=== PATIENT | female | born 1980 | race Caucasian/White ===

== ENCOUNTER 2024-08-13 10:58 | Emergency (ER) | payer SELFPAY ==
[2024-08-13 11:36] VITALS: BP 122/95; PULSE 90; RESP 18; TEMP 37.1; O2SAT 99
--- NOTE | 2024-08-13 12:01 | ECG_ITS ---
Test Date: 2024-08-13 12:47:29 Measurements Intervals Spencer Rate: 92 P: 62 DE: 142 QRS: 44 QRSD: 95 T: 63 QT: 351 QTc: 435 Interpretive Statements SINUS RHYTHM POSSIBLE LEFT ATRIAL ENLARGEMENT INCOMPLETE RIGHT BUNDLE BRANCH BLOCK BASELINE WANDER- I, AVL, V3 BORDERLINE ECG No previous ECG available for comparison Electronically Signed On 08-13-2024 12:50:28 CDT by Anastacio Ledbetter D.O.
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
[2024-08-13 12:46] LABS: Basophils Absolute Auto 0.1 K/mm3 (0.0-0.1); Basophils Percent Auto 1.3 % (0.2-1.2); Eosinophils Percent Auto 0.2 % (0-4.4); Hematocrit 41.8 % (37.0-47.0); Hemoglobin 13.8 g/dL (12.0-15.0); Immature Granulocyte Absolute 0.01 K/mm3 (0.00-0.031); Immature Granulocyte Percent A 0.2 % (0-0.5); Lymphocytes Absolute Auto 1.63 K/mm3 (0.9-3.2); Lymphocytes Percent Auto 35.4 % (18.3-44.2); Mean Corpuscular Hemoglobin 29.9 pg (26-34); Mean Corpuscular Volume 90.7 fl (80-100); Mean Platelet Volume 8.9 fl (7.4-10.4); Monocytes Absolute Auto 0.4 K/mm3 (0.1-0.6); Monocytes Percent Auto 7.8 % (2.6-8.5); Neutrophils Absolute Auto 2.5 K/mm3 (1.3-6.7); Neutrophils Percent Auto 55.1 % (45.5-73.1); Platelet Count Result 251 k/mm3 (150-375); Red Blood Count 4.61 M/mm3 (4.2-5.4); White Blood Count 4.6 K/mm3 (4.5-10.0)
[2024-08-13 12:55] LABS: Alanine Aminotransferase 64 U/L (6-35); Albumin Level 4.3 g/dL (3.5-5.1); Alkaline Phosphatase 101 U/L (38-126); Anion Gap 12 mmol/L (4-12); Aspartate Amino Transferase 89 U/L (14-36); Bilirubin,Total 0.1 mg/dL (0.2-1.3); Blood Urea Nitrogen 11 mg/dL (7-17); Calcium 8.4 mg/dL (8.4-10.2); Carbon Dioxide 26 mmol/L (22-30); Chloride 104 mmol/L (98-107); Estimated CRCL calculation 100 ml/min; Estimated Glomerular Filt Rate > 60; Glucose 145 mg/dL (65-110); Magnesium 1.9 mg/dL (1.6-2.3); Potassium 3.9 mmol/L (3.4-5.0); Sodium 142 mmol/L (137-145)
[2024-08-13 12:57] LABS: Acetaminophen < 10 ug/mL (10-30); Ethanol 250 mg/dL (<10); Salicylate < 1.0 mg/dL (2-20)
[2024-08-13 13:15] LABS: BEDSIDEPREGUCG Negative (Negative)
[2024-08-13 13:19] LABS: Add Urine Microscopic? NO; Appearance Urine Clear (Clear); Bilirubin Urine Negative (Negative); Blood Urine Negative (Negative); Color Urine Yellow (Yellow); Glucose Urine UA Negative (Negative); Ketones Urine Negative (Negative); Leukocyte Esterase Ur Negative LEU/UL (Negative); Nitrate Urine Negative (Negative); Protein Urine Negative (Negative); Specific Grav Ur 1.017 (1.001-1.035); Urobilinogen Urine 0.2 mg/dL (<2.0); pH Urine 6.5 (5.0-9.0)
[2024-08-13 13:21] LABS: Influenza A QL RT-PCR Negative (Negative); Influenza B QL RT-PCR Negative (Negative); RSV RNA, RT-PCR Negative (Negative); SARS-CoV-2 RNA PCR Negative (Negative)
[2024-08-13] MEDS: LACTATED RINGERS 2,000 ML 999 ML IV CONT (13:34)
[2024-08-13 13:40] LABS: Amphetamine Screen Urine Negative (Negative); Barbiturate Screen Urine Negative (Negative); Benzodiazepines Screen Urine Negative (Negative); Cannabinoid Screen Urine Positive (Negative); Cocaine Screen Urine Negative (Negative); Methadone Screen Urine Negative (Negative); Opiate Screen Urine Negative (Negative); Phencyclidine Screen Urine Negative (Negative)
[2024-08-13 13:47] LABS: Lipase 292 U/L (23-300)
[2024-08-13 13:53] LABS: Thyroid Stimulating Hormone Reflex 0.183 uIU/mL (0.465-4.68)
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
[2024-08-13 14:21] LABS: Free T4 Free Thyroxine Reflex 0.92 ng/dL (0.78-2.19)
--- NOTE | 2024-08-13 15:05 | PC.NURSE ---
Ordered pt a food tray
[2024-08-13 15:39] VITALS: BP 135/92; PULSE 104; RESP 18; O2SAT 99
[2024-08-13 16:07] LABS: Total Triiodothyronine (T3) 1.18 NG/ML (0.97-1.69)
--- OUTSIDE RECORDS SUMMARY | 2024-08-13 16:48 | XMS_ITS | Encounter Summary ---
Author Organization [facility] Address [address] [place] [address] Care Team Providers Care Animal Attendant Name Role Phone Unavailable Primary Care Provider Unavailabl e Reason for Visit * Reason Onset Date Comments Alcohol Problem 10/04/2019 Spoke germain/Tayo corcoran d patient is on list Encounter Details Date Type Department Care Team (Late st Contact Info) Description 10/04/2019 Telephone [facility] Admitting [address] [place] [address] [place] [address] [facility] [address] [place] [address] Alcohol Problem (Spoke w/Tayo and patient is on list) Social History Tobacco Use Types Packs/Day Years Used Date Smoking Tobacco: Every Day Cigarettes E-Cigarette/Mist Inh alation Device Smokeless Tobacco: Never Alcohol Use Standard Drinks/Week Comments Yes 2.5 (1 standard drin k = 0.6 oz pure alcohol) Pt states I drink a lot everyday Comments No Sex and Gender Information Value Date Recorded Sex Assigned at Not on file 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 No / Unsure 09/30/2019 10:51 PM CDT documented as of this encounter Plan of Treatment Not on file documented as of this encounter Visit Diagnoses Not on filedocumented in this encounter Additional Health Concerns Infection Onset Date Last Indicated Resolved Time R/O C. diff 07/08/2023 07/08/2023 07/08/2023 12:2 3 PM CDT C Diff 07/08/2023 07/08/2023 09/06/2023 1:16 AM CDT R/O C. diff 07/22/2024 07/22/2024 07/23/2024 7:46 AM CDT documented as of this encounter
--- OUTSIDE RECORDS SUMMARY | 2024-08-13 16:48 | XMS_ITS | Encounter Summary ---
Author Organization [facility] Address [address] [place] [address] Care Team Providers Care Equipment Operat0R Name Role Phone Elen Kong MD Primary Care Provider [phone] Encounter Details Date Type Department Care Team (Late st Contact Info) Description 07/14/2007 Orders Only [facility] Internal Medicine - [facility] [address] [address] [facility] [address] [place] [address] Delia Murphy, ANP [address] [place] [address] Social History Tobacco Use Types Packs/Day Years Used Date Smoking Tobacco: Never Assessed Comments Unknown Sex and Gender Information Value Date Recorded Sex Assigned at Not on file 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 MEDICATIONS: WELLBUTRIN XL ORAL TABLET 24 HR 150 MG, 1 po q AM x 3 days then 2 po q AM, 60 Dispensed, status: CONTINUED, 06/28/2007. [id number] RECEIVED FAXED REQUEST FROM THE PHARMACY DOCTOR`S RESPONSE: [email or web address] 07/14/07 at 02:50 pm MEDICATIONS: WELLBUTRIN XL ORAL TABLET 24 HR 150 MG, 1 po q AM x 3 days then 2 po q AM, 60 Dispensed, status: CONTINUED, 07/14/2007. FINAL ACTION: roger 07/14/07 at 02:54 pm Called pharmacy at 07/14/07 at 02:54 pm. Electronically Signed by: Daniella Robbins on Saturday, July 14, 2007 documented in this encounter Plan of Treatment Not on file documented as of this encounter Visit Diagnoses Not on filedocumented in this encounter Additional Health Concerns Infection Onset Date Last Indicated Resolved Time R/O C. diff 07/08/2023 07/08/2023 07/08/2023 12:2 3 PM CDT C Diff 07/08/2023 07/08/2023 09/06/2023 1:16 AM CDT R/O C. diff 07/22/2024 07/22/2024 07/23/2024 7:46 AM CDT documented as of this encounter Care Teams Equipment Operat0R Relationship Specialty Start Date End Date Elen Kong MD [address] [facility] [address] [place] [phone] PCP - General Internal Medicine 07/21/17 11/13/18 documented as of this encounter
--- OUTSIDE RECORDS SUMMARY | 2024-08-13 16:48 | XMS_ITS | Encounter Summary ---
Author Organization [facility] Address 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 Gender Identity Not on file Sexual Orientation Not on file documented as of this encounter Plan of Treatment Not on file documented as of this encounter Procedures Procedure Name Priority Date/Time Associated Diagnosis Comments CBC WITH DIFFERENTIAL Routine 07/29/2007 7:00 AM CDT TSH Routine 07/29/2007 7:00 AM CDT COMPREHENSIVE METABOLIC PANEL Routine 07/29/2007 7:00 AM CDT documented in this encounter Results * TSH (07/29/2007 7:00 AM CDT) TSH 0.79 mIU/L [facility] Comment: REFERENCE RANGE: > OR = 20 YEARS: 0.40-4.50 RANGES FIRST TRIMESTER 0.20-4.70 SECOND TRIMESTER 0.30-4.10 THIRD TRIMESTER 0.40-2.70 Test Performed at: [facility] [place] [address] [place] [address] SHIRA PADILLA MD Narrative [facility] - 07/29/2007 7:00 AM CDT Ordered by MELITON CAMACHO us Historical Provider CHEMISTRY ORDERABLES Final R esult [facility] [address] [place] [address] * CBC WITH DIFFERENTIAL (07/29/2007 7:00 AM CDT) WBC 7.6 3.8 - 10.8 Thousand/u L [facility] . [facility] RBC 4.44 3.80 - 5.10 Million/uL [facility] . [facility] HEMOGLOBIN 13.9 11.7 - 15.5 g/dL [facility] HEMATOCRIT 40.9 35.0 - 45.0 % [facility] . [facility] MCV 92.3 80.0 - 100.0 fL [facility] MCH 31.3 27.0 - 33.0 pg [facility] . [place] MCHC 33.9 32.0 - 36.0 g/dL [facility] . [facility] RDW 13.8 11.0 - 15.0 % [facility] . [place] PLATELETS 333 140 - 400 Thousand/u L [facility] . [facility] NEUTROPHIL ABSOLUTE 4,735 1,500 - 7,800 cells/uL [facility] . [facility] LYMPHOCYTE ABSOLUTE 2,067 850 - 3,900 cells/uL [facility] MONOCYTE ABSOLUTE 578 200 - 950 cells/uL [facility] . [place] EOSINOPHIL ABSOLUTE 160 15 - 500 cells/uL [facility] BASOPHILS ABSOLUTE 61 0 - 200 cells/uL [facility] NEUTROPHIL 62.3 % [facility] LYMPHOCYTES 27.2 % [facility] MONOCYTE 7.6 % [facility] EOSINOPHILS 2.1 % [facility] BASOPHILS 0.8 % [facility] Comment: Test Performed at: [facility] [address] [facility] [place] [address] SHIRA PADILLA MD Narrative [facility] - 07/29/2007 7:00 AM CDT Ordered by MELITON CAMACHO Historical Provider HEMATOLOGY ORDERABLES Final Result [facility] [address] [place] [address] * (ABNORMAL) COMPREHENSIVE METABOLIC PANEL (07/29/2007 7:00 AM CDT) GLUCOSE 99 65 - 99 mg/dL [facility] Comment:FASTING REFERENCE IN TERVAL BUN 5(L) 7 - 25 mg/dL [facility] CREATININE 0.74 0.50 - 1.20 mg/dL [facility] GFR >60 > OR = 60 mL/min/1.7 3m2 [facility] GFR, >60 > OR = 60 mL/min/1.7 3m2 [facility] BUN/CREAT RATIO 7 6 - 22 (calc) [facility] SODIUM 139 135 - 146 mmol/L [facility]. [facility] POTASSIUM 3.9 3.5 - 5.3 mmol/L [facility] . [facility] CHLORIDE 105 98 - 110 mmol/L [facility] . [facility] CO2 23 21 - 33 mmol/L [facility] . [facility] CALCIUM 9.2 8.6 - 10.2 mg/dL [facility]. [facility] TOTAL PROTEIN 7.4 6.2 - 8.3 g/dL [facility] ALBUMIN 4.5 3.6 - 5.1 g/dL [facility]. [facility] GLOBULIN 2.9 2.2 - 3.9 g/dL (calc) [facility]. [facility] ALBUMIN/GLOBULIN RATIO 1.6 1.0 - 2.1 (calc) [facility] BILIRUBIN TOTAL 0.5 0.2 - 1.2 mg/dL [facility] ALKALINE PHOSPHATASE 48 33 - 115 U/L [facility]. [facility] AST 12 10 - 30 U/L [facility]. [facility] ALT 6 6 - 40 U/L [facility] Comment: Test Performed at: [facility] [place] [address] [place] [address] SHIRA PADILLA MD Narrative [facility] - 07/29/2007 7:00 AM CDT Ordered by MELITON CAMACHO us Historical Provider CHEMISTRY ORDERABLES Final R esult [facility] [address] [place] [address] documented in this encounter Visit Diagnoses Not on filedocumented in this encounter Additional Health Concerns Infection Onset Date Last Indicated Resolved Time R/O C. diff 07/08/2023 07/08/2023 07/08/2023 12:2 3 PM CDT C Diff 07/08/2023 07/08/2023 09/06/2023 1:16 AM CDT R/O C. diff 07/22/2024 07/22/2024 07/23/2024 7:46 AM CDT documented as of this encounter Care Teams Tip Puncher Relationship Specialty Start Date End Date Elen Kong MD [address] [facility] [address] [place] [address] PCP - General Internal Medicine 07/21/17 11/13/18 documented as of this encounter
--- OUTSIDE RECORDS SUMMARY | 2024-08-13 16:48 | XMS_ITS | Encounter Summary ---
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 Gender Identity Not on file Sexual Orientation Not on file documented as of this encounter Progress Notes * [employer] [employer] - 09/21/2007 6:13 PM CDT TIME:09:23 am PATIENT`S HOME PHONE: PATIENT`S WORK PHONE: PATIENT`S INSURANCE: ANTHEM WHO TOOK THE CALL: Caroline Austin GENERAL INFORMATION * [employer], [employer] - 09/21/2007 6:13 PM CDT TIME:09:24 am PATIENT`S HOME PHONE: PATIENT`S WORK PHONE: PATIENT`S INSURANCE: ANTHEM WHO TOOK THE CALL: Caroline Austin GENERAL INFORMATION PCP: SECTION 1: need written rx and signed by to be faxed to [phone] wellbutrin xl oral tab 24 hr 150mg and also stratera printed and in the acute REQUESTED ACTION [email or web address] 06/28/07 at 09:35 am: MEDICATION REQUEST: Patient requests a refill. MEDICATIONS: WELLBUTRIN XL ORAL TABLET 24 HR 150 MG, 1 po q AM x 3 days then 2 po q AM, 60 Dispensed, status: CONTINUED, 06/28/2007. STRATTERA ORAL CAPSULE CONVENTIONAL 40 MG, one tablet daily for 3 days, then 2 tablets daily in AM,60 Dispensed, status: NEW PRESCRIPTION, 06/28/2007. STRATTERA ORAL CAPSULE CONVENTIONAL 40 MG, one tablet daily for 3 days, then 2 tablets daily in AM,60 Dispensed, status: CONTINUED, 06/28/2007. DOCTOR`S RESPONSE: oleg 06/28/07 at 05:32 pm done Electronically Signed by: Mary Camacho MD on Thursday, June 28, 2007 * [facility] [employer] - 09/21/2007 6:10 PM CDT TIME:11:57 am PATIENT`S HOME PHONE: PATIENT`S WORK PHONE: PATIENT`S INSURANCE: MIC WHO TOOK THE CALL: Janeth Whitney GENERAL INFORMATION WHO CALLED: [facility] SECTION 1: written REQUESTED ACTION [email or web address] 06/28/07 at 11:57 am: They need written order to discontinue her lexapro fax # [phone] FINAL ACTION: [email or web address] 06/28/07 at 05:38 pm ADDITIONAL COMMENTS: faxed Electronically Signed by: Caroline Austin on Thursday, June 28, 2007 documented in this encounter Plan of [...] documented as of this encounter Care Teams Hairspring Studder Relationship Specialty Start Date End Date Elen Kong MD [address] [facility] [address] [place] [address] PCP - General Internal Medicine 07/21/17 11/13/18 documented as of this encounter
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
--- OUTSIDE RECORDS SUMMARY | 2024-08-13 16:48 | XMS_ITS | Encounter Summary ---
Author Organization [facility] Address [address] [place] [address] Care Team Providers Care Converter Skimmer Name Role Phone Elen Kong MD Primary Care Provider [phone] Encounter Details Date Type Department Care Team (Late st Contact Info) Description 12/10/2008 Outpatient Historical [facility], [address] Mary Camacho MD [address] [place] [address] [place] [address] Urinary Tract Infection, Site not Specified Social History Tobacco Use Types Packs/Day Years Used Date Smoking Tobacco: Never Alcohol Use Standard Drinks/Week Comments Not Asked 0 (1 standard drink = 0.6 oz pur e alcohol) Comments No Sex and Gender Information Value Date Recorded Sex Assigned at Not on file Legal Sex Female 4:05 AM FARM ADVISOR Gender Identity Not on file Sexual Orientation Not on file documented as of this encounter Plan of Treatment Not on file documented as of this encounter Visit Diagnoses Diagnosis Urinary tract infection, site not specified documented in this encounter Additional Health Concerns Infection Onset Date Last Indicated Resolved Time R/O C. diff 07/08/2023 07/08/2023 07/08/2023 12:2 3 PM CDT C Diff 07/08/2023 07/08/2023 09/06/2023 1:16 AM CDT R/O C. diff 07/22/2024 07/22/2024 07/23/2024 7:46 AM CDT documented as of this encounter Care Teams Converter Skimmer Relationship Specialty Start Date End Date Elen Kong MD [address] [place] [address] [place] [id number] PCP - General Internal Medicine 07/21/17 11/13/18 documented as of this encounter
--- OUTSIDE RECORDS SUMMARY | 2024-08-13 16:48 | XMS_ITS | Encounter Summary ---
Author Organization [facility] Address [address] [place] [address] Care Team Providers Care Ssn/Ssbn Weapons Equipment Operator Name Role Phone Elen Kong MD Primary Care Provider [phone] Encounter Details Date Type Department Care Team (Late st Contact Info) Description 07/26/2007 Outpatient Historical [facility] Internal Medicine - [facility] [address] [id number] [facility] [address] [place] [address] Mary Camacho MD Social History Tobacco Use Types Packs/Day Years Used Date Smoking Tobacco: Never Assessed Comments Unknown Sex and Gender Information Value Date Recorded Sex Assigned at Not on file Legal Sex Female 4:05 AM SOLAR SALES REP Gender Identity Not on file Sexual Orientation [...] documented as of this encounter Care Teams Ssn/Ssbn Weapons Equipment Operator Relationship Specialty Start Date End Date Elen Kong MD [address] [facility] [address] [place] [address] PCP - General Internal Medicine 07/21/17 11/13/18 documented as of this encounter
--- OUTSIDE RECORDS SUMMARY | 2024-08-13 16:48 | XMS_ITS | Clinical Summary ---
Author Organization [facility] Address [address] [place] [address] Care Team Providers Care Intermodal Owner Operator Truck Driver Name Role Phone Family Care, Progressive Unavailable [phone] Miscellaneous, Not In File Unavailable Unava ilable Gurpreet Shirley MD Unavailable [phone] Gurpreet Fleming MD Primary Care Provider [phone] Allergies Active Allergy Reactions Criticality Noted Date [...] (NATHALY/BAD1/MDD/PTSD) Assessment & Plan (04/30/2024 6:56 PM HEAD OF DESIGN): Patient initially presented to the ED with [...] baseline, remains perseverative on discharge, going to [facility] as soon as possible. Discussed with patient that she will need to bring her previously, recently, filled medications from home (including doxepin, BuSpar, olanzapine, added these to her discharge instructions) with her to [facility] or have her mother pick them [...] use + has agreed to go to [facility] Alcohol withdrawal syndrome without complication 09/04/2023 [...] 01/27/2021 Assessment & Plan (04/30/2024 6:52 PM HEAD OF DESIGN): Patient states yes history of PTSD, with [...] Plan: - Librium 25 mg q24h - [facility] protocol - Ativan 2 mg for scores >8 - Ativan 4 mg for seizures - Regular diet - Folate, MV, Thiamine supplementation - Consults to auto service instructor, social work faculty member, and nutrition - PT/OT to prevent deconditioning while inpatient - Fall/Seizure/Aspiration precautions - Zofran and Reglan PRN - Follow up with Dr. Cervantes and Dr. Melissa at discharge - Appointment with Dr. Melissa for 01/20 at 10:30 am - Interested in [facility] after discharge - Also interested in discharging with Acamprosate Assessment & Plan (04/30/2024 6:51 PM HEAD OF DESIGN): Patient has a longstanding history of alcohol [...] Recommendations: - Please admit patient [facility]OLUNTARY to [facility] or [facility] under Dr. Booker under standard suicide/elopement/assault precautions (continue these in the ED). - Voluntary paperwork signed, faxed to Patient Placement, and placed in patient's physical chart. - Discussed with ED team and psychiatry corporate intern on-call, who are in agreement. - [...] Unspecified 02/10/2021,01/22/2019 Td, adsorbed 04/18/2005,09/17/1995 Tdap 08/22/2019 Surgical History Surgery Date Site/Laterality Comments OTHER SURGICAL HISTORY 1994 Orbital fracture AUGMENTATION MAMMOPLASTY breast augmentation Medical History Medical History Date Comments Hx Other Medical 2012 nasal surgery Seizures (HCC) Anxiety Depression Family History Medical History Relation Name Comments Prostate cancer Father Cancer -pros kirby; /Cancer, prostate; Bipolar disorder Sister Relation Name Status Comments Father Alive Sister Social History Tobacco Use Types Packs/Day Years Used Date Smoking Tobacco: Every Day Vaping Smokeless Tobacco: Never Tobacco Cessation:Ready to Q uit: Not Asked; Counseling Given: Not Answered Alcohol Use Standard Drinks/Week Comments No 0 (1 standard drink = 0.6 oz pur e alcohol) [facility] Utilities Answer Date Recorded In the past 12 months has e [employer], oil, or water [employer] threatened to shut off services in your [...] often do you attend chur ch or zoroastrian services? 1 to 4 times per year 04/25/2024 Do you belong to any clubs o r organizations such as latter-day groups, unions, fraternal or athletic groups, or [...] and heating? Not hard at all 04/25/2024 [facility] [facility] Occupat ional Health - Occupational Stress Questionnaire Answer Date Recorded [...] place to sleep or slept in a prison (including now)? No 12/29/2022 Housing Stability Vital Sign Answer Naren e Recorded In the last 12 months, was t here a time when you were not able to pay the mortgage or rent on time? No 04/25/2024 In the past 12 months, how m any times have you moved where you were living? 1 04/25/2024 At any time in the past 12 m [facility], were you homeless or living in a prison (including now)? No 04/25/2024 Personal Safety Answer [...] 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, DIRECTOR OF RESEARCH AND DEVELOPMENT, KRUPA) 01/27/2021 Comments No Sex and Gender Information Value Date Recorded Sex Assigned at Not on file Legal Sex Female 10:48 PM HEAD OF DESIGN Gender Identity Not on file Sexual Orientation Not on file Occupation Industry Job Start Date Job End Date Unemployed Not on file Not on file Not on file Obstetrics History Last Filed Vital Signs Vital Sign Reading Time Taken Comments Blood Pressure 109/88 04/30/2024 9:29 AM HEAD OF DESIGN Pulse 85 04/30/2024 9:29 AM HEAD OF DESIGN Temperature 36.8 C (98.2 F) 04/30/2024 9:29 AM HEAD OF DESIGN Respiratory Rate 18 04/30/2024 9:29 AM HEAD OF DESIGN Oxygen Saturation 99% 04/30/2024 9:29 AM HEAD OF DESIGN Inhaled Oxygen Concentration - - Weight 49.9 kg (110 lb) 04/24/2024 6:28 AM HEAD OF DESIGN Height 175.3 cm (5' 9 ) 04/24/2024 9:32 PM HEAD OF DESIGN Body Mass Index 16.24 04/24/2024 6:28 AM HEAD OF DESIGN Plan of Treatment Health Maintenance Due Date Last Done Comments Breast Cancer Screening-Mammogram 1980 Cervical Cancer Screening 1980 Depression Screening 1980 Varicella Vaccines (1 of 2 - 13+ 2-dose series) 1993 Hepatitis B Screening 1998 Regular Well Visit/Exam 18-64 1998 Pneumococcal vaccine <65 (1 of 2 - PCV) 1999 Covid-19 Vaccine (2 - season) 2023 09/01/2020 Influenza Vaccine (Season Ended) 2024 05/17/2023, 02/10/2021, 12/25/2019, Additional history exists DTaP/Tdap/Td Vaccine (4 - Td or Tdap) 08/21/2029 08/22/2019, 10/27/2018, 01/23/2006, Additional history exists Hepatitis C Screening Completed 04/25/2024, 023 HPV Vaccines Aged Out No longer eligi ble based on patient's age to complete this topic Procedures Procedure Name Priority Date/Time Associated Diagnosis Comments HEPATITIS C ANTIBODY Routine 04/25/2024 1:44 PM HEAD OF DESIGN from Last 3 Months or Most Recently Relevant to Health Maintenance Results * Hepatitis C antibody Blood (04/25/2024 1:44 PM HEAD OF DESIGN) Hep C Ab Nonreactive Nonreactive Comment:Antibodies to HCV no t detected. Does NOT exclude the possibility of recent exposure to HCV. Current interpretive data was last revised on 21 Blood 04/25/2024 1:44 PM HEAD OF DESIGN 04/25/2024 4:36 PM HEAD OF DESIGN us Jose Barrera MD LAB MICROBIOLOGY - GENER AL ORDERABLES Final Result [facility] Department [place] [address] from Last 3 Months or Most Recently Relevant to Health Maintenance Insurance [employer] EXCH[employer] Advance Directives For more information, please contact: [phone] * Full Code (Latest Code Status on [...] 10:16 AM 08/13/2022 7:12 PM Care Teams Intermodal Owner Operator Truck Driver Relationship Specialty Start Date End Date Gurpreet Fleming MD [address] [place] [address] PCP - General Family Medicine 09/05/23 Family Care, Progressive [address] [facility] 08/13/22 Miscellaneous, Not In File 12/29/22 Gurpreet Shirley MD Emergency Medicine 09/05/23
--- OUTSIDE RECORDS SUMMARY | 2024-08-13 16:48 | XMS_ITS | Encounter Summary ---
Author Organization [facility] Address [address] [place] [address] Care Team Providers Care Assembler Steam And Gas Turbine Name Role Phone Elen Kong MD Primary Care Provider [phone] Encounter Details Date Type Department Care Team (Late st Contact Info) Description 07/07/2007 Outpatient Historical [facility] Internal Medicine - [facility] [address] [id number] [facility] [address] [place] [address] Mary Camacho MD Social History Tobacco Use Types Packs/Day Years Used Date Smoking Tobacco: Never Assessed Comments Unknown Sex and Gender Information Value Date Recorded Sex Assigned at Not on file Legal Sex Female 4:05 AM REPEATER OPERATOR Gender Identity Not on file Sexual Orientation Not on file documented as of this encounter Last Filed Vital Signs Vital Sign Reading Time Taken Comments Blood Pressure 110/74 07/07/2007 11:00 AM CDT Pulse 86 07/07/2007 11:00 AM CDT Temperature 36.7 C (98 F) 07/07/2007 11:00 AM CDT Respiratory Rate - - Oxygen Saturation - - Inhaled Oxygen Concentration - - Weight 56.7 kg (125 lb) 07/07/2007 11:00 AM CDT Height - - Body Mass Index - - documented in this encounter Plan of Treatment [...] documented as of this encounter Care Teams Assembler Steam And Gas Turbine Relationship Specialty Start Date End Date Elen Kong MD [address] [facility] [address] [place] [address] PCP - General Internal Medicine 07/21/17 11/13/18 documented as of this encounter
--- OUTSIDE RECORDS SUMMARY | 2024-08-13 16:48 | XMS_ITS | Encounter Summary ---
Author Organization [facility] Address [address] [place] [address] Care Team Providers Care Meter Reader Inspector Name Role Phone Unavailable Primary Care Provider Unavailabl e Reason for Visit * Reason Onset Date Comments NAUSEA & LOSS OF APPETITE, E PALOMA ABUSE 10/04/2019 SPOKE WITH NICOL @ DR TALIA ESCOBAR'S OFFICE Encounter Details Date Type Department Care Team (Late st Contact Info) Description 10/04/2019 Telephone [facility] Admitting [id number] [place] [address] [place] [address] [place] [address] NAUSEA & LOSS OF APPETITE, ETOH ABUSE (SPOKE WITH NICOL @ DR CROOK'S OFFICE) Social History Tobacco Use Types Packs/Day Years [...] on file Legal Sex Female 4:05 AM ASSOCIATE STORE DIRECTOR Gender Identity Not on file Sexual Orientation [...]
--- OUTSIDE RECORDS SUMMARY | 2024-08-13 16:48 | XMS_ITS | Clinical Summary ---
Author Organization [facility] [employer] Address [address] [address] Phone Care Team Providers Care Casino Cashier Manager Name Role Phone Shannon Ortiz MD Primary Care Provider [phone] Allergies Active Allergy Reactions Criticality Noted Date Comments Amoxicillin Rash Low 10/18/2023 Levofloxacin Other 01/03/2023 Feels like law is splitting Medications folic acid (Folvite) 1 MG tablet Take by mouth in the morning. Active naltrexone ER (Vivitrol) injection Inject 4 mL (380 mg) into the shoulder, thigh, or buttocks every 28 (twenty-eight) days. 1.2 each 11 4 Active cetirizine (ZyrTEC) 10 MG tabletIndicatio ns:Sinus congestion TAKE 1 TABLET(10 MG) BY MOUTH IN THE MORNING 90 tablet 2 4 Active cyclobenzaprine (Flexeril) 10 MG tabletIndicatio ns:Muscle spasm Take 1 tablet (10 mg) by mouth if needed at bedtime for muscle spasms. 30 tablet 4 Active disulfiram (Antabuse) 250 MG tablet Take 1 tablet (250 mg) by mouth in the morning. 30 tablet 4 Active acamprosate (Campral) 333 MG EC tablet Take 2 tablets (666 mg) by mouth in the morning, at noon, and at bedtime. Do not crush, chew, or split. 180 tablet 2 4 Active nabumetone (Relafen) 500 MG tablet Take 1 tablet (500 mg) by mouth in the morning and at bedtime. 30 tablet 4 03/27/20 25 Active gabapentin (Neurontin) 100 MG capsule Take 1 capsule (100 mg) by mouth if needed in the morning, at noon, and at bedtime (neuropathic pain). 30 capsule 4 09/24/19 25 Active ofloxacin (Floxin) 0.3 % otic solution Administer 3 drops into the right ear in the morning and at bedtime. 10 mL 4 Active Hospital, Clinic, or Other Facility Administered Medication Ordered Dose Route Frequency Start Date End Date Status naltrexone ER (Vivitrol) injection 380 mgIndications:Encounter for long-term (current) use of medications 380 mg IM Every 28 days 09/19/2023 08/20/2024 Act chinedu Active Problems Problem Noted Date Diagnosed Date Encounter for hearing screening with abnormal fi ndings 03/26/2024 Right hip pain 05/22/2023 Assessment & Plan (05/22/2023 7:51 AM WIRING MECHANIC): Right Hip XR ordered Advised to take tylenol as needed for pain/inflammation. Sinus congestion 05/22/2023 Assessment & Plan (05/22/2023 7:51 AM WIRING MECHANIC): Zyrtec prescribed for sinus congesiton Ruptured ear drum, left 01/03/2023 Assessment & Plan (01/03/2023 3:53 PM CDT): Augmentin prescribed to be taken as directed. Left foot pain 01/03/2023 Assessment & Plan (01/03/2023 3:53 PM CDT): Advised to take ibuprofen/tylenol as needed for pain/inflammation. Muscle spasm of left lower extremity 01/03/2023 Assessment & Plan (01/03/2023 3:53 PM CDT): Flexeril prescribed to be used as needed. Advised it will cause drowsiness, dizziness and nausea Frequent urination 01/03/2023 Bipolar I disorder with sue (HCC ([facility]) 01/03/2023 PTSD (post-traumatic stress disorder) 01/27/2021 01/03/2023 Major depressive disorder, recurrent 11/04/2020 01/03/2023 Assessment & Plan (09/20/2023 8:45 PM CDT): Continue wellbutrin as directed. Patient is following up with Dr. Melissa next week. Assessment & Plan (05/22/2023 7:53 AM WIRING MECHANIC): Decreased Welbutrin dose from 300 to 150 ADHD (attention deficit hyperactivity disorder) 08/23/2016 01/03/2023 Alcohol abuse 06/07/2013 01/03/2023 Overview (01/03/2023): Last Assessment & Plan: Patient with many year history of alcohol abuse, frequent inpatient admissions for detox or complications of alcohol use. Per PCP avoid librium or any other meds with potential for abuse. Last drink was immediately prior to arrival in ED. - [facility] protocol - patient prefers not to address substance abuse during this admission - supplement thiamine, folate Assessment & Plan (09/20/2023 8:48 PM CDT): Madelin is following with Dr. Melissa next week on 09/19/2023. Librium prescribed to help with withdrawal and anxiety as needed at night. Continue propranolol as directed Continue doxepin as directed Continue prazosin as directed Assessment & Plan (01/03/2023 4:00 PM CDT): - Referral -states she has appointment with psychiatrist next week. Resolved Problems Problem Noted Date Diagnosed Date Resolved Date Depression 05/22/2023 09/19/2023 Encounters Date Type Department Care Team Description 08/01/2024 Telephone [facility] [address] [place] [address] Shannon Ortiz MD Hospital Follow-up 05/21/2024 Telephone [facility] [address] [place] [phone] Bernice Zhong MD from Last 3 Months Immunizations Immunization Administration Dates Next Due DTaP 01/23/2006 Influenza, Unspecified 02/10/2021,01/22/2019,04/2012 Influenza, injectable, quadr ivalent, preservative free 05/17/2023,12/25/2019,05/03/2019 Influenza, split virus, triv alent, injectable, contains preservative 02/07/2013 [place] SARS-CoV-2 Vaccination 09/01/2020 Novel [id number] 01/14/2014 PPD Test 03/26/2024 [employer] 2000 Covid-19 mRNA, LNP-S, Yogi-Sucrose Vaccine 12Yrs & Older 05/17/2023 TD (adult), 2 Lf tetanus tox oid, preservative free, adsorbed 04/18/2005,09/17/1995 Tdap 08/22/2019,10/27/2018 Family History Medical History Relation Name Comments Pancreatic cancer Father Kidney disease Sister stage III Relation Name Status Comments Father Sister Social History Tobacco Use Types Packs/Day Years Used Date Smoking Tobacco: Some Days Cigarettes Smokeless Tobacco: Never Tobacco Cessation:Ready to Q uit: Not Asked; Counseling Given: Not Answered Alcohol Use Standard Drinks/Week Comments Not Currently 0 (1 standard drink = 0.6 oz pur e alcohol) PHQ-9 Answer Date Recorded Patient Health Questionnaire-9 Score 8 03/06/2024 Comments No Sex and Gender Information Value Date Recorded Sex Assigned at Female 12/31/2022 4:20 PM EDT Legal Sex Female 4:07 PM EDT Gender Identity Female 01/17/2022 4:07 PM EDT Sexual Orientation Straight 01/17/2022 4: 07 PM EDT 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 Not on file Not on file Last Filed Vital Signs Vital Sign Reading Time Taken Comments Blood Pressure 116/68 03/06/2024 8:50 AM WIRING MECHANIC Pulse 67 03/06/2024 8:50 AM WIRING MECHANIC Temperature 36.3 C (97.3 F) 03/06/2024 8:50 AM WIRING MECHANIC Respiratory Rate 18 09/23/2018 8:50 AM CDT Oxygen Saturation 99% 03/06/2024 8:50 AM WIRING MECHANIC Inhaled Oxygen Concentration - - Weight 54.1 kg (119 lb 3.2 oz) 03/06/2024 8:50 A M WIRING MECHANIC Height 175.3 cm (5' 9 ) 03/06/2024 8:50 AM WIRING MECHANIC Body Mass Index 17.6 03/06/2024 8:50 AM WIRING MECHANIC Plan of Treatment Upcoming Encounters Date Type Department Care Team (Silva st Contact Info) Description 03/12/2025 9:30 AM WIRING MECHANIC Procedure Visit [facility] [address] [place] [address] Fide Gomez [facility]- [address] [place] [address] Health Maintenance Due Date Last Done Comments MMR Vaccines (1 of 1 - Standard series) 1981 Varicella Vaccines (1 of 2 - 13+ 2-dose series) 1993 Hepatitis B Vaccines (1 of 3 - 19+ 3-dose series) 1999 Pneumococcal Vaccine: 0-49 Years (1 of 2 - PCV) 1999 Mammogram 2020 Pap Smear 08/22/2023 COVID-19 Vaccine (3 - season) 2023 05/17/2023, 09/01/2020 Influenza Vaccine (Season Ended) 2024 05/17/2023, 02/10/2021, 12/25/2019, Additional history exists Well Adult Exam (Age 18+ Annual Physical) 03/06/2025 03/06/2024 Cervical Cancer Screening 03/06/2027 HPV/Cotest 03/06/2027 03/06/2024, 08/21/2020 DTaP/Tdap/Td Vaccines (6 - Td or Tdap) 08/21/2029 08/22/2019, 10/27/2018, 01/23/2006, Additional history exists Zoster Vaccines (1 of 2) 2030 HIV Screening Completed 07/03/2022, 12/18, 08/21/2020, Additional history exists Hepatitis B Screening Completed 07/22/2024 , 07/10/2024, 04/25/2024, Additional history exists Hepatitis C Screening Completed 07/22/2024 , 07/10/2024, 04/25/2024, Additional history exists HIB Vaccines Aged Out No longer eligi ble based on patient's age to complete this topic HPV Vaccines Aged Out No longer eligi ble based on patient's age to complete this topic Hepatitis A Vaccines Aged Out No long er eligible based on patient's age to complete this topic IPV Vaccines Aged Out No longer eligi ble based on patient's age to complete this topic Meningococcal B Vaccine Aged Out No l onger eligible based on patient's age to complete this topic Meningococcal Vaccine Aged Out No kacy jarvis eligible based on patient's age to complete this topic Rotavirus Vaccines Aged Out No longer eligible based on patient's age to complete this topic Procedures Procedure Name Priority Date/Time Associated Diagnosis Comments THINPREP TIS PAP AND HPV MRNA E6/E7 WITH REFLEX TO HPV 16,18/45 Routine 03/06/2024 2:30 PM WIRING MECHANIC Encounter for screening for human papillomavirus (HPV) HIV 1/2 ANTIGEN/ANTIBODY,FO URTH GENERATION W/RFL Routine 08/21/2020 2:08 PM CDT HEPATITIS C ANTIBODY Routine 10/27/2018 10:18 AM CDT HEPATITIS B SURFACE ANTIBODY QL Routine 10/27/2018 10:18 AM CDT from Last 3 Months or Most Recently Relevant to Health Maintenance Results * (ABNORMAL) THINPREP TIS PAP AND HPV mRNA E6/E7 WITH REFLEX TO HPV 16,18/45 (03/06/2024 2:30 PM WIRING MECHANIC) CLINICAL INFORMATION Routine exam [facility] 1 LMP 02/22/2024 [facility] 1 PREV. PAP 2020-ASCUS/HPV NEG [facility] 1 PREV. BX NO HX [facility] 1 SOURCE Cervix, Endocervix [facility] 1 Specimen adequacy: SEE NOTE [facility] 1 Comment: Satisfactory for evaluation. Endocervical/transformation zone component present. GENERAL COMMENTS Cytology Results: Epithelial Cell Abnormality(A) [facility] 1 PAP SMEAR Atypical Squamous Cells of Undetermined Significance (ASC-US)(A) [facility] 1 COMMENT SEE NOTE [facility] 1 Comment: This Pap test has been evaluated with computer assisted technology. Suggest clinical correlation and follow-up as clinically appropriate PERFORMED BY SEE NOTE [facility] 1 Comment: YQ, CT(ASCP) CT screening location: [place] [address] [place] [address] ELECTRONICALLY SIGNED BY SEE NOTE [facility] 1 Comment: Elliott Lizarraga M.D., Board Certified in Anatomic Pathology and Cytopathology. (electronic signature) (ALWAYS MESSAGE) SEE NOTE [facility] 1 Comment: EXPLANATORY NOTE: The Pap is a screening test for cervical cancer. It is not a diagnostic test and is subject to false negative and false positive results. It is most reliable when a satisfactory sample, regularly obtained, is submitted with relevant clinical findings and history, and when the Pap result is evaluated along with historic and current clinical information. HPV mRNA E6/E7 Not Detected Not Detected [facility] Comment: Methodology: Podiatric Technician-Mediated Amplification This assay detects E6/E7 viral messenger RNA (mRNA) from 14 high-risk HPV types (16,18,31,33,35,39,45,51,52,56,58,59,66,68). Cervical sources are required for HPV testing. If a vaginal source from a patient who has had a total hysterectomy with removal of cervix was submitted, please contact the testing laboratory for alternative testing options. For additional information, please refer to http://education.Quu/faq/RXI163u9 (This link if provided for information/ educational purposes only.) Swab Cervical swab / Unknown 03/06/2024 2:30 PM WIRING MECHANIC 03/07/2024 6:15 AM WIRING MECHANIC Narrative [facility] [place] - 03/16/2024 8:13 AM WIRING MECHANIC FASTING:UNKNOWN FASTING: UNKNOWN Fide Gomez [facility] CYTOLOGY ORDERABLES Final Result [facility] [place] [address] [place] [address], [facility] 1 * HIV 1/2 ANTIGEN/ANTIBODY,FOURTH GENERATION W/RFL (08/21/2020 2:08 PM CDT) HIV 1/2 AG/AB NON-REACT CHINEDU NON-REACT CHINEDU [facility] Comment:HIV-1 antigen and HI V-1/HIV-2 antibodies were not detected. There is no laboratory evidence of HIV infection. PLEASE NOTE: This information has been disclosed to you from records whose confidentiality may be protected by state law. If your state requires such protection, then the state law prohibits you from making any further disclosure of the information without the specific written consent of the person to whom it pertains, or as otherwise permitted by law. A general authorization for the release of medical or other information is NOT sufficient for this purpose. For additional information please refer to http://KeyView.Quu/faq/TAX145 (This link is being provided for informational/ educational purposes only.) The performance of this assay has not been clinically validated in patients less than 2 years old. 08/21/2020 2:08 PM CDT 08/21/2020 2:08 PM CDT Janna Stevenson [facility] LAB BLOOD ORDERABLES Fi nal Result Performing Organization Address City/[facility]/ZIP Co de Phone Number [facility] * HEPATITIS C ANTIBODY (10/27/2018 10:18 AM CDT) SIGNAL TO CUT-OFF 0.02 <1.00 [facility] Comment:HCV antibody was non -reactive. There is no laboratory evidence of HCV infection. In most cases, no further action is required. However, if recent HCV exposure is suspected, a test for HCV RNA (test code 62335) is suggested. For additional information please refer to http://KeyView.Quu/faq/YMU27e7 (This link is being provided for informational/ educational purposes only.) HEPATITIS C AB NON-REACTI VE NON-REACT CHINEDU [facility] 10/27/2018 10:1 8 AM CDT 10/27/2018 10:18 AM CDT Bryn Cervantes LAB BLOOD ORDERABLES Final Resul t [facility] * (ABNORMAL) HEPATITIS B SURFACE ANTIBODY QL (10/27/2018 10:18 AM CDT) HEPATITIS B SURF AB REACTIVE(A ) NON-REACTI VE [facility] 10/27/2018 10:1 8 AM CDT 10/27/2018 10:18 AM CDT Bryn Cervantes LAB BLOOD ORDERABLES Final Resul t [facility] from Last 3 Months or Most Recently Relevant to Health Maintenance Insurance [facility] [employer] Care Teams Casino Cashier Manager Relationship Specialty Start Date End Date Shannon Ortiz MD [address] [place] [id number] PCP - General Family Medicine 10/28/23
--- OUTSIDE RECORDS SUMMARY | 2024-08-13 16:48 | XMS_ITS | Encounter Summary ---
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 ALTERNATIVE PHONE NUMBER: [phone] WHO CALLED: CURRENT ALLERGY LIST: COLD TABLETS -OTC ROBITUSSIN PHARMACY NUMBER: [facility] [phone] call father OTHER INFORMATION: Patient is not currently . Patient is not currently nursing.pt is on BCP PROBLEMS: Madelin is being released from [facility] on Tuesday- SECTION 1: REQUESTED ACTION spirdm 06/30/07 at 12:24 pm: MEDICATION REQUEST: MEDICATIONS: STRATTERA ORAL CAPSULE CONVENTIONAL 40 MG, one tablet daily for 3 days, then 2 tablets daily in AM,60 Dispensed, status: CONTINUED, 06/28/2007. DOCTOR`S RESPONSE: oleg 06/30/07 at 01:02 pm MEDICATIONS: Call in to Pharmacy STRATTERA ORAL CAPSULE CONVENTIONAL 80 MG, 1 Every Day, 30 Dispensed, 2 Fills, status: NEW PRESCRIPTION, 06/30/2007. Please have her schedule an appt next week if possible. Also let them know script will be for one pill at dose equivalent to the previous 2 together that she has been taking FINAL ACTION: timmtt 06/30/07 at 04:18 pm Left message on patient`s recorder or with a family member 06/30/2007 at 04:18 pm. Called pharmacy at 06/30/07 at 04:18 pm. Electronically Signed by: Caroline Austin on Saturday, June 30, 2007 documented in this encounter Plan of [...] documented as of this encounter Care Teams Automated Process Operator Relationship Specialty Start Date End Date Elen Kong MD [address] [place] [address] [address] [place] [address] PCP - General Internal Medicine 07/21/17 11/13/18 documented as of this encounter
--- OUTSIDE RECORDS SUMMARY | 2024-08-13 16:48 | XMS_ITS | Encounter Summary ---
Author Organization [facility] Address [address] [place] [address] Care Team Providers Care Manufacturing Engineer Automotive Name Role Phone Elen Kong MD Primary Care Provider [phone] Encounter Details Date Type Department Care Team (Late st Contact Info) Description 03/24/2007 Outpatient Historical [facility] Internal Medicine - [facility] [id number] [place] [address] Mary Camacho MD Social History Tobacco Use Types Packs/Day Years Used Date Smoking Tobacco: Never Assessed Comments Unknown Sex and Gender Information Value Date Recorded Sex Assigned at Not on file 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
--- OUTSIDE RECORDS SUMMARY | 2024-08-13 16:48 | XMS_ITS | Encounter Summary ---
Author Organization [facility] Address 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 PHARMACY NUMBER: [phone] SECTION 1: REQUESTED ACTION juan 03/24/07 at 10:44 am: MEDICATION REQUEST: MEDICATIONS: VERAMYST NASAL SUSPENSION 27.5 MCG/SPRAY, 2 sprays each nostril once daily, 1 Dispensed, 3 Fills, status: NEW PRESCRIPTION, 03/23/2007. pt doesn't want this cost to much $60.00 Pharm asked about flonase, nasacort pt doesn't want either Pharm said what about Azmacort and pt agreed pharm is needing a order for Azmacort ? DOCTOR`S RESPONSE: oleg 03/24/07 at 11:09 am MEDICATIONS: Call in to Pharmacy VERAMYST NASAL SUSPENSION 27.5 MCG/SPRAY, 2 sprays each nostril once daily, 1 Dispensed, 3 Fills, status: DISCONTINUED, 03/24/2007. AZMACORT INHALATION AEROSOL SOLUTION 75 MCG/ACT, 4 inh bid, 1 Dispensed, 2 Fills, status: NEW PRESCRIPTION, 03/24/2007. PT PROBLEMS & ORDERS: SECTION 2: FINAL ACTION: spirdm 03/24/07 at 01:33 pm Called pharmacy at 03/24/07 at 01:33 pm. ds Electronically Signed by: Sierra Perez on Saturday, March 24, 2007 * Lilia, [facility] Conv Transcriptions - 08/31/2007 10:01 AM CDT WEIGHT: 116lbs BLOOD PRESSURE: 116/70 Left Arm Sitting TEMPERATURE: 97.7??f Oral PULSE: 64 Right Radial, Regular NURSE NAME: Ella Harvey ALLERGIES: Allergies are as listed. MEDICATIONS: Medication list current. CHIEF COMPLAINT Patient complains of earaches.ears clogged HISTORY: HISTORY OF PRESENT ILLNESS: EARACHE: The symptoms began weeks ago. The symptoms are located in both ears. Right is much worse. The patient has symptoms of ear pain, has no symptoms of fever, has no symptoms of headache, has nasal congestion, has symptoms of nausea, has symptoms of tinnitus. There is pain present that is described as achy, pressure-like. The severity is moderate, marked. The symptoms have been intermittent. There were no precipitating factors or unusual exposures. have gotten to point hard to tolerate. Hasseen ENT in past. Presently not with good insurance coverage if intervention such as tubes needed. A Few nasal steroids in past have not been effective but admits may not hav e used regularly. CURRENT MEDICATION LIST: CONTROL PILLS, CURRENT ALLERGY LIST: COLD TABLETS -OTC ROBITUSSIN ROS: GENERAL: HAS LOST WEIGHT. Pt with history of eating disorder in high school. Denies any such activities since. Feels ear pain is contributing. When pressed further admits she is under a great deal ofstress. 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 Has a job waiting for her if she passes. Pt feels parents have not been very supportive- feels they do not bvelieve that she can pass the exam- refused to pay for her to take it a third. time. Is presently living at home. financial issues with her parent. Father is 790- feels his memory is slipping a bit. When discussed with MOM as it effectsher- MOM very defensive and not supportive. He friends and main support systems are in [place] went to school. Becomes very tearful when discussing. Feels that she knows the material to take the exam.. hard time focusing and concentrating. Also done on computer screen. This has always been very difficult for her. Historically prints reading material out and reads on paper- does notabsorb as well if read off computer screen. Also has limited attention span. Unable to focus for the 4hour interval required. Was seeing a psychiatrist for depression/anxiety- found out insurance is not covering and could not return. Was on several medications- either did not tolerate or was not able to take long enough due to costs. EYES: No complaints of vision difficulties. ENT: See HISTORY OF PRESENT ILLNESS, EARACHES NOTED BILATERALLY, EXPERIENCES A FULL FEELING IN THE EARS, BILATERAL EAR PAIN NOTED, no tinnitus, no vertigo, NASAL CONGESTION PRESENT, RECURRENT SINUS CONGESTION NOTED, no epistaxis, soreness of the tongue, dysphagia, or hoarseness. CARDIAC: No chest pain, palpitations, orthopnea, dyspnea on exertion, or paroxysmal nocturnal dyspnea. RESPIRATORY: No dyspnea, cough, hemoptysis or wheezing. NEUROLOGIC: HAS RACING THOUGHTS, HAS DECREASED CONCENTRATION ABILITY, no confusion or disorientation, HAS HEADACHES, no memory loss, no complaints of tremor, no complaints of weakness. PSYCHIATRIC: HAS DEPRESSIVE SYMPTOMS, NOTES INCREASED NERVOUSNESS, NOTES INCREASED STRESS, no change in personality. SOCIAL HISTORY: TOBACCO USE: Has no significant smoking history. ALCOHOL: Drinks a minimal amount of alcohol. ILLICIT DRUG USE: Denies illicit drug use. PHYSICAL EXAMINATION: CONSTITUTIONAL: GENERAL APPEARANCE: THIN BODY HABITUS. EYES: CONJUNCTIVAE/LIDS: Conjunctivae appear normal, sclera appear normal.dark circles under eyes PUPILS: Pupils equal and reactive. EARS, NOSE, MOUTH AND THROAT: EARS: TYMPANIC MEMBRANE RETRACTION BILATERALLY, no tympanic membrane bulging in either ear, no effusion present bilaterally, no tympanic membrane inflammation in either ear. NOSE (AND SINUS): CLEAR NASAL DISCHARGE NOTED BILATERALLY, TURBINATES INFLAMED BILATERALLY, TURBINATES SWOLLEN BILATERALLY. ORAL: Normal oropharynx. NECK/THYROID: No enlargement, tenderness, or mass in the thyroid noted. RESPIRATORY: Normal respiratory effort, normal to auscultation. CARDIOVASCULAR: CARDIAC: Rhythm regular with no murmurs, gallops, rubs or abnormal heart sounds. LYMPHATICS: No lymphadenopathy in the neck. NEUROLOGIC: CRANIAL NERVES: cloth dye range operator II-XII grossly intact. PSYCHIATRIC: Appropriate judgment and insight, oriented to person, place, and time, normal attention and concentration during conversation, CRIED DURING THE EXAM, DISINTERESTED IN USUAL ACTIVITIES. ASSESSMENT/PLAN: 314.00-ADD likely effecting her ability to pass her boards w/o special accomadation 381.81-NONSUPPURATIVE OTITIS MEDIA AND EUSTACHIAN TUBE DI MEDICATIONS: NASACORT AQ NASAL AEROSOL SOLUTION 55 MCG/ACT, 2 sprays each side qd, 1 Dispensed, status: NEW PRESCRIPTION, 03/24/2007. 2 samples given 311-DEPRESSION pt denies suicidal thoughts. Encouraged her to reach out to her support systems- friends MEDICATIONS: LEXAPRO ORAL TABLET 10 MG, 1 Every Day, 30 Dispensed, status: NEW PRESCRIPTION, 03/24/2007. samplesgiven . Instructed to take 1/2 tablet for first few days. Possible SE reviewed. Pt to return in 3-4weeks 783.21-SYMPTOM, ABNORMAL LOSS OF WEIGHT suspect stress/depression related. If further weight decline next visit will require evaluation Electronically Signed by: Mary Camacho MD on Monday, March 26, 2007 documented in this encounter Plan of [...] documented as of this encounter Care Teams Pattern Generator Operator Relationship Specialty Start Date End Date Elen Kong MD [address] [place] [address] PCP - General Internal Medicine 07/21/17 11/13/18 documented as of this encounter
--- OUTSIDE RECORDS SUMMARY | 2024-08-13 16:48 | XMS_ITS | Encounter Summary ---
Author Organization [facility] Address [address] [place] [address] Care Team Providers Care Special Service Officer Name Role Phone Elen Kong MD Primary Care Provider [phone] Encounter Details Date Type Department Care Team (Late st Contact Info) Description 01/12/2007 Orders Only [facility] Internal Medicine - [facility] 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 MEDICATIONS: Patient is taking no medications at present. CHIEF COMPLAINT R ear pain. Strattera and Celexa Rx. HISTORY: HISTORY: 314.00-ADD The patient reports symptoms. had been seeing a psychiatrist for meds, but he is no longer on her insurance. Is searching for new MD. but in meantime, would like to get meds filled here. Changed to Straterra just 6 weeks ago as she wanted to be off stimulants. Also was started on Celexa for depression, which she felt some improvement. Has been out of both meds for 2 weeks. HISTORY OF PRESENT ILLNESS: EARACHE: The symptoms began approximately 2 weeks ago. The predominance of symptoms are from the right ear. The patient has no symptoms of sore throat, has no symptoms of runny nose, has no symptoms of ear drainage, has no symptoms of ear pain, has no symptoms of hearing changes. NO pain, but feelscannotget to pop. Was treated successfully with Astelin in past. CURRENT MEDICATION LIST: CURRENT ALLERGY LIST: COLD TABLETS -OTC PHYSICAL EXAMINATION: CONSTITUTIONAL: GENERAL APPEARANCE: Healthy appearing patient in no distress. EARS, NOSE, MOUTH AND THROAT: EARS: RIGHT TYMPANIC MEMBRANE RETRACTION, no effusion present in the right ear, no right tympanic membrane inflammation. NOSE (AND SINUS): No abnormality of the nose or sinuses is noted. ORAL: Normal oropharynx. RESPIRATORY: Clear to auscultation and percussion. Normal respiratory effort. CARDIOVASCULAR: CARDIAC: Regular rhythm. No murmurs, rubs, or gallops. PSYCHIATRIC: Mood and affect appropriate, normal attention and concentration, appropriate judgment and insight. ASSESSMENT/PLAN: 314.00-ADD ASSESSMENT: advised with refill meds for now, but if changes are needed, will need specialist. MEDICATIONS: STRATTERA ORAL CAPSULE CONVENTIONAL 40 MG, one tablet daily for 3 days, then 2 tablets daily in AM,60 Dispensed, status: NEW PRESCRIPTION, 01/12/2007. CELEXA ORAL TABLET 40 MG, 1 Every Day, 30 Dispensed, status: NEW PRESCRIPTION, 01/12/2007. LAB ORDERS: Order number: [id number] Test Ordered: HEPATIC FUNCTION PANEL 1293 381.81-NONSUPPURATIVE OTITIS MEDIA AND EUSTACHIAN TUBE DI MEDICATIONS: ASTELIN NASAL SOLUTION 137 MCG/SPRAY BOTTLES, 2 sprays to each nare bid, 1 Dispensed, 2 Fills, status: NEW PRESCRIPTION, 01/12/2007. RETURN VISIT : Patient instructed to return in 4 weeks.follow up of celexa and straterra Electronically Signed by: Delia Murphy RN, CS, ANP on , January 12, 2007 Electronically Signed by: Kanwal Rodrigez MD on Wednesday, January 17, 2007 documented in this encounter Plan of [...] documented as of this encounter Care Teams Special Service Officer Relationship Specialty Start Date End Date Elen Kong MD [address] [place] [address] PCP - General Internal Medicine 07/21/17 11/13/18 documented as of this encounter
--- OUTSIDE RECORDS SUMMARY | 2024-08-13 16:48 | XMS_ITS | Clinical Summary ---
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 in appearance. No abdominal lymphadenopathy is identified. No free intraperitoneal gas is identified. The urinary bladder is decompressed. The uterus is normal in appearance bilateral ovarian follicles are noted with a dominant right ovarian follicle measuring 2.6 cm. No suspicious adnexal lesions are identified. No pelvic lymphadenopathy is identified. The abdominal aorta is normal in caliber without evidence of aneurysmal dilatation. No suspicious lytic or blastic osseous lesions are identified. IMPRESSION: 1. Acute interstitial edematous pancreatitis without discrete, drainable peripancreatic fluid collection or vascular complication. DICTATION LOCATION: Location 1 - [facility] Wilfrido Sofia DO CT ORDERABLES Final Resul t * C-REACTIVE PROTEIN (07/22/2024 8:29 AM CDT) CRP <3.0 <5.0 mg/L 07/22/2024 11:36 AM CDT [facility] [employer] [facility] Blood Venipuncture / Unknown 07/22/2024 8:29 AM CDT 07/22/2024 8:32 AM CDT Gurpreet Bernabe MD CHEMISTRY ORDERABLES Final Res ult [facility]# [id number] [address] [place] [address] * TSH (07/22/2024 8:29 AM CDT) Only the most recent of2 resultswithin the time period is included. TSH 0.48 0.27 - 4.20 uIU/mL 07/22/2024 9:24 AM CDT [facility] LABORATORY [facility] Blood Venipuncture / Unknown 07/22/2024 8:29 AM CDT 07/22/2024 8:32 AM CDT Wilfrido Sofia DO CHEMISTRY ORDERABLES Final Result [facility] [employer] [facility]# [id number] [address] [place] [address] * (ABNORMAL) DRUG SCREEN, URINE (07/22/2024 8:00 AM CDT) AMPHETAMINE QUAL, URINE Negative Negative 07/22/2024 8:54 AM CDT [facility] LABORATORY SERVICES [facility] BARBITURATE QUAL, URINE Negative Negative 07/22/2024 8:54 AM CDT [facility] LABORATORY SERVICES [facility] BENZODIAZEPINE QUAL, URINE Presumptive Positive(A) Negative 07/22/2024 8:54 AM CDT [facility] LABORATORY SERVICES [facility] COCAINE QUAL URINE Negative Negative 07/22/2024 8:54 AM CDT [facility] LABORATORY SERVICES - [facility] OPIATE QUAL, URINE Negative Negative 07/22/2024 8:54 AM CDT [facility] LABORATORY SERVICES [facility] CANNABINOIDS QUAL, URINE Presumptive Positive(A) Negative 07/22/2024 8:54 AM CDT [facility] LABORATORY SERVICES - [facility] PCP QUAL, URINE Negative Negative 8:54 AM CDT [facility] LABORATORY SERVICES - [facility] OXYCODONE QUAL, URINE Negative Negative 07/22/2024 8:54 AM CDT [facility] LABORATORY SERVICES [facility] METHADONE QUAL, URINE Negative Negative 07/22/2024 8:54 AM [facility] FENTANYL QUAL, URINE Negative Negative 07/22/2024 8:54 AM [facility] CREATININE, URINE 126.0 29.0 - 226.0 mg/dL 07/22/2024 8:54 AM [facility] Comment:Reference Range vari es with fluid intake and diet. Urine URINE SPECIMEN OBTAINED BY CLEAN CATCH PROCEDURE / Unknown Collection / Unknown 07/22/2024 8:00 AM CDT 07/22/2024 8:11 AM [facility] - 07/22/2024 8:54 AM [facility] This test is a qualitative screen. The presumptive positive results should not be used for legal purposes. If confirmation of results is desired, the lab must be contacted without delay. Drug Ref. Range Screening Threshold Amphetamines Negative 500 ng/mL Barbiturates Negative 200 ng/mL Benzodiazepines Negative 100 ng/mL Cannabinoids Negative 50 ng/mL Cocaine Negative 150 ng/mL Methadone Negative 300 ng/mL Opiates Negative 300 ng/mL Oxycodone Negative 100 ng/mL Phencyclidine Negative 25 ng/mL Fentanyl Negative 5 ng/mL us Luis Alberto Chino MD URINE ORDERABLES Final Resu lt [facility]# [id number] [address] [facility] [place] [address] * (ABNORMAL) URINALYSIS WITH REFLEX MICROSCOPIC (07/22/2024 8:00 AM CDT) COLOR UA Yellow Pale to Dark Yellow 07/22/2024 8:18 AM [facility] CLARITY UA Clear Clear 07/22/2024 8:18 AM [facility] SPECIFIC GRAVITY UA 1.026 1.003 - 1.035 07/22/2024 8:18 AM [facility] PH UA 9.0(A) 5.0 - 8.0 07/22/2024 8:18 AM [facility] LEUKOCYTE ESTERASE UA Negative Negative 07/22/2024 8:18 AM CDT [employer] LABORATORY SERVICES - [facility] NITRITE UA Negative Negative 07/22/2024 8:18 AM CDT [employer] LABORATORY SERVICES - [facility] PROTEIN UA 2+(A) Negative 07/22/2024 8:18 AM CDT [employer] SERVICES - [facility] GLUCOSE UA Negative Negative 07/22/2024 8:18 AM CDT [employer] LABORATORY SERVICES - [facility] KETONES UA Negative Negative 07/22/2024 8:18 AM CDT [employer] LABORATORY SERVICES - [facility] UROBILINOGEN UA Normal <2.0 mg/dL 8:18 AM CDT [employer] LABORATORY SERVICES - [facility] BILIRUBIN UA Negative Negative 07/22/2024 8:18 AM CDT [employer] SERVICES - [facility] BLOOD UA Negative Negative 07/22/2024 8:18 AM CDT [employer] LABORATORY SERVICES - [facility] WBC UA 0-2 0 - 2 /hpf 07/22/2024 8:18 AM CDT [employer] SERVICES - [facility] RBC UA 0-2 0 - 2 /hpf 07/22/2024 8:18 AM CDT [employer] LABORATORY SERVICES - [facility] BACTERIA UA Negative Negative /hpf 07/22/2024 8:18 AM T [employer] LABORATORY [facility] - [facility] EPITHELIAL CELLS, URINE 0-5 0 - 5 /hpf 07/22/2024 8:18 AM T [employer] SERVICES - [facility] Urine URINE SPECIMEN OBTAINED BY CLEAN CATCH PROCEDURE / Unknown Collection / Unknown 07/22/2024 8:00 AM CDT 07/22/2024 8:08 AM CDT us Luis Alberto Chino MD URINE ORDERABLES Final Resu lt [facility] [employer] [facility] [id number] 1 [facility] [address] [place] [address] * HCG QUALITATIVE, URINE (07/22/2024 8:00 AM CDT) HCG QUAL URINE Negative Negative 07/22/2024 8:25 AM CDT [employer] SERVICES [facility] COLOR UA Yellow Pale to Dark Yellow 07/22/2024 8:25 AM CDT [facility] - [facility] CLARITY UA Clear Clear 07/22/2024 8:25 AM CDT [facility] Urine URINE SPECIMEN OBTAINED BY CLEAN CATCH PROCEDURE / Unknown Collection / Unknown 07/22/2024 8:00 AM CDT 07/22/2024 8:11 AM CDT Luis Alberto Chino MD URINE ORDERABLES Final Resu lt Performing Organization Address City/State/[facility] Co de Phone Number [facility]# [id number] [address] [place] [address] * INFLUENZA A/B, RSV AND COVID-19 PCR PANEL (07/22/2024 5:00 AM CDT) COVID-19 PCR NOT DETECTED Not Detected 07/23/19 5:52 AM CDT [facility] [employer] [facility] - [facility] Influenza A by PCR NOT DETECTED Not Detected 07/22/2024 5:52 AM CDT [facility] Influenza B by PCR NOT DETECTED Not Detected 07/22/2024 5:52 AM CDT [facility] [employer] [facility] RSV by PCR NOT DETECTED Not Detected 07/22/2024 5:52 AM CDT [facility] [employer] [facility] Upper Respiratory ANTERIOR NARES SWAB / Unknown Collection / Unknown 07/22/2024 5:00 AM CDT 07/22/2024 5:02 AM CDT Narrative [facility] LABORATORY [facility] - [facility] - 07/22/2024 5:52 AM CDT This test has been authorized by the FDA under an Emergency Use Authorization for use by authorized laboratories. This test has been validated in accordance with the FDA's guidance regarding Coronavirus Disease-2019 testing. Optimum specimen types and timing for peak viral levels during infection have not been determined. A negative RT-PCR result does not rule out infection with the 2019-Novel Coronavirus. Luis Alberto Chino MD MICROBIOLOGY - GENERAL ORDE RABLES Final Result [employer] [facility] CL[facility]# [id number] [address] [place] [address] * (ABNORMAL) CBC WITH DIFFERENTIAL (07/22/2024 5:00 AM CDT) WBC 9.5 4.0 - 9.8 K/uL 07/22/2024 5:18 AM CDT [employer] LABORATORY SERVICES - [facility] RBC 4.36 3.90 - 4.90 M/uL 07/22/2024 5:18 AM CDT [employer] LABORATORY SERVICES - [facility] HEMOGLOBIN 13.2 11.8 - 14.8 g/dL 07/22/2024 5:18 AM CDT [employer] LABORATORY SERVICES - . [facility] HEMATOCRIT 40.0 35.5 - 44.0 % 07/22/2024 5:18 AM CDT [employer] LABORATORY SERVICES - . [facility] MCV 91.7 82.0 - 99.0 fL 07/22/2024 5:18 AM CDT [employer] LABORATORY SERVICES - . [facility] MCH 30.3 27.2 - 32.6 pg 07/22/2024 5:18 AM CDT [employer] LABORATORY SERVICES - . [facility] MCHC 33.0 31.5 - 35.5 g/dL 07/22/2024 5:18 AM CDT [employer] LABORATORY SERVICES - . [facility] RDW 14.6(H) 11.5 - 14.5 % 07/22/2024 5:18 AM CDT [employer] LABORATORY SERVICES - . [facility] RDW-STDEV 48.7 37.1 - 48.7 fL 07/22/2024 5:18 AM CDT [employer] LABORATORY SERVICES - . [facility] PLATELETS 274 140 - 350 K/uL 07/22/2024 5:18 AM CDT [employer] LABORATORY SERVICES - . [facility] MPV 9.0(L) 9.3 - 12.4 fL 07/22/2024 5:18 AM CDT [facility] [facility]ATORY SERVICES - [facility] NEUTROPHILS 62 % 07/22/2024 5:18 AM CDT [facility] [facility]ATORY SERVICES - [facility] LYMPHOCYTES 27 % 07/22/2024 5:18 AM CDT [facility] [facility]ATORY [facility] - [facility] MONOCYTES 9 % 07/22/2024 5:18 AM CDT [employer] LABORATORY SERVICES - . [facility] EOSINOPHILS 1 % 07/22/2024 5:18 AM CDT [facility] LABORATORY SERVICES - [facility] BASOPHILS 1 % 07/22/2024 5:18 AM CDT [facility] LABORATORY SERVICES - . [facility] IMMATURE GRANULOCYTES 0 % 07/22/2024 5:18 AM CDT [facility] LABORATORY SERVICES - . [facility] NEUTROPHIL ABSOLUTE 5.90 1.90 - 7.00 K/uL 07/22/2024 5:18 AM CDT [facility] LABORATORY SERVICES - . [facility] LYMPHOCYTE ABSOLUTE 2.56 0.70 - 4.50 K/uL 07/22/2024 5:18 AM CDT [employer] LABORATORY SERVICES - . [facility] MONOCYTE ABSOLUTE 0.80 0.10 - 1.30 K/uL 07/22/2024 5:18 AM CDT [employer] LABORATORY SERVICES - . [facility] EOSINOPHIL ABSOLUTE 0.09 0.00 - 0.70 K/uL 07/22/2024 5:18 AM CDT [employer] LABORATORY SERVICES - . [facility] BASOPHILS ABSOLUTE 0.09 0.00 - 0.20 K/uL 07/22/2024 5:18 AM CDT [employer] LABORATORY SERVICES - . [facility] IMMATURE GRANULOCYTES ABSOLUTE 0.02 0.00 - 0.03 K/uL 07/22/2024 5:18 AM CDT [employer] LABORATORY SERVICES - [facility] Blood Venipuncture / Unknown 07/22/2024 5:00 AM CDT 07/22/2024 5:02 AM CDT Luis Alberto Chino MD HEMATOLOGY ORDERABLES Final Result [facility] LABORATORY SERVICES [facility]# [id number] [address] [place] [address] [place] [address] * (ABNORMAL) ETHANOL LEVEL (07/21/2024 3:58 AM CDT) ETHANOL 226.00(H) <10.10 mg/dL 07/21/2024 4:46 AM CDT [facility] LABORATORY SERVICES - [facility] ETHANOL % 0.23 %w/v 07/21/2024 4:46 AM CDT [facility] LABORATORY [facility] Blood Venipuncture / Unknown 07/21/2024 3:58 AM CDT 07/21/2024 4:00 AM CDT Baudilio Alanis DO CHEMISTRY ORDERABLES Final Result Performing Organization Address [facility] Co de Phone Number [facility] CLIA# [id number] [address] [place] [address] * (ABNORMAL) ACETAMINOPHEN LEVEL (07/21/2024 3:58 AM CDT) ACETAMINOPHEN LEVEL <5(L) 10 - 30 ug/mL 07/21/2024 4:44 AM CDT [facility] [employer] [facility] Comment: Acetaminophen Toxic Range - Post Dose 4 hr >200 ug/mL 8 hr >100 ug/mL 12 hr >50 ug/mL Pediatric toxic concentration: 2 hr post ingestion(liquid)= >225 ug/mL Blood Venipuncture / Unknown 07/21/2024 3:58 AM CDT 07/21/2024 4:00 AM CDT Baudilio Alanis DO CHEMISTRY ORDERABLES Final Result Performing Organization Address [facility] de Phone Number [facility] [employer] [facility] CLIA# [id number] [address] [place] [address] * (ABNORMAL) SALICYLATE LEVEL (07/21/2024 3:58 AM CDT) SALICYLATE LEVEL <1.0(L) 3.0 - 30.0 mg/dL 07/21/2024 4:44 AM CDT [facility] [employer] [facility] Blood Venipuncture / Unknown 07/21/2024 3:58 AM CDT 07/21/2024 4:00 AM CDT Baudilio Alanis DO CHEMISTRY ORDERABLES Final Result Performing Organization Address City/State/[facility] Co de Phone Number [facility]# [id number] [address] [place] [address] from Last 3 Months Insurance RX [employer] (INTERNAL) [facility] RX [facility] Commercial RX [facility] Commercial RX [facility] Commercial BCBS EXCHANGE BCBS EXCHANGE Advance Directives For more information, please contact: [phone] * Full Code (Latest Code Status on File) Date Activated Date Inactivated Comments 07/27/2024 9:37 PM 07/29/2024 5:14 PM * Full Code Date Activated Date Inactivated Comments 07/22/2024 9:16 AM 07/27/2024 9:30 PM * Full Code Date Activated Date Inactivated Comments 04/13/2024 8:02 PM 04/19/2024 6:25 PM * Full Code Date Activated Date Inactivated Comments 04/06/2024 11:18 PM 04/12/2024 5:07 PM * Full Code Date Activated Date Inactivated Comments 07/08/2023 2:00 AM 07/12/2023 4:35 PM
--- OUTSIDE RECORDS SUMMARY | 2024-08-13 16:48 | XMS_ITS | Encounter Summary ---
Author Organization [facility] Address [address] [place] [address] Care Team Providers Care Diamond Merchant Name Role Phone Elen Kong MD Primary Care Provider [phone] Encounter Details Date Type Department Care Team (Late st Contact Info) Description 01/12/2007 Outpatient Historical [facility] Internal Medicine - [facility] [address] [address] [facility] [address] [place] [address] Mary Camacho MD Social History Tobacco Use Types Packs/Day Years Used Date Smoking Tobacco: Never Assessed Comments Unknown Sex and Gender Information Value Date Recorded Sex Assigned at Not on file 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 Gender Identity Not on file Sexual Orientation Not on file documented as of this encounter Last Filed Vital Signs Vital Sign Reading Time Taken Comments Blood Pressure 126/62 01/12/2007 11:45 AM CDT Pulse 84 01/12/2007 11:45 AM CDT Temperature 36.9 C (98.4 F) 01/12/2007 11:45 AM CDT Respiratory Rate - - Oxygen Saturation - - Inhaled Oxygen Concentration - - Weight 56.2 kg (124 lb) 01/12/2007 11:45 AM CDT Height - - Body Mass [...] documented as of this encounter Care Teams Diamond Merchant Relationship Specialty Start Date End Date Elen Kong MD [address] [facility] [address] [place] [phone] PCP - General Internal Medicine 07/21/17 11/13/18 documented as of this encounter
--- OUTSIDE RECORDS SUMMARY | 2024-08-13 16:48 | XMS_ITS | Encounter Summary ---
Author Organization [facility] Address [address] [place] [address] Care Team Providers Care Fire Battalion Chief Name Role Phone Elen Kong MD Primary Care Provider [phone] Encounter Details Date Type Department Care Team (Late st Contact Info) Description 08/30/2006 Outpatient Historical [facility] Internal Medicine - [facility] [address] [address] [facility] [address] [place] [address] Mary Camacho MD [facility] [place] [address] Social History Tobacco Use Types Packs/Day Years Used Date Smoking Tobacco: Never Assessed Comments Unknown Sex and Gender Information Value Date Recorded Sex Assigned at Not on file 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
--- OUTSIDE RECORDS SUMMARY | 2024-08-13 16:48 | XMS_ITS | Encounter Summary ---
Author Organization [facility] Address [address] [place] [address] Care Team Providers Care Revenue Director Name Role Phone Elen Kong MD Primary Care Provider [phone] Encounter Details Date Type Department Care Team (Late st Contact Info) Description 07/21/2007 Outpatient Historical [facility] Internal Medicine - [facility] [address] [address] [facility] [address] [place] [address] Mary Camacho MD Social History Tobacco Use Types Packs/Day Years Used Date Smoking Tobacco: Never Assessed Comments Unknown Sex and Gender Information Value Date Recorded Sex Assigned at Not on file 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
--- OUTSIDE RECORDS SUMMARY | 2024-08-13 16:48 | XMS_ITS | Encounter Summary ---
Author Organization [facility] Address [address] [place] [address] Care Team Providers Care Motion Study Engineer Name Role Phone Elen Kong MD Primary Care Provider [phone] Encounter Details Date Type Department Care Team (Late st Contact Info) Description 03/24/2007 Outpatient Historical [facility] Internal Medicine - [facility] [address] [address] [facility] [address] [place] [address] Mary Camacho MD Social History Tobacco Use Types Packs/Day Years Used Date Smoking Tobacco: Never Assessed Comments Unknown Sex and Gender Information Value Date Recorded Sex Assigned at Not on file 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
--- OUTSIDE RECORDS SUMMARY | 2024-08-13 16:49 | XMS_ITS | Encounter Summary ---
Author Organization [facility] Address [address] [place] [address] Care Team Providers Care Animal Husbandry Worker Name Role Phone Elen Kong MD Primary Care Provider [phone] Encounter Details Date Type Department Care Team (Late st Contact Info) Description 07/09/1998 Outpatient Historical [facility] Internal Medicine - [facility] [address] [address] [facility] [address] [place] [address] Mary Camacho MD Social History Tobacco Use Types Packs/Day Years Used Date Smoking Tobacco: Never Assessed Comments Unknown Sex and Gender Information Value Date Recorded Sex Assigned at Not on file 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
--- OUTSIDE RECORDS SUMMARY | 2024-08-13 16:49 | XMS_ITS | Encounter Summary ---
Author Organization [facility] Address [address] [place] [address] Care Team Providers Care Refuse Driver Name Role Phone Elen Kong MD Primary Care Provider [phone] Encounter Details Date Type Department Care Team (Late st Contact Info) Description 10/11/2000 Outpatient Historical [facility] Internal Medicine - [facility] [address] [id number] [facility] [address] [place] [address] Mary Camacho MD Social History Tobacco Use Types Packs/Day Years Used Date Smoking Tobacco: Never Assessed Comments Unknown Sex and Gender Information Value Date Recorded Sex Assigned at Not on file 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
--- OUTSIDE RECORDS SUMMARY | 2024-08-13 16:49 | XMS_ITS | Encounter Summary ---
Author Organization [facility] Address [address] [place] [address] Care Team Providers Care Broommaker Name Role Phone Elen Kong MD Primary Care Provider [phone] Encounter Details Date Type Department Care Team (Late st Contact Info) Description 02/04/1998 Outpatient Historical [facility] Internal Medicine - 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
--- OUTSIDE RECORDS SUMMARY | 2024-08-13 16:49 | XMS_ITS | Encounter Summary ---
Author Organization [facility] Address [address] [place] [address] Care Team Providers Care Burglar Alarm Assembler Name Role Phone Elen Kong MD Primary Care Provider [phone] Encounter Details Date Type Department Care Team (Late st Contact Info) Description 03/05/1998 Outpatient Historical [facility] Internal [facility] - 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
--- OUTSIDE RECORDS SUMMARY | 2024-08-13 16:49 | XMS_ITS | Encounter Summary ---
Author Organization [facility] Address [address] [place] [address] Care Team Providers Care Golf Course Assistant Name Role Phone Elen Kong MD Primary Care Provider [phone] Encounter Details Date Type Department Care Team (Late st Contact Info) Description 06/18/1998 Outpatient Historical [facility] Internal Medicine - [facility] [address] [address] [facility] [address] [place] [address] Mary Camacho MD Social History Tobacco Use Types Packs/Day Years Used Date Smoking Tobacco: Never Assessed Comments Unknown Sex and Gender Information Value Date Recorded Sex Assigned at Not on file 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
--- OUTSIDE RECORDS SUMMARY | 2024-08-13 16:49 | XMS_ITS | Encounter Summary ---
Author Organization [facility] Address [address] [place] [address] Care Team Providers Care Nuclear Medicine Medical Director Name Role Phone Elen Kong MD Primary Care Provider Encounter Details Date Type Department Care Team (Late st Contact Info) Description 10/05/2001 Outpatient Historical [facility] Internal Medicine - [facility] [address] [address] [facility] [address] [place] [address] Mary Camacho MD Social History Tobacco Use Types Packs/Day Years Used Date Smoking Tobacco: Never Assessed Comments Unknown Sex and Gender Information Value Date Recorded Sex Assigned at Not on file 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
--- OUTSIDE RECORDS SUMMARY | 2024-08-13 16:49 | XMS_ITS | Encounter Summary ---
Author Organization [facility] Address [address] [place] [address] Care Team Providers Care Rocket Motor Mechanic Name Role Phone Elen Kong MD Primary Care Provider [phone] Encounter Details Date Type Department Care Team (Late st Contact Info) Description 01/21/1998 Outpatient Historical [facility] Internal Medicine - [facility] [address] [address] [facility] [address] [place] [address] Mary Camacho MD Social History Tobacco Use Types Packs/Day Years Used Date Smoking Tobacco: Never Assessed Comments Unknown Sex and Gender Information Value Date Recorded Sex Assigned at Not on file Legal Sex Female 4:05 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
--- OUTSIDE RECORDS SUMMARY | 2024-08-13 16:49 | XMS_ITS | Encounter Summary ---
Author Organization [facility] Address [address] [place] [address] Care Team Providers Care I&C Technician Name Role Phone Elen Kong MD Primary Care Provider [phone] Encounter Details Date Type Department Care Team (Late st Contact Info) Description 06/11/1998 Outpatient Historical [facility] Internal Medicine - [facility] [address] [address] [facility] [address] [place] [address] Mary Camacho MD Social History Tobacco Use Types Packs/Day Years Used Date Smoking Tobacco: Never Assessed Comments Unknown Sex and Gender Information Value Date Recorded Sex Assigned at Not on file 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
--- OUTSIDE RECORDS SUMMARY | 2024-08-13 16:49 | XMS_ITS | Encounter Summary ---
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
--- OUTSIDE RECORDS SUMMARY | 2024-08-13 16:49 | XMS_ITS | Encounter Summary ---
Author Organization [facility] Address [address] [place] [address] Care Team Providers Care Timers Inspector Name Role Phone Elen Kong MD Primary Care Provider [phone] Encounter Details Date Type Department Care Team (Latest Contact Info) Description 03/05/2002 Outpatient Historical [facility] PAT[facility] IN A BED Lev Hook MD [address] [id number] COMPLIC CERTIFIED NURSE MIDWIFE ORTHO DEVICE ([facility] (Primary Dx) Social History Tobacco Use Types Packs/Day Years Used Date Smoking Tobacco: Never Assessed Comments Unknown Sex and Gender Information Value Date Recorded Sex Assigned at Not on file 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 diff 07/08/2023 07/08/2023 07/08/2023 12:2 3 PM CDT C Diff 07/08/2023 07/08/2023 09/06/2023 1:16 AM CDT R/O C. diff 07/22/2024 07/22/2024 07/23/2024 7:46 AM CDT documented as of this encounter Care Teams Timers Inspector Relationship Specialty Start Date End Date Elen Kong MD [address] [place] [address] [address] [place] [address] PCP - General Internal Medicine 07/21/17 11/13/18 documented as of this encounter
--- OUTSIDE RECORDS SUMMARY | 2024-08-13 16:49 | XMS_ITS | Encounter Summary ---
Author Organization [facility] Address [address] [place] [address] Care Team Providers Care Certified Legal Investigator Name Role Phone Elen Kong MD Primary Care Provider [phone] Encounter Details Date Type Department Care Team (Late st Contact Info) Description 11/18/2004 Outpatient Historical [facility] Internal Medicine - 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 Gender Identity Not on file Sexual Orientation Not on file documented as of this encounter Last Filed Vital Signs Vital Sign Reading Time Taken Comments Blood Pressure 124/76 11/18/2004 2:45 PM CDT Pulse 80 11/18/2004 2:45 PM CDT Temperature 37.1 C (98.7 F) 11/18/2004 2:45 PM CDT Respiratory Rate - - Oxygen Saturation - - Inhaled Oxygen Concentration - - Weight 55.3 kg (122 lb) 11/18/2004 2:45 PM CDT Height - - Body Mass Index [...] documented as of this encounter Care Teams Certified Legal Investigator Relationship Specialty Start Date End Date Elen Kong MD [address] [facility] [address] [place] [address] PCP - General Internal Medicine 07/21/17 11/13/18 documented as of this encounter
--- OUTSIDE RECORDS SUMMARY | 2024-08-13 16:49 | XMS_ITS | Encounter Summary ---
Author Organization [facility] Address [address] [place] [address] Care Team Providers Care Verification Lead Name Role Phone Elen Kong MD Primary Care Provider [phone] Encounter Details Date Type Department Care Team (Late st Contact Info) Description 09/06/2001 Outpatient Historical [facility] Internal Medicine - [facility] [address] [address] [facility] [address] [place] [address] Mary Camacho MD Social History Tobacco Use Types Packs/Day Years Used Date Smoking Tobacco: Never Assessed Comments Unknown Sex and Gender Information Value Date Recorded Sex Assigned at Not on file 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
--- OUTSIDE RECORDS SUMMARY | 2024-08-13 16:49 | XMS_ITS | Encounter Summary ---
Author Organization [facility] Address [address] [place] [address] Care Team Providers Care Gastroenterology Professor Name Role Phone Elen Kong MD Primary Care Provider [phone] Encounter Details Date Type Department Care Team (Late st Contact Info) Description 01/14/1998 Outpatient Historical [facility] Internal Medicine - [facility] [address] [address] [facility] [address] [place] [address] Mary Camacho MD Social History Tobacco Use Types Packs/Day Years Used Date Smoking Tobacco: Never Assessed Comments Unknown Sex and Gender Information Value Date Recorded Sex Assigned at Not on file 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
--- OUTSIDE RECORDS SUMMARY | 2024-08-13 16:49 | XMS_ITS | Encounter Summary ---
Author Organization [facility] Address [address] [place] [address] Care Team Providers Care Paperback Machine Operator Name Role Phone Elen Kong MD Primary Care Provider [phone] Encounter Details Date Type Department Care Team (Late st Contact Info) Description 04/08/1998 Outpatient Historical [facility] Internal Medicine - [facility] [address] [address] [facility] [address] [place] [address] Mary Camacho MD Social History Tobacco Use Types Packs/Day Years Used Date Smoking Tobacco: Never Assessed Comments Unknown Sex and Gender Information Value Date Recorded Sex Assigned at Not on file 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
--- OUTSIDE RECORDS SUMMARY | 2024-08-13 16:49 | XMS_ITS | Encounter Summary ---
Author Organization [facility] Address [address] [place] [address] Care Team Providers Care Vp Cardiovascular Service Line Name Role Phone Elen Kong MD Primary Care Provider [phone] Encounter Details Date Type Department Care Team (Late st Contact Info) Description 11/22/1997 Outpatient Historical [facility] Internal Medicine - [facility] [address] [address] [facility] [address] [place] [address] Mary Camacho MD Social History Tobacco Use Types Packs/Day Years Used Date Smoking Tobacco: Never Assessed Comments Unknown Sex and Gender Information Value Date Recorded Sex Assigned at Not on file 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
--- OUTSIDE RECORDS SUMMARY | 2024-08-13 16:49 | XMS_ITS | Encounter Summary ---
Author Organization [facility] Address [address] [place] [address] Care Team Providers Care Purchasing Internship Name Role Phone Elen Kong MD Primary Care Provider [phone] Encounter Details Date Type Department Care Team (Late st Contact Info) Description 04/14/2001 Outpatient Historical [facility] Internal Medicine - [facility] [address] [address] [facility] [address] [place] [address] Mary Camacho MD Social History Tobacco Use Types Packs/Day Years Used Date Smoking Tobacco: Never Assessed Comments Unknown Sex and Gender Information Value Date Recorded Sex Assigned at Not on file 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
--- OUTSIDE RECORDS SUMMARY | 2024-08-13 16:49 | XMS_ITS | Encounter Summary ---
Author Organization [facility] Address [address] [place] [address] Care Team Providers Care Disaster Recovery Manager Name Role Phone Elen Kong MD Primary Care Provider [phone] Encounter Details Date Type Department Care Team (Late st Contact Info) Description 11/29/1997 Outpatient Historical [facility] Internal Medicine - [facility] [address] [address] [facility] [address] [place] [address] Mary Camacho MD Social History Tobacco Use Types Packs/Day Years Used Date Smoking Tobacco: Never Assessed Comments Unknown Sex and Gender Information Value Date Recorded Sex Assigned at Not on file 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 [address] [place] [address] PCP - General Internal Medicine 07/21/17 11/13/18 documented as of this encounter
--- OUTSIDE RECORDS SUMMARY | 2024-08-13 16:49 | XMS_ITS | Encounter Summary ---
Author Organization [facility] Address [address] [place] [address] Care Team Providers Care Screw Machine Adjuster Automatic Name Role Phone Elen Kong MD Primary Care Provider [phone] Encounter Details Date Type Department Care Team (Late st Contact Info) Description 07/01/1998 Outpatient Historical [facility] Internal Medicine - [facility] [address] [address] [facility] [address] [place] [address] Mary Camacho MD Social History Tobacco Use Types Packs/Day Years Used Date Smoking Tobacco: Never Assessed Comments Unknown Sex and Gender Information Value Date Recorded Sex Assigned at Not on file 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
--- OUTSIDE RECORDS SUMMARY | 2024-08-13 16:49 | XMS_ITS | Encounter Summary ---
Author Organization [facility] Address [address] [place] [address] Care Team Providers Care Sammying Machine Operator Name Role Phone Elen Kong MD Primary Care Provider [phone] Encounter Details Date Type Department Care Team (Late st Contact Info) Description 11/08/2000 Outpatient Historical [facility] Internal Medicine - [facility] [address] [address] [facility] [address] [place] [address] Mary Camacho MD Social History Tobacco Use Types Packs/Day Years Used Date Smoking Tobacco: Never Assessed Comments Unknown Sex and Gender Information Value Date Recorded Sex Assigned at Not on file 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
--- OUTSIDE RECORDS SUMMARY | 2024-08-13 16:49 | XMS_ITS | Clinical Summary ---
Author Organization [facility] Address [address] [place] [address] Care Team Providers Care Rn Or Lpn Name Role Phone Unknown, Provider Unavailable Unavailable Bryn Cervantes MD Primary Care Provider [phone] Source Comments [facility],non-owned Affiliates and Associated Physician Practices is amultiple site organization consisting of ambulatory clinics and hospital sitesin [place], [place], [place] and [place]. This disclosure is being madepursuant to the Care Everywhere program and may not contain all information available regarding this patient. Last updated 18.[facility] Allergies Active Allergy Reactions Criticality Noted Date Comments Amoxicillin Itching 02/21/2023 Amphetamine-Dextroamphetam ine 03/26/2015 Prescription drug abuse, medical non-compliance Bupropion Seizures High 10/12/20132010, 2014 Tolerating SR 150 mg dose per psych 2016. Dextromethorphan Hbr Other 09/30/2006 Escitalopram Itching 07/09/2020 Note: Itching Gabapentin Swelling Medium 06/30/2022 Levofloxacin Angioedema High 08/23/2016 Levofloxacin 08/28/2013 [place] Nausea and/or Vomiting Low 04/17/2014 Codeine 03/26/2015 Prescription drug abuse, medical non-compliance Phenylephrine Unknown 09/30/2006 Modafinil 03/26/2015 Drug abuse, has been known to abuse this med Fluoxetine Itching 07/10/2024 Medications * This document contains information received from the source organization and may not represent a complete record from that organization. * Be aware that medications may not be up to date on this document. Alwaysverify current medications with the patient. Multiple Vitamin (Multi-Vitamin) TABSIndications :Nutritional Support Take 1 (one) tablet by mouth once daily 12/29/2022 Active naltrexone (Vivitrol) injectionIndica tions:Alcohol Use Disorder Inject 380 (three hundred eighty) mg into muscle every 28 days Next dose due on 08/08/2024 Reasons: Abuse or Misuse of Alcohol 1 Each 1 08/08/2024 Active risperiDONE (RisperDAL) 3 MG tabletIndicatio ns:Manic Phase of Bipolar Mood Disorder Take 1 (one) tablet by mouth at bedtime Reasons: Manic Phase of Manic-Depres julián 30 tablet 1 07/12/2024 Active Active Problems Problem Noted Date Diagnosed Date Bipolar I disorder, most rec ent episode manic, severe with psychotic features 07/07/2024 Abscess of left thigh 01/17/2021 Depressive disorder 01/14/2021 Severe recurrent major depre ssion without psychotic features 12/20/2020 Major depressive disorder, recurrent 11/04/2020 Alcohol-induced acute pancreatitis 08/13/2020 Assessment & Plan (08/15/2020 6:33 AM CDT): Patient presented with history of binge drinking [...] zofran PRN - Tylenol/Naproxyn with Morphine breakthrough Assessment & Plan (08/14/2020 10:17 AM CDT): Lipase severely elevated to 896, patient endorses abdominal pain. N/V and abdominal pain likely combined effect of ketoacidosis and pancreatitis. - IVF - PRN morphine, will transition to PO medication Hypokalemia 04/14/2020 Alcohol-induced acute pancreatitis 04/14/2020 Acute alcoholic intoxication with complication 1 06/15/2019 Depression with anxiety 10/10/2019 Assessment & Plan (01/17/2020 6:36 AM CDT): Patient with several diagnoses on problem list including depression, anxiety, and bipolar I disorder. As her psychiatric history is not clear she was not being managed on medications at the time of admission. - Discontinue Lexapro - Discontinue Mirtazapine - Discontinue gabapentin - Follow up as outpatient Assessment & Plan (01/16/2020 5:30 PM CDT): Patient with several diagnoses on problem list including depression, anxiety, and bipolar I disorder. As her psychiatric history is not clear she was not being managed on medications at the time of admission. - Discontinue Lexapro - Discontinue Mirtazapine - Discontinue gabapentin - Follow up as outpatient Assessment & Plan (01/15/2020 6:09 AM CDT): Patient with several diagnoses on problem list including depression, anxiety, and bipolar I disorder. As her psychiatric history is not clear she was not being managed on medications at the time of admission. - Lexapro 5 mg daily - Mirtazapine 30 mg qHS, increased from 15 mg qHS yesterday - Continue gabapentin 600 mg TID - Follow up as outpatient Assessment & Plan (01/14/2020 12:58 PM CDT): Patient with several diagnoses on problem list including depression, anxiety, and bipolar I disorder. As her psychiatric history is not clear she was not being managed on medications at the time of admission. - Lexapro 5 mg daily - Mirtazapine 30 mg qHS, increased from 15 mg qHS yesterday - Continue gabapentin 600 mg TID - Follow up as outpatient Assessment & Plan (01/13/2020 3:39 PM CDT): Patient with several diagnoses on problem list including depression, anxiety, and bipolar I disorder. As her psychiatric history is not clear she was not being managed on medications at the time of admission. - Lexapro re-started as patient states it was beneficial for her in the past - Increase gabapentin to 600 mg TID - Follow up as outpatient Assessment & Plan (01/12/2020 4:45 PM CDT): Patient with several diagnoses on problem list including depression, anxiety, and bipolar I disorder. As her psychiatric history is not clear she was not being managed on medications at the time of admission. - Lexapro re-started as patient states it was beneficial for her in the past. - Follow up as outpatient Assessment & Plan (01/11/2020 5:09 PM CDT): Patient with several diagnoses on problem list including depression, anxiety, and bipolar I disorder. She states that she is not taking any medication but this has not been confirmed with [facility] records - No outpatient psych meds per [facility] chart and providers - Follow up as outpatient Assessment & Plan (01/10/2020 1:32 PM CDT): Patient with several diagnoses on problem list including depression, anxiety, and bipolar I disorder. She states that she is not taking any medication but this has not been confirmed with [facility] records - Check [facility] med list - Talk with Dr. Lombardi about BH eval at discharge - Discuss office follow up with Dr. Cervantes for after discharge and initiation of Vivitrol Acute stress reaction 04/22/2019 Substance induced mood disorder 04/22/2019 Laceration of left hand without foreign body Tinnitus of both ears 12/14/2018 Alcohol-induced mood disorder 09/02/2018 Alcohol use disorder, severe, dependence 019 Assessment & Plan (01/17/2020 6:36 AM CDT): - Librium 25 mg q24h - CIWA protocol - Ativan 2 mg for scores >8 - Ativan 4 mg for seizures - Regular diet - Folate, MV, Thiamine supplementation - Consults to business law professor, social human services assistants, and nutrition - PT/OT to prevent deconditioning while inpatient - Fall/Seizure/Aspiration precautions - Zofran and Reglan PRN - Follow up with Dr. Cervantes and Dr. Melissa at discharge - Appointment with Dr. Melissa for 10/5 at 10:30 am - Interested in [facility] after discharge - Also interested in discharging with [facility] Assessment & Plan (01/16/2020 5:29 PM CDT): - Librium 25 mg q24h - CIGA protocol - Ativan 2 mg for scores >8 - Ativan 4 mg for seizures - Regular diet - Folate, MV, Thiamine supplementation - Consults to business law professor, social human services assistants, and nutrition - PT/OT to prevent deconditioning while inpatient - Fall/Seizure/Aspiration precautions - Zofran and Reglan PRN - Follow up with Dr. Cervantes and Dr. Melissa at discharge - Appointment with Dr. Melissa for 01/20 at 10:30 am - Interested in [facility] after discharge - Also interested in discharging with [facility] Assessment & Plan (01/15/2020 11:30 AM CDT): - Librium 25 mg q12h - CIGA protocol - Ativan 2 mg for scores >8 - Ativan 4 mg for seizures - Regular diet - Folate, MV, Thiamine supplementation - Consults to business law professor, social human services assistants, and nutrition - PT/OT to prevent deconditioning while inpatient - Fall/Seizure/Aspiration precautions - Zofran and Reglan PRN - Follow up with Dr. Cervantes and Dr. Melissa at discharge - Interested in [facility] after discharge - Also interested in discharging with [facility] Assessment & Plan (01/14/2020 12:56 PM CDT): - Librium 25 mg q8h -- no changes today - CIGA protocol - Ativan 2 mg for scores >8 - Ativan 4 mg for seizures - Discontinue telemetry - Regular diet - Folate, MV, Thiamine supplementation - Consults to business law professor, social human services assistants, and nutrition - PT/OT to prevent deconditioning while inpatient - Fall/Seizure/Aspiration precautions - Zofran and Reglan PRN - Follow up with Dr. Cervantes and Dr. Melissa at discharge - Interested in [facility] after discharge - Also interested in discharging with [facility] Assessment & Plan (01/13/2020 3:38 PM CDT): - Librium 25 mg q8h - CIWA protocol - Ativan 2 mg for scores >8 - Ativan 4 mg for seizures - Telemetry - Regular diet - Folate, MV, Thiamine supplementation - Consults to business law professor, social human services assistants, and nutrition - PT/OT to prevent deconditioning while inpatient - Fall/Seizure/Aspiration precautions - Zofran and Reglan PRN - Follow up with Dr. Cervantes and Dr. Melissa at discharge - Interested in [facility] after discharge - Also interested in discharging with [facility] Assessment & Plan (01/12/2020 4:42 PM CDT): - Librium 25 mg q6h -- no changes today - CIWA protocol - Ativan 2 mg for scores >8 - Ativan 4 mg for seizures - Telemetry - Regular diet - Folate, MV, Thiamine supplementation - Consults to business law professor, social human services assistants, and nutrition - PT/OT to prevent deconditioning while inpatient - Fall/Seizure/Aspiration precautions - Zofran and Reglan PRN - Follow up with Dr. Cervantes and Dr. Melissa at discharge Assessment & Plan (01/11/2020 5:08 PM CDT): - Librium 25 mg q6h -- no changes today - CIWA protocol - Ativan 2 mg for scores >8 - Ativan 4 mg for seizures - Telemetry - Regular diet - Folate, MV, Thiamine supplementation - Consults to business law professor, social human services assistants, and nutrition - PT/OT to prevent deconditioning while inpatient - Fall/Seizure/Aspiration precautions - Zofran and Reglan PRN - Follow up with Dr. Cervantes and Dr. Melissa at discharge Assessment & Plan (01/10/2020 1:23 PM CDT): - Librium 25 mg q6h - CIWA protocol - Ativan 2 mg for scores >8 - Ativan 4 mg for seizures - Telemetry - Regular diet - Folate, MV, Thiamine supplementation - Consults to business law professor, social human services assistants, and nutrition - PT/OT to prevent deconditioning while inpatient - Fall/Seizure/Aspiration precautions - Zofran and Reglan PRN Sensation of fullness in both ears 08/03/2017 Dysfunction of both eustachian tubes 08/03/2017 Bipolar disorder with current episode depressed 08/23/2016 History of drug overdose 12/01/2015 Overview (08/03/2017): Overview: Last event 06/2015 Prior events as well. ETOH abuse 03/26/2015 Assessment & Plan (08/15/2020 6:34 AM CDT): Patient with many year history of alcohol abuse, frequent inpatient admissions for detox or complications of alcohol use. Per PCP avoid librium or any other meds with potential for abuse. Last drink was immediately prior to arrival in ED. - CIWA protocol - patient prefers not to address substance abuse during this admission - supplement thiamine, folate Assessment & Plan (08/14/2020 6:16 AM CDT): Patient with many year history of alcohol abuse, frequent inpatient admissions for detox or complications of alcohol use. Per PCP avoid librium or any other meds with potential for abuse. Last drink was immediately prior to arrival in ED. - CIWA protocol - patient prefers not to address substance abuse during this admission - supplement thiamine, folate Stimulant abuse 03/26/2015 Medical non-compliance 03/26/2015 Allergic rhinitis 06/03/2014 Conductive hearing loss, bilateral 04/17/2014 Bipolar disorder 12/17/2013 Assessment & Plan (08/15/2020 6:33 AM CDT): Per PCP and outpatient psychiatrist patient not to be started on new psych meds while inpatient. History of misuse of prescribed psych meds. Regimen per psych includes doxepin, mirtazapine, wellbutrin, and prazosin. - continue home doxepin and mirtazapine if patient can tolerate oral meds - hold wellbutrin and prazosin as not taking outpatient Assessment & Plan (08/13/2020 2:21 AM CDT): Per PCP and outpatient psychiatrist patient not to be started on new psych meds while inpatient. History of misuse of prescribed psych meds. Regimen per psych includes doxepin, mirtazapine, wellbutrin, and prazosin. - continue home doxepin and mirtazapine if patient can tolerate oral meds - hold wellbutrin and prazosin as not taking outpatient Substance abuse 06/22/2013 Mixed bipolar I disorder 06/07/2013 Tobacco abuse 06/07/2013 Seizure grand mal 01/24/2011 Overview (08/03/2017): Overview: Occurred when on zinc cold med, herbal diet pills, and wellbutrin. Recurrence 09/2013, on wellbutrin and under stress 09/2015: tolerating Wellbutrin 150 mg SR dose daily Drug abuse in remission 01/09/2009 Overview (08/03/2017): Overview: Benzodiazepine. Now under daily surveillance with random urine sampling. Resolved Problems Problem Noted Date Diagnosed Date Resolved Date Alcoholic ketoacidosis 08/13/202008/15 Assessment & Plan (08/15/2020 6:31 AM CDT): Patient presents with history of binge drinking interrupted by onset of severe and intractable vomiting. Initial labs in the ED confirmed acidosis, with HCO3 critically low at 8, glucose elevated to 288, betahydroxybuterate >6, and pH 7.23. Patient underwent fluid resuscitation in ED and started on bicarb drip. Great improvement in acidosis and electrolytes after 24 hours of resuscitation. - wean IVF today - Full liquid diet, may advance as tolerated - electrolyte replacement as necessary - zofran PRN Assessment & Plan (08/14/2020 10:16 AM CDT): Patient presents with history of binge drinking interrupted by onset of severe and intractable vomiting. Initial labs in the ED confirmed acidosis, with HCO3 critically low at 8, glucose elevated to 288, betahydroxybuterate >6, and pH 7.23. Patient underwent fluid resuscitation in ED and started on bicarb drip. Great improvement in acidosis and electrolytes after 24 hours of resuscitation. - wean IVF today - Full liquid diet, may advance as tolerated - electrolyte replacement as necessary - zofran PRN Alcoholic ketoacidosis 01/09/202001/11 Assessment & Plan (01/13/2020 6:49 AM CDT): - s/p LR bolus in the ED - d/c fluids - Electrolytes stable -- replete as needed - Daily RFP and Mag Assessment & Plan (01/11/2020 5:08 PM CDT): - s/p LR bolus in the ED - d/c fluids - Electrolytes stable -- replete as needed - Daily RFP and Mag Assessment & Plan (01/10/2020 1:23 PM CDT): - s/p LR bolus in the ED - D5 NS @ 100 mL/hr - CMP/Mag/Phos pending -- will access acid/base status when labs are drawn - Daily RFP and Mag - Electrolyte repletion as needed Lactic acid acidosis 01/09/2020 020 Assessment & Plan (01/13/2020 6:49 AM CDT): Patient was a markedly elevated lactate in the ED of >6, more than would be expected by just alcohol intake. WBC was also elevated. Blood cultures were drawn and Zosyn was started. However, lactate decreased quickly and she has been hemodynamically stable. She does not appear septic that this time - a/p Zosyn - Follow up blood cultures -- NGTD Assessment & Plan (01/11/2020 5:09 PM CDT): Patient was a markedly elevated lactate in the ED of >6, more than would be expected by just alcohol intake. WBC was also elevated. Blood cultures were drawn and Zosyn was started. However, lactate decreased quickly and she has been hemodynamically stable. She does not appear septic that this time - a/p Zosyn - Follow up blood cultures -- NGTD Assessment & Plan (01/10/2020 1:30 PM CDT): Patient was a markedly elevated lactate in the ED of >6, more than would be expected by just alcohol intake. WBC was also elevated. Blood cultures were drawn and Zosyn was started. However, lactate decreased quickly and she has been hemodynamically stable. She does not appear septic that this time - D/c Zosyn - Follow up blood cultures - Follow up labs to make sure there are no signs of metabolic acidosis Facial pain 05/25/2019 01/09/2020 ADHD (attention deficit hype ractivity disorder) 08/23/2016 07/09/2024 Depression 03/26/2015 01/09/2020 Ear fullness 04/17/2014 01/09/2020 Anorexia 09/16/2004 01/17/2020 Encounters * This document contains information received from the source organization and may not represent a complete record from that organization. Date Type Department Care Team Description 07/07/2024 Travel from Last 3 Months Immunizations Immunization Administration Dates Next Due INFLUENZA VACCINE, TRIV. (AF LURIA, FLUZONE TRIVALENT; 6MO+) (IIV3) 02/16/2013 DTaP VACCINE IM (6wk-6yrs) 01/23/2006 INFLUENZA A [id number] VACCINE 01/14/2014 INFLUENZA [id number], HISTORIC VACCINE 01/14/2014 INFLUENZA VACCINE 02/10/2021,01/22/2019,02/17/20 13 INFLUENZA VACCINE, QUADR. (F LUZONE; FLULAVAL; FLUARIX; AFLURIA QUADRIVALENT; 6MO+), 0.5 ML (IIV4) 05/17/2023 TD (AGE 7-ADULT) 09/17/1995 TDAP (7yrs+) 08/22/2019 Td (Adult), 2 Lf Tetanus Tox oid, Adsorbed, Pf 04/18/2005 Family History Medical History Relation Name Comments Cancer Father Relation Name Status Comments Father Social History Tobacco Use Types Packs/Day Years Used Date Smoking Tobacco: Former Cigarettes 1 11.2 1 - 04/18/2023 Smokeless Tobacco: Never Tobacco Cessation:Counseling Given: Yes Alcohol Use Standard Drinks/Week Comments Not Currently 15 (1 standard drink = 0.6 oz pure alcohol) Pt reports about 1 liter of ETOH every 2 days AUDIT-C Answer Date Recorded Q1: How often do you have a drink containing alcohol? Never 07/08/2024 Q2: How many drinks containi ng alcohol do you have on a typical day when you are drinking? Patient does not drink Q3: How often do you have si x or more drinks on one occasion? Never 07/08/2024 Overall Financial Resource Strain (CARDIA) Answe r Date Recorded How hard is it for you to pa y for the very basics like food, housing, medical care, and heating? Very hard 07/08/2024 [facility] [place] [facility] - Occupational Stress Questionnaire Answer Date Recorded Do you feel stress - tense, restless, nervous, or anxious, or unable to sleep at night because your mind is troubled all the time - these days? Very much 07/08/2024 Hunger Vital Sign Answer Date Recorded Within the past 12 months, y ou worried that your food would run out before you got the money to buy more. Often true 07/09/19 25 Within the past 12 months, t he food you bought just didn't last and you didn't have money to get more. Often true 07/08/2024 PRAPARE - Transportation Answer Date Re corded In the past 12 months, has l ack of transportation kept you from medical appointments or from getting medications? Yes 06/17 In the past 12 months, has l ack of transportation kept you from meetings, work, or from getting things needed for daily living? Yes 07/08/2024 Housing Stability Vital Sign Answer Naren e Recorded In the last 12 months, was t here a time when you were not able to pay the mortgage or rent on time? Yes 07/08/2024 In the past 12 months, how m any times have you moved where you were living? 12 07/08/2024 At any time in the past 12 m [facility], were you homeless or living in a nursing home (including now)? 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 on file Not on file Not o n file Last Filed Vital Signs Vital Sign Reading Time Taken Comments Blood Pressure 145/92 07/12/2024 8:22 AM CDT Pulse 108 07/12/2024 8:22 AM CDT Temperature 37 C (98.6 F) 07/12/2024 8:22 AM CDT Respiratory Rate 17 07/12/2024 8:22 AM CDT Oxygen Saturation 99% 07/12/2024 8:22 AM CDT Inhaled Oxygen Concentration - - Weight 53.3 kg (117 lb 6.4 oz) 07/07/2024 9:01 P M CDT Height 170.2 cm (5' 7 ) 07/07/2024 9:01 PM CDT Body Mass Index 18.39 07/07/2024 9:01 PM CDT Plan of Treatment Health Maintenance Due Date Last Done Comments MAMMOGRAM 1980 HEPATITIS B VACCINE (1 of 3 - 19+ 3-dose series) 1999 COVID-19 VACCINE ( season) 2023 05/17/2023, 09/01/2020 INFLUENZA VACCINE (Season Ended) 2024 05/17/2023, 02/10/2021, 12/25/2019, Additional history exists PAP SMEAR 03/06/2027 03/06/2024 LIPID TESTING 07/10/2029 07/10/2024, 03/19, 07/26/2021, Additional history exists DTAP/TDAP/TD VACCINES (5 - Td or Tdap) 08/21/2029 08/22/2019, 01/23/2006, 04/18/2005, Additional history exists ZOSTER VACCINE (1 of 2) 2030 HIV SCREENING Completed 04/30/2023, 12/18, 10/12/2019 HEPATITIS C SCREENING Completed 04/25/2024, 024 HIB VACCINE Aged Out No longer eligi ble based on patient's age to complete this topic HPV VACCINE Aged Out No longer eligi ble based on patient's age to complete this topic MENINGOCOCCAL (Group B) VACCINE SHARED DECISION-MAKING Aged Out No longer eligible based on patient's age to complete this topic MENINGOCOCCAL GROUPS A/C/Y/W VACCINE Aged Out No longer eligible based on patient's age to complete this topic PNEUMOCOCCAL VACCINE Aged Out No long er eligible based on patient's age to complete this topic Procedures Procedure Name Priority Date/Time Associated Diagnosis Comments T4 FREE DIRECT REFLEXED Routine 07/10/2024 8:34 AM CDT SYPHILIS ANTIBODY CASCADING REFLEX AM Draw 07/10/2024 8:34 AM CDT TSH REFLEX FREE T4 AM Draw 07/10/2024 8: 34 AM CDT LIPID PROFILE AM Draw 07/10/2024 8:34 AM CDT HEMOGLOBIN A1C AM Draw 07/10/2024 8:34 AM CDT COMPREHENSIVE METABOLIC PANEL AM Draw 07/10/2024 8:34 AM CDT CBC W AUTO DIFFERENTIAL AM Draw 07/10/2024 8:34 AM CDT HCG URINE QUALITATIVE Routine 07/09/2024 6:43 PM CDT URINALYSIS REFLEX TO MICROSCOPIC NO CULTURE Routine 07/09/2024 6:43 PM CDT URINE DRUG SCREEN IMMUNOASSAY Routine 07/09/2024 6:43 PM CDT HIV-1 HIV-2 ANTIBODY + HIV P24 AG PANEL STAT 01/13/2021 11:16 PM CDT from Last 3 Months or Most Recently Relevant to Health Maintenance Results * SYPHILIS ANTIBODY CASCADING REFLEX (07/10/2024 8:34 AM CDT) Treponema pallidum Antibody Non Reactive Non Reactive 07/10/2024 9:28 AM CDT [facility] Comment: No Laboratory evidence of syphilis infection. Note: Circulating antibodies may be low or undetectable in early infection. If recent exposure is suspected, re-draw sample in 2-4 weeks and repeat testing. Blood BLOOD SPECIMEN / Unknown Venipuncture / Unknown 07/10/2024 8:34 AM CDT 07/10/2024 8:38 AM CDT [facility] - SEROLOGY ORDERABLES Final Result [facility] [address] [place] [address] * T4 FREE DIRECT REFLEXED (07/10/2024 8:34 AM CDT) T4 Free 1.01 0.70 - 1.50 ng/dL 07/10/2024 9:57 AM CDT [facility] Blood BLOOD SPECIMEN / Unknown Venipuncture / Unknown 07/10/2024 8:34 AM CDT 07/10/2024 8:38 AM CDT [facility] - CHEMISTRY ORDERABLE S Final Result Performing Organization Address [facility]/ZIP Co de Phone Number [facility] [id number] [place] [id number] * (ABNORMAL) TSH REFLEX FREE T4 (07/10/2024 8:34 AM CDT) TSH 0.227(L) 0.350 - 4.940 uIU/mL 07/10/2024 9:27 AM CDT [facility] Blood BLOOD SPECIMEN / Unknown Venipuncture / Unknown 07/10/2024 8:34 AM CDT 07/10/2024 8:38 AM CDT [facility] Final Result Performing Organization Address [facility] Co de Phone Number [facility] [address] [place] [id number] * HEMOGLOBIN A1C (07/10/2024 8:34 AM CDT) Hemoglobin A1c 5.1 <5.7 % 07/10/2024 9:00 AM CDT [facility] Estimated Average Glucose 100 mg/dL 07/10/2024 9:00 AM CDT [facility] Blood BLOOD SPECIMEN / Unknown Venipuncture / Unknown 07/10/2024 8:34 AM CDT 07/10/2024 8:38 AM CDT Narrative [facility] - 07/10/2024 9:00 AM CDT HbA1c Interpretation: Normal: < 5.7% Pre-diabetes: 5.7-6.4% Diabetes: Equal to or greater than 6.5% Test results diagnostic of diabetes should be repeated for confirmation. Treatment target values recommended by ADA and other clinical organizations should be used to evaluate metabolic control in patients. This test should not replace glucose testing for patients with Type 1 diabetes, pediatric patients, or women. Falsely low HbA1c results may be observed in patients with clinical conditions that shorten erythrocyte life span or decrease mean erythrocyte age such as the presence of unstable hemoglobin variants, elevated hemoglobin F level or other causes of hemolytic anemia. HbA1c may not accurately reflect glycemic control when clinical conditions that affect erythrocyte survival are present. Severe Iron deficiency anemia may yield falsely high results. Hemoglobin A1c assay should not be used to diagnose or monitor diabetes in patients with malignancy, recent blood transfusion, chronic kidney or liver disease. This method may yield falsely low results when hemoglobin (HbF) exceeds 5% in the specimen. The Seguricelnity assay for the measurement of HbA1c is a National Glycohemoglobin Standardization Program (NGSP) certified method. Uzair Soliz APRN-OBSTETRIC ASSISTANT LAB - CHEMISTRY ORDERABLE S Final Result [facility] [address] [place] [address] * CBC W AUTO DIFFERENTIAL (07/10/2024 8:34 AM CDT) WBC 5.0 4.0 - 10.7 x10E9/L 07/10/2024 8:42 AM CDT [facility] RBC Count 4.51 3.90 - 5.20 x10E12/L 07/10/2024 8:42 AM CDT [facility] Hemoglobin 13.5 11.9 - 15.8 g/dL 07/10/2024 8:42 AM CDT [facility] Hematocrit 40.3 34.8 - 46.1 % 07/10/2024 8:42 AM CDT [facility] MCV 89.4 80.0 - 98.0 fL 07/10/2024 8:42 AM CDT [facility] MCH 29.9 26.7 - 33.6 pg 07/10/2024 8:42 AM CDT [facility] MCHC 33.5 31.7 - 36.3 g/dL 07/10/2024 8:42 AM CDT [facility] RDW-CV 13.3 11.3 - 14.8 % 07/10/2024 8:42 AM CDT [facility] Platelet Count 262 150 - 420 x10E9/L 07/10/2024 8:42 AM CDT [facility] MPV 9.4 7.8 - 11.4 fL 07/10/2024 8:42 AM CDT [facility] Neutrophil % 47.2 41.0 - 74.0 % 07/10/2024 8:42 AM CDT [facility] Lymphocyte % 38.6 17.0 - 47.0 % 07/10/2024 8:42 AM CDT [facility] Monocyte % 9.8 3.0 - 11.0 % 07/10/2024 8:42 AM CDT [facility] Eosinophil % 3.4 0.0 - 7.0 % 07/10/2024 8:42 AM CDT [facility] Basophil % 1.0 0.0 - 1.6 % 07/10/2024 8:42 AM CDT [facility] Immature Granulocytes % 0.0 0.0 - 1.0 % 07/10/2024 8:42 AM CDT [facility] Neutrophil Absolute 2.35 1.60 - 7.50 x10E9/L 07/10/2024 8:42 AM CDT [facility] Lymphocyte Absolute 1.92 1.00 - 4.40 x10E9/L 07/10/2024 8:42 AM CDT [facility] Monocyte Absolute 0.49 0.15 - 1.00 x10E9/L 07/10/2024 8:42 AM CDT [facility] Eosinophil Absolute 0.17 0.00 - 0.60 x10E9/L 07/10/2024 8:42 AM CDT [facility] Basophil Absolute 0.05 0.00 - 0.13 x10E9/L 07/10/2024 8:42 AM CDT [facility] Blood BLOOD SPECIMEN / Unknown Venipuncture / Unknown 07/10/2024 8:34 AM CDT 07/10/2024 8:38 AM CDT us Uzair Soliz SENIOR PROGRAMMER-OBSTETRIC ASSISTANT LAB - HEMATOLOGY ORDERABL ES Final Result [facility] [address] [place] [address] * (ABNORMAL) COMPREHENSIVE METABOLIC PANEL (07/10/2024 8:34 AM CDT) Glucose 124(H) 70 - 99 mg/dL 07/10/2024 9:11 AM CDT [facility] Sodium 139 136 - 145 mmol/L 07/10/2024 9:11 AM CDT [facility] Potassium 3.6 3.5 - 5.1 mmol/L 07/10/2024 9:11 AM CDT [facility] Chloride 106 98 - 107 mmol/L 07/10/2024 9:11 AM CDT [facility] CO2 30(H) 22 - 29 mmol/L 07/10/2024 9:11 AM CDT [facility] Calcium 8.8 8.4 - 10.4 mg/dL 07/10/2024 9:11 AM CDT [facility] Anion Gap 3(L) 6 - 16 mmol/L 07/10/2024 9:11 AM CDT [facility] BUN 8 5.3 - 18.7 mg/dL 07/10/2024 9:11 AM CDT [facility] Creatinine 0.70 0.57 - 1.11 mg/dL 07/10/2024 9:11 AM CDT [facility] Alkaline Phosphatase 105 40 - 150 U/L 07/10/2024 9:11 AM CDT [facility] ALT 19 6 - 57 U/L 07/10/2024 9:11 AM CDT [facility] AST 35 10 - 48 U/L 07/10/2024 9:11 AM T [facility] Protein Total 6.9 6.4 - 8.3 gm/dL 07/10/2024 9:11 AM CDT [facility] Albumin 3.7 3.4 - 5.0 gm/dL 07/10/2024 9:11 AM CDT [facility] Bilirubin Total 0.5 0.2 - 1.2 mg/dL 07/10/2024 9:11 AM CDT [facility] eGFR by CKD-EPI >90 >=90 mL/min/1.7 3 m2 07/10/2024 9:11 AM CDT [facility] Blood BLOOD SPECIMEN / Unknown Venipuncture / Unknown 07/10/2024 8:34 AM CDT 07/10/2024 8:38 AM CDT Uzair Soliz [facility] - CHEMISTRY ORDERABLE S Final Result Performing Organization Address [facility] Co de Phone Number [facility] [address] [place], [place] [id number] * LIPID PROFILE (07/10/2024 8:34 AM CDT) Cholesterol 170 <200 mg/dL 07/10/2024 9:11 AM CDT [facility] Triglycerides 88 <150 mg/dL 07/10/2024 9:11 AM CDT [facility] HDL Cholesterol 57 >40 mg/dL 9:11 AM CDT [facility] LDL Calculated 95 <130 mg/dL 07/10/2024 9:11 AM CDT [facility] VLDL Calculated 18 <=30 mg/dL 9:11 AM CDT [facility] Chol HDL Ratio 3.0 <4.5 07/10/2024 9:11 AM CDT [facility] LDL/HDL Ratio 1.7 <5.0 07/10/2024 9:11 AM CDT [facility] Blood BLOOD SPECIMEN / Unknown Venipuncture / Unknown 07/10/2024 8:34 AM CDT 07/10/2024 8:38 AM CDT us Uzair Soliz [facility] - CHEMISTRY ORDERABLE S Final Result Performing Organization Address [facility] de Phone Number [facility] [address] [place] [address] * (ABNORMAL) URINALYSIS REFLEX TO MICROSCOPIC NO CULTURE (07/09/2024 6:43 PM CDT) Color UA Colorless(A ) Yellow, Straw 07/09/2024 7:05 PM CDT [facility] Clarity UA Clear Clear 07/09/2024 7:05 PM CDT [facility] Glucose UA Normal Normal 07/09/2024 7:05 PM CDT [facility] Bilirubin UA Negative Negative 07/09/2024 7:05 PM CDT [facility] Ketone UA Negative Negative 07/09/2024 7:05 PM CDT [facility] Specific [place] UA <1.005(L) 1.005 - 1.030 07/09/2024 7:05 PM CDT [facility] Blood UA Negative Negative 07/09/2024 7:05 PM CDT [facility] pH UA 7.0 5.0 - 9.0 pH 07/09/2024 7:05 PM CDT [facility] Protein UA Negative Negative 07/09/2024 7:05 PM CDT [facility] Urobilinogen UA Normal Normal mg/dL 07/09/2024 7:05 PM CDT [facility] Nitrite UA Negative Negative 07/09/2024 7:05 PM CDT [facility] Leukocyte UA Negative Negative 07/09/2024 7:05 PM CDT [facility] Urine URINE SPECIMEN OBTAINED BY CLEAN CATCH PROCEDURE / Unknown Collection / Unknown 07/09/2024 6:43 PM CDT 07/09/2024 6:53 PM CDT Narrative [facility] - 07/09/2024 7:05 PM CDT us Uzair Soliz SENIOR PROGRAMMER-OBSTETRIC ASSISTANT LAB - URINALYSIS ORDERABL ES Final Result Performing Organization Address [facility] Co de Phone Number [facility] [address] [place] [address] * HCG URINE QUALITATIVE (07/09/2024 6:43 PM CDT) Pathologist [facility] hCG Qualitative Urine Negative Negative 07/09/2024 7:06 PM CDT [facility] Urine URINE / Unknown Collection / Unknown 07/09/2024 6:43 PM CDT 07/09/2024 6:53 PM CDT Narrative [facility] - 07/09/2024 7:06 PM CDT Specimens containing human anti-mouse antibodies may exhibit false positive or false negative results. If qualitative interpretation is inconsistent with clinical evaluation, consider confirmation by an alternative hCG method. us Janna Mccain SENIOR PROGRAMMER-OBSTETRIC ASSISTANT LAB - URINALYSIS ORDERAB LES Final Result Performing Organization Address City/[facility]/ZIP Co de Phone Number [facility] [address] [place] [address] * (ABNORMAL) URINE DRUG SCREEN IMMUNOASSAY (07/09/2024 6:43 PM CDT) Pathologist [facility] Amphetamines Screen Urine Not detected Not detected 07/09/2024 7:49 PM CDT [facility] Barbiturates Screen Urine Not detected Not detected 07/09/2024 7:49 PM CDT [facility] Benzodiazepines Screen Urine Not detected Not detected 07/09/2024 7:49 PM CDT [facility] Cannabinoids Screen Urine Detected(A) Not detected 07/09/2024 7:49 PM CDT [facility] Cocaine Screen Urine Not detected Not detected 07/09/2024 7:49 PM CDT [facility] Fentanyl Urine Not detected Not detected 07/09/2024 7:49 PM CDT [facility] Methadone Screen Urine Not detected Not detected 07/09/2024 7:49 PM CDT [facility] Opiate Screen Urine Not detected Not detected 07/09/2024 7:49 PM CDT [facility] Phencyclidine Screen Urine Not detected Not detected 07/09/2024 7:49 PM CDT [facility] Urine URINE / Unknown Collection / Unknown 07/09/2024 6:43 PM CDT 07/09/2024 6:53 PM CDT Narrative [facility] - 07/09/2024 7:49 PM CDT This drug screen is designed for MEDICAL purposes only. It is not to be used for legal purposes, including but not limited to worker's comp, police investigations, occupational issues, child custody, etc. Any positive result is only presumptive and must be confirmed with a separate confirmatory test ordered by the physician. Drug Screening Test Cutoff Values: AMPHETAMINES 1000 ng/mL BARBITURATES 200 ng/mL BENZODIAZEPINES 200 ng/mL CANNABINOIDS(THC) 50 ng/mL COCAINE 300 ng/mL FENTANYL 1.5 ng/mL METHADONE 300 ng/mL OPIATES 300 ng/mL PHENCYCLIDINE(PCP) 25 ng/mL Uzair Soliz SENIOR PROGRAMMER-OBSTETRIC ASSISTANT LAB - URINE CHEMISTRY ORD ERABLES Final Result [facility] [address] [place] [address] * HIV-1 HIV-2 ANTIBODY + HIV P24 AG PANEL (01/13/2021 11:16 PM CDT) HIV1/2 Ab + P24 Ag Non Reactive Non Reactive 01/14/2021 12:08 AM CDT [facility] Blood BLOOD SPECIMEN / Unknown Venipuncture / Unknown 01/13/2021 11:16 PM CDT 01/13/2021 11:26 PM CDT Narrative [facility] - 01/14/2021 12:08 AM CDT No Laboratory evidence of HIV infection. Gary Olguin MD LAB - CHEMISTRY ORDERA BLES Final Result Performing Organization Address City/State/[facility] Co de Phone Number [facility] [address] [place], [place] [id number] from Last 3 Months or Most Recently Relevant to Health Maintenance Insurance ANTHEM ANTHEM Advance Directives * Full Code (Latest Code Status on File) Date Activated Date Inactivated Comments 07/07/2024 9:32 PM 07/12/2024 4:18 PM * Full Code Date Activated Date Inactivated Comments 01/20/2021 3:56 PM 01/22/2021 4:17 PM * Full Code Date Activated Date Inactivated Comments 01/17/2021 9:22 PM 01/20/2021 2:14 PM * Full Code Date Activated Date Inactivated Comments 01/14/2021 8:15 AM 01/17/2021 8:28 PM * Full Code Date Activated Date Inactivated Comments 12/20/2020 11:34 PM 12/25/2020 1:10 PM Care Teams Rn Or Lpn Relationship Specialty Start Date End Date Bryn Cervantes MD PCP - General 09/28/21 Unknown, Provider 08/23/16
--- OUTSIDE RECORDS SUMMARY | 2024-08-13 16:49 | XMS_ITS | Encounter Summary ---
Author Organization [facility] Address [address] [place] [address] Care Team Providers Care Drill Instructor Name Role Phone Elen Kong MD Primary Care Provider [phone] Encounter Details Date Type Department Care Team (Late st Contact Info) Description 12/08/2008 Outpatient Historical [facility] Er, Authorized P NO ADDRESS ON FILE Kervin Rico MD [facility] [place] [address] Other and Unspecified Ovarian Cyst Social History Tobacco Use Types Packs/Day Years Used Date Smoking Tobacco: Never Alcohol Use Standard Drinks/Week Comments Not Asked 0 (1 standard drink = 0.6 oz pur e alcohol) Comments No Sex and Gender Information Value Date Recorded Sex Assigned at Not on file 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 Gender Identity Not on file Sexual Orientation Not on file documented as of this encounter Plan of Treatment Not on file documented as of this encounter Procedures Procedure Name Priority Date/Time Associated Diagnosis Comments CT ABDOMEN PELVIS WO CONTRAST Routine 12/08/2008 6:36 PM CDT POC URINALYSIS DIPSTICK AUTOMATED Routine 12/08/2008 6:13 PM CDT POC , URINE Routine 12/08/2008 6:13 PM CDT CBC WITH DIFFERENTIAL Stat 12/08/2008 6:10 PM CDT C-REACTIVE PROTEIN Stat 12/08/2008 6: 10 PM CDT COMPREHENSIVE METABOLIC PANEL Stat 12/08/2008 6:10 PM CDT URINALYSIS WITH MICROSCOPIC Stat 12/08/2008 6:07 PM CDT documented in this encounter Results * CT ABDOMEN PELVIS WO CONTRAST (12/08/2008 6:36 PM CDT) Anatomical Region Laterality Modality Abdomen Other 12/08/2008 6:36 PM CDT Narrative 12/08/2008 7:05 PM CDT [facility] [address], [place] [address] Admit Date: 12/08/2008 PRATIK MICHAELA E Sex: F Admit Prov: ER, AUTHORIZED P Date: 1980 Primary Care Prov: MELITON VERA CMRN: [id number] Room: ERA SSN: [id number] IMAGING SERVICES Ordering Prov: N/A Accession Number: [id number] Interpretation EXAM: CT ABDOMEN AND PELVIS, STONE PROTOCOL 12/08/2008 INDICATION: Abdominal pain and gross hematuria. TECHNIQUE: 5 mm axial images of the abdomen and pelvis without contrast. FINDINGS: There is no evidence of stone in either renal collecting system or either ureter. There is no evidence of hydronephrosis or perinephric edema. Within the limits of a noncontrast study and lack of much intraabdominal fat, solid organs appear normal and there is no focal inflammatory process. There is no evidence of free fluid or free air. In the pelvis, there is a low density focus in the right posterior pelvis which may represent a cystic lesion of the right adnexa. Evaluation is limited without IV contrast. The uterus otherwise is normal for a noncontrast exam. IMPRESSION: Exam is limited by lack of contrast and due to the fact that there is virtually no intra-abdominal and pelvic fat to separate the soft tissue structures. In the right posterior pelvis there is a 4.4 cm low density focus which could be a cystic lesion of the right adnexa versus focal collection of fluid in the pelvis. The urinary bladder is not well evaluated, as it is mostly collapsed. No evidence of stone in either kidney. If clinically indicated, further evaluation could be obtained with IV and oral contrast exam. . Dictated by: ELISOE DURÁN 12/08/2008 18:57 Electronically signed by: ELISEO DURÁN 12/08/2008 19:04 Transcribed: 12/08/2008 19:04 SJ Procedure Note Eliseo Durán - 12/08/2008 [facility] [address] [facility] [place], [place] [address] Admit Date: 12/08/2008 MICHAELA ROLDAN Sex: F Admit Prov: ER, AUTHORIZED P Date: 1980 Primary Care Prov: MELITON VERA CMRN: [id number] [facility] SS[facility]: [id number] IMAGING SERVICES Ordering Prov: N/A Interpretation EXAM: CT ABDOMEN AND PELVIS, STONE PROTOCOL 12/08/2008 INDICATION: Abdominal pain and gross hematuria. TECHNIQUE: 5 mm axial images of the abdomen and pelvis withoutcontrast. FINDINGS: There is no evidence of stone in either renal collecting system oreither ureter. There is no evidence of hydronephrosis or perinephric edema.Within the limits of a noncontrast study and lack of much intraabdominalfat, solid organs appear normal and there is no focal inflammatoryprocess. There is no evidence of free fluid or free air. In the pelvis, there is a low density focus in the right posteriorpelvis which may represent a cystic lesion of the right adnexa. Evaluationis limited without IV contrast. The uterus otherwise is normal for a noncontrast exam. IMPRESSION: Exam is limited by lack of contrast and due to the fact that thereis virtually no intra-abdominal and pelvic fat to separate the softtissue structures. In the right posterior pelvis there is a 4.4 cm lowdensity focus which could be a cystic lesion of the right adnexa versusfocal collection of fluid in the pelvis. The urinary bladder is not well evaluated, as it is mostly collapsed. No evidence of stone in either kidney. If clinically indicated, further evaluation could be obtained with IVand oral contrast exam. . Dictated by: ELISEO DURÁN 12/08/2008 18:57 Electronically signed by: ELISEO DURÁN 12/08/2008 19:04 Transcribed: 12/08/2008 19:04 SJ us Kervin Rico MD CT ORDERABLES Final Result * POC , URINE (12/08/2008 6:13 PM CDT) [facility] , URINE POC Negative Negative [facility] CLIA LICENSE [id number] [facility] SPECIFIC GRAVITY UA 1.015 1.001 - 1.035 [facility] Urine specimen (specimen) 12/08/2008 6:13 PM CDT 12/08/2008 6:13 PM CDT us Authorized P Er POINT OF CARE TESTING Final Resu lt [facility] CLIA# [id number] [address] [place] [address] * (ABNORMAL) POC URINALYSIS DIPSTICK AUTOMATED (12/08/2008 6:13 PM CDT) [facility] LEUKOCYTE ESTERASE UA Negative Negative [facility] UROBILINOGEN UA Normal <=1 mg/dL [facility] SPECIFIC GRAVITY UA 1.015 1.001 - 1.030 [facility] GLUCOSE UA Negative Negative [facility] COLOR UA Yellow [facility] BILIRUBIN UA Negative Negative [facility] NITRITE UA Negative Negative [facility] PH UA 9.0(H) 5.0 - 8.0 [facility] KETONES UA Negative Negative [facility] CLIA LICENSE [id number] [facility] CLARITY UA Cloudy [facility] PROTEIN UA Negative Negative [facility] BLOOD UA Negative Negative [facility] COMMENT, URINE Test not chrgd/to repeat [facility] 12/08/2008 6:13 PM CDT 12/08/2008 6:13 PM CDT us Authorized P Er POINT OF CARE TESTING Edited [facility] CLIA# [id number] [address] [place] [address] * CBC WITH DIFFERENTIAL (12/08/2008 6:10 PM CDT) HEMOGLOBIN 13.3 11.8 - 14.8 g/dL [facility] RDW 12.9 11.5 - 14.5 % [facility] WBC 7.6 4.0 - 9.8 K/uL [facility] MCH 31.7 27.2 - 32.[address] [facility] MPV 9.4 9.3 - 12.[address] [facility] HEMATOCRIT 40.2 35.5 - 44.0 % [facility] RDW-STDEV 44.5 37.1 - 48.[address] [facility] RBC 4.19 3.90 - 4.90 M/uL [facility] MCHC 33.1 31.5 - 35.5 % [facility] MCV 95.9 82.0 - 99.[address] [facility] PLATELETS 262 140 - 350 K/uL [facility] EOSINOPHILS 2 0 - 7 % [facility] EOSINOPHIL ABSOLUTE 0.13 0.00 - 0.70 K/uL [facility] LYMPHOCYTES 42 16 - 45 % [facility] LYMPHOCYTE ABSOLUTE 3.19 0.70 - 4.50 K/uL [facility] BASOPHILS 0 0 - 2 % [facility] BASOPHILS ABSOLUTE 0.02 0.00 - 0.20 K/uL [facility] MONOCYTES 8 3 - 13 % [facility] MONOCYTE ABSOLUTE 0.59 0.10 - 1.30 K/uL [facility] NEUTROPHILS 48 45 - 70 % [facility] NEUTROPHIL ABSOLUTE 3.65 1.90 - 7.00 K/uL [facility] Blood specimen (specimen) 12/08/2008 6:10 PM CDT 12/08/2008 6:16 PM CDT Kervin Rico MD HEMATOLOGY ORDERABLES Edited Performing Organization Address [facility] Co de Phone Number [facility] CLIA# [id number] [address] [place] [address] * C-REACTIVE PROTEIN (12/08/2008 6:10 PM CDT) [facility] CRP <0.2 0.0 - 0.8 mg/dL [facility] Blood specimen (specimen) 12/08/2008 6:10 PM CDT 12/08/2008 6:16 PM CDT us Kervin Rico MD CHEMISTRY ORDERABLES Final Resu lt Performing Organization Address [facility] Co de Phone Number [facility] CLIA# [id number] [address] [place] [address] * (ABNORMAL) COMPREHENSIVE METABOLIC PANEL (12/08/2008 6:10 PM CDT) Pathologist [facility] CALCIUM 8.5(L) 8.6 - 10.2 mg/dL [facility] CHLORIDE 100 96 - 108 mmol/L [facility] ALBUMIN 4.1 3.4 - 4.8 g/dL [facility] CREATININE 0.66 0.51 - 0.95 mg/dL [facility] SODIUM 137 135 - 145 mmol/L [facility] ALT 18 0 - 31 U/L [facility] ALKALINE PHOSPHATASE 57 35 - 104 U/L [facility] BILIRUBIN TOTAL 0.2 0.2 - 1.0 mg/dL [facility] CO2 27 22 - 30 mmol/L [facility] TOTAL PROTEIN 6.7 6.3 - 8.6 g/dL [facility] POTASSIUM 3.3(L) 3.5 - 4.9 mmol/L [facility] GLUCOSE 82 65 - 99 mg/dL [facility] AST 19 12 - 32 U/L [facility] BUN 9 6 - 20 mg/dL [facility] GFR, >60 >=60 mL/min/1. [address] [facility] GFR >60 >=60 mL/min/1. [address] [facility] Comment: Modification of Diet in Renal Disease (MDRD) study formula. Estimated GFR rate interpretative information for both Americans and non- Americans is available on the [facility] Intranet at: [email or web address] Select: Lab Policies and Procedures Select: Reference Ranges - GFR Blood specimen (specimen) 12/08/2008 6:10 PM CDT 12/08/2008 6:16 PM CDT us Kervin Rico MD CHEMISTRY ORDERABLES Edited [facility] CLIA# [id number] [address] [place] [address] * (ABNORMAL) URINALYSIS WITH MICROSCOPIC (12/08/2008 6:07 PM CDT) BILIRUBIN UA Negative Negative [facility] PROTEIN UA Trace(A) Negative [facility] AMORPHOUS CRYSTAL Moderate /HPF [facility] LEUKOCYTE ESTERASE UA Negative Negative [facility] RBC UA <1 0 - 4 /HPF [facility] SPECIFIC GRAVITY UA 1.015 1.001 - 1.035 [facility] GLUCOSE UA Negative Negative [facility] BLOOD UA Negative Negative [facility] COLOR UA Yellow [facility] NITRITE UA Negative Negative [facility] EPITHELIAL CELLS, URINE 0-2 /HPF [facility] UROBILINOGEN UA <1 <=1 mg/dL [facility] PH UA 8.5(H) 5.0 - 8.0 [facility] WBC UA <1 0 - 5 /HPF [facility] KETONES UA Negative Negative [facility] CLARITY UA Cloudy(A) Clear [facility] 12/08/2008 6:07 PM CDT 12/08/2008 6:19 PM CDT us Kervin Rico MD URINE ORDERABLES Final Result [facility] CLIA# [id number] [address] [facility] [address] documented in this encounter Visit Diagnoses Diagnosis Other and unspecified ovarian cyst documented in this encounter Additional Health Concerns Infection Onset Date Last Indicated Resolved Time R/O C. diff 07/08/2023 07/08/2023 07/08/2023 12:2 3 PM CDT C Diff 07/08/2023 07/08/2023 09/06/2023 1:16 AM CDT R/O C. diff 07/22/2024 07/22/2024 07/23/2024 7:46 AM CDT documented as of this encounter Care Teams Drill Instructor Relationship Specialty Start Date End Date Elen Kong MD [address] [facility] [address] [place] [address] PCP - General Internal Medicine 07/21/17 11/13/18 documented as of this encounter
--- OUTSIDE RECORDS SUMMARY | 2024-08-13 16:49 | XMS_ITS | Encounter Summary ---
Author Organization [facility] Address [address] [place] [address] Care Team Providers Care At Risk Paraprofessional Name Role Phone Elen Kong MD Primary Care Provider [phone] Encounter Details Date Type Department Care Team (Late st Contact Info) Description 11/08/1997 Outpatient Historical [facility] Internal Medicine - [facility] [address] [address] [facility] [address] [place] [address] Mary Camacho MD Social History Tobacco Use Types Packs/Day Years Used Date Smoking Tobacco: Never Assessed Comments Unknown Sex and Gender Information Value Date Recorded Sex Assigned at Not on file 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
--- OUTSIDE RECORDS SUMMARY | 2024-08-13 16:49 | XMS_ITS | Encounter Summary ---
Author Organization [facility] Address [address] [place] [address] Care Team Providers Care Documentation Specialist Name Role Phone Elen Kong MD Primary Care Provider [phone] Encounter Details Date Type Department Care Team (Late st Contact Info) Description 09/26/2000 Outpatient Historical [facility] Internal Medicine - 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
--- OUTSIDE RECORDS SUMMARY | 2024-08-13 16:49 | XMS_ITS | Encounter Summary ---
Author Organization [facility] Address [address] [place] [address] Care Team Providers Care Community Relations Advisor Name Role Phone Elen Kong MD Primary Care Provider [phone] Encounter Details Date Type Department Care Team (Late st Contact Info) Description 08/08/1998 Outpatient Historical [facility] Internal Medicine - [facility] [address] [address] [facility] [address] [place] [address] Mary Camacho MD Social History Tobacco Use Types Packs/Day Years Used Date Smoking Tobacco: Never Assessed Comments Unknown Sex and Gender Information Value Date Recorded Sex Assigned at Not on file 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
--- OUTSIDE RECORDS SUMMARY | 2024-08-13 16:49 | XMS_ITS | Encounter Summary ---
Author Organization [facility] Address [address] [place] [address] Care Team Providers Care Pullman Clerk Name Role Phone Elen Kong MD Primary Care Provider [phone] Encounter Details Date Type Department Care Team (Late st Contact Info) Description 02/19/1998 Outpatient Historical [facility] Internal Medicine - [facility] [address] [address] [facility] [address] [place] [address] Mary Camacho MD Social History Tobacco Use Types Packs/Day Years Used Date Smoking Tobacco: Never Assessed Comments Unknown Sex and Gender Information Value Date Recorded Sex Assigned at Not on file 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
--- OUTSIDE RECORDS SUMMARY | 2024-08-13 16:49 | XMS_ITS | Encounter Summary ---
Author Organization [facility] Address [address] [place] [address] Care Team Providers Care Stockkeeper Name Role Phone Elen Kong MD Primary Care Provider [phone] Encounter Details Date Type Department Care Team (Late st Contact Info) Description 05/16/1998 Outpatient Historical [facility] Internal Medicine - [facility] [address] [address] [facility] [address] [place] [address] Mary Camacho MD Social History Tobacco Use Types Packs/Day Years Used Date Smoking Tobacco: Never Assessed Comments Unknown Sex and Gender Information Value Date Recorded Sex Assigned at Not on file 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 [address] [place] [address] PCP - General Internal Medicine 07/21/17 11/13/18 documented as of this encounter
--- OUTSIDE RECORDS SUMMARY | 2024-08-13 16:49 | XMS_ITS | Encounter Summary ---
Author Organization [facility] Address [address] [place] [address] Care Team Providers Care 1St Grade Teacher Name Role Phone Elen Kong MD Primary Care Provider [phone] Encounter Details Date Type Department Care Team (Late st Contact Info) Description 07/23/2004 Outpatient Historical [facility] Internal Medicine - [facility] [address] [address] [facility] [address] [place] [address] Mary Camacho MD Social History Tobacco Use Types Packs/Day Years Used Date Smoking Tobacco: Never Assessed Comments Unknown Sex and Gender Information Value Date Recorded Sex Assigned at Not on file 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
--- NOTE | 2024-08-13 16:57 | PC.NURSE ---
Pt moved to room 15. Pt continues to ask what we are waiting on. This RN and MD have explained to patient that we are waiting for her MINI to come down so she can speak with crisis. We also told her that if she has a ride she is able to leave. she states no one wants to talk to me they want me to sober up here
[2024-08-13 18:25] LABS: Ethanol 83 mg/dL (<10)
[2024-08-13] MEDS: ONDANSETRON INJ 4 MG/2 ML VIAL IV PUSH (21:29)
--- NOTE | 2024-08-13 21:43 | PC.NURSE ---
Per [employer] workers, so far all facilties are stating they are full and to call back in the morning besides [facility] and [facility]. [facility] has faxed over everything to those two facilties. Still waiting to hear back on if pt is accepted from either.
[2024-08-13 23:42] VITALS: BP 121/88; PULSE 84; RESP 18; O2SAT 97
[2024-08-14] MEDS: ONDANSETRON INJ 4 MG/2 ML VIAL IV PUSH ×2 (01:13→07:01)
== END 2024-08-14 07:05 ==
PROVIDERS: Emergency Provider Emergency Medicine
DX: F30.9 Manic episode, unspecified (principal); F10.929 Alcohol use, unspecified with intoxication, unspecified; Y90.8 Blood alcohol level of 240 mg/100 ml or more; Z11.52 Encounter for screening for COVID-19; I45.10 Unspecified right bundle-branch block
CPT/HCPCS: 36415; 80053; 80143; 80179; 80307; 81003; 81025; 82077; 83690; 83735; 84439; 84443; 84480; 85025; 87637; 93005; 96361; 96374; 96376; 99284; J2405; J7120

== ENCOUNTER 2024-08-22 19:47 | Emergency (ER) | payer BC, SELFPAY ==
--- NOTE | ~2024-08-22 | XR_ITS ---
CHEST RADIOGRAPH CLINICAL HISTORY: AMS . COMPARISON: None available TECHNIQUE: Single portable view of the chest. FINDINGS The cardiomediastinal silhouette is unremarkable. The lungs are clear. IMPRESSION: No focal infiltrate or effusion. Reviewed, dictated and finalized at location A.
[2024-08-22 19:48] VITALS: BP 114/80; PULSE 93; RESP 10; TEMP 36.8; O2SAT 97
--- NOTE | 2024-08-22 19:59 | ECG_ITS ---
Test Date: 2024-08-22 20:14:19 Measurements Intervals [place] Rate: 83 P: 52 [place]: 155 QRS: 48 QRSD: 84 T: 69 QT: 373 QTc: 440 Interpretive Statements SINUS RHYTHM POSSIBLE LEFT ATRIAL ENLARGEMENT [-0.1mV P-WAVE IN V1/V2] POSSIBLE RIGHT VENTRICULAR CONDUCTION DELAY [RSR (QR) IN V1/V2] SEPTAL MYOCARDIAL INFARCTION , OF INDETERMINATE AGE [40+ ms Q WAVE IN V1/V2] Compared to ECG 08/13/2024 12:47:29 NO SIGNIFICANT CHANGES Electronically Signed On 08-23-2024 10:05:55 CDT by Jacky Kingston M.D.
[2024-08-22 20:06] VITALS: O2SAT 97
[2024-08-22 20:12] LABS: Basophils Absolute Auto 0.1 K/mm3 (0.0-0.1); Basophils Percent Auto 1.3 % (0.2-1.2); Hematocrit 37.8 % (37.0-47.0); Hemoglobin 11.9 g/dL (12.0-15.0); Immature Granulocyte Absolute 0.01 K/mm3 (0.00-0.031); Immature Granulocyte Percent A 0.3 % (0-0.5); Lymphocytes Absolute Auto 2.05 K/mm3 (0.9-3.2); Lymphocytes Percent Auto 52.4 % (18.3-44.2); Mean Corpuscular HGB Conc 31.5 g/dl (32-36); Mean Corpuscular Volume 95.2 fl (80-100); Mean Platelet Volume 8.9 fl (7.4-10.4); Monocytes Absolute Auto 0.5 K/mm3 (0.1-0.6); Monocytes Percent Auto 11.8 % (2.6-8.5); Neutrophils Absolute Auto 1.3 K/mm3 (1.3-6.7); Neutrophils Percent Auto 33.2 % (45.5-73.1); Platelet Count Result 219 k/mm3 (150-375); Red Blood Count 3.97 M/mm3 (4.2-5.4); Red Cell Distribution Width 14.5 % (11.5-14.5); White Blood Count 3.9 K/mm3 (4.5-10.0)
[2024-08-22] MEDS: SODIUM CHLORIDE 0.9% IV 2,000 ML 999 ML IV CONT (20:12)
[2024-08-22 20:21] LABS: Acetaminophen < 10 ug/mL (10-30); Alanine Aminotransferase 19 U/L (6-35); Albumin Level 3.8 g/dL (3.5-5.1); Alkaline Phosphatase 67 U/L (38-126); Anion Gap 8 mmol/L (4-12); Aspartate Amino Transferase 30 U/L (14-36); Bilirubin,Total 0.3 mg/dL (0.2-1.3); Blood Urea Nitrogen 10 mg/dL (7-17); Calcium 7.7 mg/dL (8.4-10.2); Carbon Dioxide 28 mmol/L (22-30); Chloride 110 mmol/L (98-107); Creatine Kinase 34 U/L (30-135); Estimated Glomerular Filt Rate > 60; Ethanol 184 mg/dL (<10); Glucose 127 mg/dL (65-110); Salicylate < 1.0 mg/dL (2-20); Sodium 146 mmol/L (137-145)
--- OUTSIDE RECORDS SUMMARY | 2024-08-22 20:26 | XMS_ITS | Encounter Summary ---
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 PHARMACY NUMBER: [phone] SECTION 1: REQUESTED ACTION juan 03/24/07 at [...] on Saturday, March 24, 2007 * Lilia, [facility] Conv Transcriptions - 08/31/2007 10:01 AM [...] friends and main support systems are in [place]where she went to school. Becomes very tearful [...] lymphadenopathy in the neck. 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 PSYCHIATRIC: Appropriate judgment and [...] documented as of this encounter Care Teams Diploma Dental Assistant Relationship Specialty Start Date End Date Elen Kong MD [address] [facility] [address] [place] [address] PCP - General Internal Medicine 07/21/17 11/13/18 documented as of this encounter
--- OUTSIDE RECORDS SUMMARY | 2024-08-22 20:26 | XMS_ITS | Encounter Summary ---
Author Organization [facility] Address [address] [place] [address] Care Team Providers Care Digital Media Representative Name Role Phone Elen Kong MD Primary Care Provider [phone] Encounter Details Date Type Department Care Team (Late st Contact Info) Description 07/21/2007 Outpatient Historical [facility] Internal Medicine - [facility] [address] [address] [facility] [address] [place] [address] Mary Camacho MD Social History Tobacco Use Types Packs/Day Years Used Date Smoking Tobacco: Never Assessed Comments Unknown Sex and Gender Information Value Date Recorded Sex Assigned at Not on file 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
--- OUTSIDE RECORDS SUMMARY | 2024-08-22 20:26 | XMS_ITS | Encounter Summary ---
Author Organization [facility] Address [address] [place] [address] Care Team Providers Care Project Management Analyst Name Role Phone Elen Kong MD Primary Care Provider [phone] Encounter Details Date Type Department Care Team (Late st Contact Info) Description 05/16/1998 Outpatient Historical [facility] Internal Medicine - [facility] [address] [address] [facility] [address] [place] [address] Mary Camacho MD Social History Tobacco Use Types Packs/Day Years Used Date Smoking Tobacco: Never Assessed Comments Unknown Sex and Gender Information Value Date Recorded Sex Assigned at Not on file 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
--- OUTSIDE RECORDS SUMMARY | 2024-08-22 20:26 | XMS_ITS | Encounter Summary ---
Author Organization [facility] Address [address] [place] [address] Care Team Providers Care Senior Reservations Agent Name Role Phone Elen Kong MD Primary Care Provider [phone] Encounter Details Date Type Department Care Team (Late st Contact Info) Description 01/21/1998 Outpatient Historical [facility] Internal Medicine - [facility] [address] [address] [facility] [address] [place] [address] Mary Camacho MD Social History Tobacco Use Types Packs/Day Years Used Date Smoking Tobacco: Never Assessed Comments Unknown Sex and Gender Information Value Date Recorded Sex Assigned at Not on file Legal Sex Female 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
--- OUTSIDE RECORDS SUMMARY | 2024-08-22 20:26 | XMS_ITS | Encounter Summary ---
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
--- OUTSIDE RECORDS SUMMARY | 2024-08-22 20:26 | XMS_ITS | Encounter Summary ---
Author Organization [facility] Address 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
--- OUTSIDE RECORDS SUMMARY | 2024-08-22 20:26 | XMS_ITS | Encounter Summary ---
Author Organization [facility] Address [address] [place] [address] Care Team Providers Care Transplant Immunologist Name Role Phone Elen Kong MD Primary Care Provider [phone] Encounter Details Date Type Department Care Team (Late st Contact Info) Description 04/08/1998 Outpatient Historical [facility] Internal Medicine - 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
--- OUTSIDE RECORDS SUMMARY | 2024-08-22 20:26 | XMS_ITS | Encounter Summary ---
Author Organization [facility] Address [address] [place] [address] Care Team Providers Care Laboratory Analyst Name Role Phone Elen Kong MD Primary Care Provider [phone] Encounter Details Date Type Department Care Team (Late st Contact Info) Description 07/01/1998 Outpatient Historical [facility] Internal Medicine - 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
--- OUTSIDE RECORDS SUMMARY | 2024-08-22 20:26 | XMS_ITS | Encounter Summary ---
Author Organization [facility] Address [address] [place] [address] Care Team Providers Care Circular Gang Saw Operator Name Role Phone Elen Kong MD Primary Care Provider [phone] Encounter Details Date Type Department Care Team (Late st Contact Info) Description 10/11/2000 Outpatient Historical [facility] Internal Medicine - [facility] [address] [address] [facility] [address] [place] [address] Mary Camacho MD Social History Tobacco Use Types Packs/Day Years Used Date Smoking Tobacco: Never Assessed Comments Unknown Sex and Gender Information Value Date Recorded Sex Assigned at Not on file 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
--- OUTSIDE RECORDS SUMMARY | 2024-08-22 20:26 | XMS_ITS | Encounter Summary ---
Author Organization [facility] Address [address] [place] [address] Care Team Providers Care Shoe Stamper Name Role Phone Unavailable Primary Care Provider Unavailabl e Reason for Visit * Reason Onset Date Comments NAUSEA & LOSS OF APPETITE, E PALOMA ABUSE 10/04/2019 SPOKE WITH NICOL @ DR TALIA ESCOBAR'S OFFICE Encounter Details Date Type Department Care Team (Late st Contact Info) Description 10/04/2019 Telephone [facility] Admitting [address] [place] [address] [place] [address] [place] [address] NAUSEA & LOSS OF APPETITE, [...] on file Legal Sex Female 4:05 AM DIRECTOR OF LABORATORY OPERATIONS Gender Identity Not on file Sexual Orientation [...]
--- OUTSIDE RECORDS SUMMARY | 2024-08-22 20:26 | XMS_ITS | Encounter Summary ---
Author Organization [facility] Address [address] [place] [address] Care Team Providers Care Time Clock Mechanic Name Role Phone Elen Kong MD Primary Care Provider [phone] Encounter Details Date Type Department Care Team (Late st Contact Info) Description 07/26/2007 Outpatient Historical [facility] Internal Medicine - [facility] [address] [address] [facility] [address] [place] [address] Meliton Camacho MD Social History Tobacco Use Types Packs/Day Years Used Date Smoking Tobacco: Never Assessed Comments Unknown Sex and Gender Information Value Date Recorded Sex Assigned at Not on file 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 Sex Female 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 Gender Identity Not on file Sexual [...] (07/29/2007 7:00 AM CDT) TSH 0.79 mIU/L [facility] Comment: REFERENCE RANGE: > OR = 20 YEARS: 0.40-4.50 RANGES FIRST TRIMESTER 0.20-4.70 SECOND TRIMESTER 0.30-4.10 THIRD TRIMESTER 0.40-2.70 Test Performed at: [facility] [address] [address] [place] [address] SHIRA PADILLA MD Narrative [facility] - 07/29/2007 7:00 AM CDT Ordered by MELITON CAMACHO us Historical Provider CHEMISTRY ORDERABLES Final R esult [facility] [address] [place] [address] * CBC WITH DIFFERENTIAL (07/29/2007 7:00 AM CDT) WBC 7.6 3.8 - 10.8 Thousand/u L [facility] . [facility] RBC 4.44 3.80 - 5.10 Million/uL [facility] . [facility] HEMOGLOBIN 13.9 11.7 - 15.5 g/dL [facility] HEMATOCRIT 40.9 35.0 - 45.0 % [facility] . [facility] MCV 92.3 80.0 - 100.0 fL [facility] MCH 31.3 27.0 - 33.0 pg [facility] . [facility] MCHC 33.9 32.0 - 36.0 g/dL [facility] . [facility] RDW 13.8 11.0 - 15.0 % [facility] . [facility] PLATELETS 333 140 - 400 Thousand/u L [facility] . [facility] NEUTROPHIL ABSOLUTE 4,735 1,500 - 7,800 cells/uL [facility] . [facility] LYMPHOCYTE ABSOLUTE 2,067 850 - 3,900 cells/uL [facility] MONOCYTE ABSOLUTE 578 200 - 950 cells/uL [facility] . [facility] EOSINOPHIL ABSOLUTE 160 15 - 500 cells/uL [facility] BASOPHILS ABSOLUTE 61 0 - 200 cells/uL [facility] NEUTROPHIL 62.3 % [facility] LYMPHOCYTES 27.2 % [facility] . [facility] MONOCYTE 7.6 % [facility] EOSINOPHILS 2.1 % [facility] BASOPHILS 0.8 % [facility] Comment: Test Performed at: [facility] [place] [address] [facility] [place] [address] SHIRA PADILLA MD Narrative [facility] - 07/29/2007 7:00 AM CDT Ordered by MELITON CAMACHO Historical Provider HEMATOLOGY ORDERABLES Final Result [facility] [address] [place] [address] * (ABNORMAL) COMPREHENSIVE METABOLIC PANEL (07/29/2007 7:00 AM CDT) GLUCOSE 99 65 - 99 mg/dL [facility] Comment:FASTING REFERENCE IN TERVAL BUN 5(L) 7 - 25 mg/dL [facility] CREATININE 0.74 0.50 - 1.20 mg/dL [facility] GFR >60 > OR = 60 mL/min/1.7 3m2 [facility] GFR, >60 > OR = 60 mL/min/1.7 3m2 [facility] BUN/CREAT RATIO 7 6 - 22 (calc) [facility] SODIUM 139 135 - 146 mmol/L [facility]. [facility] POTASSIUM 3.9 3.5 - 5.3 mmol/L [facility] . [facility] CHLORIDE 105 98 - 110 mmol/L [facility] . [facility] CO2 23 21 - 33 mmol/L [facility] . [facility] CALCIUM 9.2 8.6 - 10.2 mg/dL [facility]. [facility] TOTAL PROTEIN 7.4 6.2 - 8.3 g/dL [facility] ALBUMIN 4.5 3.6 - 5.1 g/dL [facility]. [facility] GLOBULIN 2.9 2.2 - 3.9 g/dL (calc) [facility] ALBUMIN/GLOBULIN RATIO 1.6 1.0 - 2.1 (calc) [facility] BILIRUBIN TOTAL 0.5 0.2 - 1.2 mg/dL [facility] ALKALINE PHOSPHATASE 48 33 - 115 U/L [facility]. [facility] AST 12 10 - 30 U/L [facility]. [facility] ALT 6 6 - 40 U/L [facility] Comment: Test Performed at: [facility] [place] [address] [address] SHIRA PADILLA MD Narrative [facility] - 07/29/2007 7:00 AM CDT Ordered by MELITON CAMACHO us Historical Provider CHEMISTRY ORDERABLES Final R esult [facility] [address] [place] [address] documented in this encounter Visit Diagnoses Not on filedocumented in this encounter Additional Health Concerns Infection Onset Date Last Indicated Resolved Time R/O C. diff 07/08/2023 07/08/2023 07/08/2023 12:2 3 PM CDT C Diff 07/08/2023 07/08/2023 09/06/2023 1:16 AM CDT R/O C. diff 07/22/2024 07/22/2024 07/23/2024 7:46 AM CDT documented as of this encounter Care Teams Time Clock Mechanic Relationship Specialty Start Date End Date Elen Kong MD [address] [facility] [address] [place] [address] PCP - General Internal Medicine 07/21/17 11/13/18 documented as of this encounter
--- OUTSIDE RECORDS SUMMARY | 2024-08-22 20:26 | XMS_ITS | Encounter Summary ---
Author Organization [facility] Address [address] [place] [address] Care Team Providers Care Receiving Operator Name Role Phone Elen Kong MD Primary Care Provider Encounter Details Date Type Department Care Team (Late st Contact Info) Description 12/08/2008 Outpatient Historical [facility] Er, Authorized P NO ADDRESS ON FILE Kervin Rico MD [facility] [place] [address] Other and Unspecified Ovarian Cyst Social History Tobacco Use Types Packs/Day Years Used Date Smoking Tobacco: Never Alcohol Use Standard Drinks/Week Comments Not Asked 0 (1 standard drink = 0.6 oz pur e alcohol) Comments No Sex and Gender Information Value Date Recorded Sex Assigned at Not on file 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, [place] [address] Admit Date: 12/08/2008 PRATIK MICHAELA E Sex: F Admit Prov: ER, AUTHORIZED P Date: 1980 Primary Care Prov: MELITON VERA CMRN: [id number] Room: ERA SSN: [id number] IMAGING SERVICES Ordering Prov: N/A Accession Number: [id number] Interpretation EXAM: CT ABDOMEN AND PELVIS, STONE [...] and oral contrast exam. . Dictated by: ELSIEO DURÁN 12/08/2008 18:57 Electronically signed by: ELISEO DURÁN 12/08/2008 19:04 Transcribed: 12/08/2008 19:04 SJ Procedure Note Eliseo Durán - 12/08/2008 [facility] [address] [facility] [place], [place] [address] Admit Date: 12/08/2008 MICHAELA ROLDAN Sex: F Admit Prov: ER, AUTHORIZED P Date: 1980 Primary Care Prov: MELITON VERA CMRN: [id number] [facility]: [id number] IMAGING SERVICES Ordering Prov: N/A Interpretation EXAM: [...] POC , URINE (12/08/2008 6:13 PM CDT) [facility] , URINE POC Negative Negative [facility] CLIA LICENSE [id number] [facility] SPECIFIC GRAVITY UA 1.015 1.001 - 1.035 [facility] Urine specimen (specimen) 12/08/2008 6:13 PM CDT 12/08/2008 6:13 PM CDT us Authorized P Er POINT OF CARE TESTING Final Resu lt [facility] CLIA# [id number] [address] [place] [address] * (ABNORMAL) POC URINALYSIS DIPSTICK AUTOMATED (12/08/2008 6:13 PM CDT) [facility] LEUKOCYTE ESTERASE UA Negative Negative [facility] UROBILINOGEN UA Normal <=1 mg/dL [facility] SPECIFIC GRAVITY UA 1.015 1.001 - 1.030 [facility] GLUCOSE UA Negative Negative [facility] COLOR UA Yellow [facility] BILIRUBIN UA Negative Negative [facility] NITRITE UA Negative Negative [facility] PH UA 9.0(H) 5.0 - 8.0 [facility] KETONES UA Negative Negative [facility] CLIA LICENSE [id number] [facility] CLARITY UA Cloudy [facility] PROTEIN UA Negative Negative [facility] BLOOD UA Negative Negative [facility] COMMENT, URINE Test not chrgd/to repeat [facility] 12/08/2008 6:13 PM CDT 12/08/2008 6:13 PM CDT us Authorized P Er POINT OF CARE TESTING Edited [facility] CLIA# [id number] [address] [place] [address] * CBC WITH DIFFERENTIAL (12/08/2008 6:10 PM CDT) HEMOGLOBIN 13.3 11.8 - 14.8 g/dL [facility] RDW 12.9 11.5 - 14.5 % [facility] WBC 7.6 4.0 - 9.8 K/uL [facility] MCH 31.7 27.2 - 32.6 pg [facility] MPV 9.4 9.3 - 12.4 fL [facility] HEMATOCRIT 40.2 35.5 - 44.0 % [facility] RDW-STDEV 44.5 37.1 - 48.7 fL [facility] RBC 4.19 3.90 - 4.90 M/uL [facility] MCHC 33.1 31.5 - 35.5 % [facility] MCV 95.9 82.0 - 99.0 fL [facility] PLATELETS 262 140 - 350 K/uL [facility] EOSINOPHILS 2 0 - 7 % [facility] EOSINOPHIL ABSOLUTE 0.13 0.00 - 0.70 K/uL [facility] LYMPHOCYTES 42 16 - 45 % [facility] LYMPHOCYTE ABSOLUTE 3.19 0.70 - 4.50 K/uL [facility] BASOPHILS 0 0 - 2 % [facility] BASOPHILS ABSOLUTE 0.02 0.00 - 0.20 K/uL [facility] MONOCYTES 8 3 - 13 % [facility] MONOCYTE ABSOLUTE 0.59 0.10 - 1.30 K/uL [facility] NEUTROPHILS 48 45 - 70 % [facility] NEUTROPHIL ABSOLUTE 3.65 1.90 - 7.00 K/uL [facility] Blood specimen (specimen) 12/08/2008 6:10 PM CDT 12/08/2008 6:16 PM CDT Kervin Rico MD HEMATOLOGY ORDERABLES Edited Performing Organization Address [facility] Co de Phone Number [facility] CLIA# [id number] [address] [place] [address] * C-REACTIVE PROTEIN (12/08/2008 6:10 PM CDT) [facility] CRP <0.2 0.0 - 0.8 mg/dL [facility] Blood specimen (specimen) 12/08/2008 6:10 PM CDT 12/08/2008 6:16 PM CDT us Kervin Rico MD CHEMISTRY ORDERABLES Final Resu lt Performing Organization Address [facility] Co de Phone Number [facility] CLIA# [id number] [address] [place] [address] * (ABNORMAL) COMPREHENSIVE METABOLIC PANEL (12/08/2008 6:10 PM CDT) Pathologist [facility] CALCIUM 8.5(L) 8.6 - 10.2 mg/dL [facility] CHLORIDE 100 96 - 108 mmol/L [facility] ALBUMIN 4.1 3.4 - 4.8 g/dL [facility] CREATININE 0.66 0.51 - 0.95 mg/dL [facility] SODIUM 137 135 - 145 mmol/L [facility] ALT 18 0 - 31 U/L [facility] ALKALINE PHOSPHATASE 57 35 - 104 U/L [facility] BILIRUBIN TOTAL 0.2 0.2 - 1.0 mg/dL [facility] CO2 27 22 - 30 mmol/L [facility] TOTAL PROTEIN 6.7 6.3 - 8.6 g/dL [facility] POTASSIUM 3.3(L) 3.5 - 4.9 mmol/L [facility] GLUCOSE 82 65 - 99 mg/dL [facility] AST 19 12 - 32 U/L [facility] BUN 9 6 - 20 mg/dL [facility] GFR, >60 >=60 mL/min/1. 7 sq meter [facility] GFR >60 >=60 mL/min/1. 7 sq meter [facility] Comment: Modification of Diet in Renal Disease (MDRD) study formula. Estimated GFR rate interpretative information for both Americans and non- Americans is available on the [facility] Intranet at: [email or web address] Select: Lab Policies and Procedures Select: Reference Ranges - GFR Blood specimen (specimen) 12/08/2008 6:10 PM CDT 12/08/2008 6:16 PM CDT us Kervin Rico MD CHEMISTRY ORDERABLES Edited [facility] CLIA# [id number] [address] [place] [address] * (ABNORMAL) URINALYSIS WITH MICROSCOPIC (12/08/2008 6:07 PM CDT) BILIRUBIN UA Negative Negative [facility] PROTEIN UA Trace(A) Negative [facility] AMORPHOUS CRYSTAL Moderate /HPF [facility] LEUKOCYTE ESTERASE UA Negative Negative [facility] RBC UA <1 0 - 4 /HPF [facility] SPECIFIC GRAVITY UA 1.015 1.001 - 1.035 [facility] GLUCOSE UA Negative Negative [facility] BLOOD UA Negative Negative [facility] COLOR UA Yellow [facility] NITRITE UA Negative Negative [facility] EPITHELIAL CELLS, URINE 0-2 /HPF [facility] UROBILINOGEN UA <1 <=1 mg/dL [facility] PH UA 8.5(H) 5.0 - 8.0 [facility] WBC UA <1 0 - 5 /HPF [facility] KETONES UA Negative Negative [facility] CLARITY UA Cloudy(A) Clear [facility] 12/08/2008 6:07 PM CDT 12/08/2008 6:19 PM CDT us Kervin Rico MD URINE ORDERABLES Final Result [facility] CLIA# [id number] [address] [facility] [address] documented in this encounter Visit Diagnoses Diagnosis Other and unspecified ovarian cyst documented in this encounter Additional Health Concerns Infection Onset Date Last Indicated Resolved Time R/O C. diff 07/08/2023 07/08/2023 07/08/2023 12:2 3 PM CDT C Diff 07/08/2023 07/08/2023 09/06/2023 1:16 AM CDT R/O C. diff 07/22/2024 07/22/2024 07/23/2024 7:46 AM CDT documented as of this encounter Care Teams Receiving Operator Relationship Specialty Start Date End Date Elen Kong MD [address] [facility] [address] [place] [address] PCP - General Internal Medicine 07/21/17 11/13/18 documented as of this encounter
--- OUTSIDE RECORDS SUMMARY | 2024-08-22 20:26 | XMS_ITS | Encounter Summary ---
Author Organization [facility] Address [address] [place] [address] Care Team Providers Care Director Of Home Care Hospice Name Role Phone Elen Kong MD Primary Care Provider Encounter Details Date Type Department Care Team (Late st Contact Info) Description 02/04/1998 Outpatient Historical 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
--- OUTSIDE RECORDS SUMMARY | 2024-08-22 20:26 | XMS_ITS | Encounter Summary ---
Author Organization [facility] Address [address] [place] [address] Care Team Providers Care Fiberglass Pipe Covering Supervisor Name Role Phone Elen Kong MD Primary Care Provider [phone] Encounter Details Date Type Department Care Team (Late st Contact Info) Description 06/11/1998 Outpatient Historical [facility] Internal Medicine - 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
--- OUTSIDE RECORDS SUMMARY | 2024-08-22 20:26 | XMS_ITS | Clinical Summary ---
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 Cervantes and Dr. Melissa at discharge - Appointment with Dr. Melissa for 01/20 at 10:30 am - Interested in [facility] after discharge - Also interested in discharging with Acamprosate Last Assessment & Plan: - Librium 25 mg q24h - [facility] protocol - Ativan 2 mg for scores >8 - Ativan 4 mg for seizures - Regular diet - Folate, MV, Thiamine supplementation - Consults to check out clerk, social sciences professor, and nutrition - PT/OT to prevent deconditioning while inpatient - Fall/Seizure/Aspiration precautions - Zofran and Reglan PRN - Follow up with Dr. Cervantes and Dr. Melissa at discharge - Appointment with Dr. Melissa for 01/20 at 10:30 am - Interested in [facility] after discharge - Also interested in discharging with Acamprosate ADHD (attention deficit hyperactivity disorder) 08/23/2016 Routine general medical examination at [facility] 04/22/2015 Bipolar disorder, current episode mixed, moderat e 12/17/2013 Overview (07/28/2024 2:52 PM CDT): >>OVERVIEW FOR BIPOLAR DISORDER WITH DEPRESSION ([facility]) WRITTEN ON 04/27/2023 4:03 PM BY ANGELA [...] Encounters Date Type Department Care Team Description 08/21/2024 External Device Data [facility] Provider, Abstract 07/27/2024 9:30 PM CDT - 07/29/2024 2:50 PM CDT Hospital Encounter [address] [address] Lisa Manuel MD Shemwell, Kathryn, MD Bipolar disorder, current episode mixed, moderate (CMS/HCC) Discharge Disposition: Rehab Facility IP 07/24/2024 External Device Data [facility] Provider, Abstract 07/24/2024 External Device Data [facility] Provider, Abstract 07/24/2024 External Device Data [facility] Provider, Abstract 07/22/2024 Travel 07/21/2024 11:30 AM CDT - 07/27/2024 8:17 PM CDT Hospital Encounter [facility] Medicine [address] [place] [address] Gurpreet Bernabe MD Demeo, Jimmy, DO Feldmeier, Michael, MD Gravely, Wilfrido Huang, DO Menendez, Daniel Alfred, Skyla Avendano DO Page, Parrish Junior MD Alcohol-induced acute pancreatitis without infection or necrosis [facility]charge Disposition[facility] 07/21/2024 3:02 AM CDT - 07/21/2024 8:46 AM CDT Emergency [facility] Emergency Department [address] [place] [address] Baudilio Alanis DO Flach, Ryan C, MD [...] on file 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 CHOLESTEROL 189 <200 mg/dL 07/28/2024 6:00 AM CDT [facility] TRIGLYCERIDE 101 <150 mg/dL 07/28/2024 6:00 AM T [facility] HDL 54 40 - 59 mg/dL 07/28/2024 6:00 AM T [facility] LDL CALCULATED 115(H) <100 mg/dL 07/28/2024 6:00 AM T [facility] NON-HDL CHOLESTEROL 135(H) <130 mg/dL 07/28/2024 6:00 AM T [facility] Blood Venipuncture / Unknown 07/28/2024 5:13 AM CDT 07/28/2024 5:46 AM CDT [facility] - 07/28/2024 6:00 AM CDT TOTAL CHOLESTEROL [...] Manuel MD CHEMISTRY ORDERABLES Final Res ult [facility] CLIA # [id number] [address] [place] [address] * (ABNORMAL) BASIC METABOLIC PANEL (07/26/2024 3:04 AM CDT) SODIUM 138 136 - 145 mmol/L 07/26/2024 5:14 AM T [facility] POTASSIUM 4.1 3.5 - 5.0 mmol/L 07/26/2024 5:14 AM T [facility] - . [facility] CHLORIDE 102 98 - 107 mmol/L 07/26/2024 5:14 AM T [facility] - [facility] CO2 25 22 - 29 mmol/L 07/26/2024 5:14 AM T [facility] - [facility] CALCIUM 8.9 8.6 - 10.2 mg/dL 07/26/2024 5:14 AM T [facility] BUN 5(L) 6 - 20 mg/dL 07/26/2024 5:14 AM T [facility] - . [facility] CREATININE 0.48(L) 0.51 - 0.95 mg/dL 07/26/2024 5:14 AM T [facility] GLUCOSE 113(H) 74 - 99 mg/dL 07/26/2024 5:14 AM T [facility] GFR >60 >=60 mL/min/1.7 3 sq meter 07/26/2024 5:14 AM [facility] Comment:eGFR calculated with 2020 CKD-EPI equation. Vegetarian diet, extremely high or low muscle mass, and may affect results. Cystatin C with Glomerular Filtration Rate is a suitable alternative for these patients. ANION GAP 11 8 - 16 mmol/L 07/26/2024 5:14 AM [facility] Blood Venipuncture / Unknown 07/26/2024 3:04 AM CDT 07/26/2024 4:31 AM CDT Parrish Mcgee MD CHEMISTRY ORDERABLES Final Res ult [facility]# [id number] [address] [place], [place] [id number] * (ABNORMAL) CBC WITHOUT DIFFERENTIAL (07/24/2024 3:30 AM CDT) Only the most recent of2 resultswithin the time period is included. WBC 6.1 4.0 - 9.8 K/uL 07/24/2024 4:02 AM [facility] RBC 4.15 3.90 - 4.90 M/uL 07/24/2024 4:02 AM T [facility] HEMOGLOBIN 12.4 11.8 - 14.8 g/dL 07/24/2024 4:02 AM T [facility] HEMATOCRIT 39.2 35.5 - 44.0 % 07/24/2024 4:02 AM [facility] MCV 94.5 82.0 - 99.0 fL 07/24/2024 4:02 AM T [facility] MCH 29.9 27.2 - 32.6 pg 07/24/2024 4:02 AM CDT [facility] MCHC 31.6 31.5 - 35.5 g/dL 07/24/2024 4:02 AM T [facility] PLATELETS 230 140 - 350 K/uL 07/24/2024 4:02 AM T [facility] MPV 9.7 9.3 - 12.4 fL 07/24/2024 4:02 AM T [facility] RDW 14.4 11.5 - 14.5 % 07/24/2024 4:02 AM T [facility] RDW-STDEV 49.9(H) 37.1 - 48.7 fL 07/24/2024 4:02 AM T [facility] - . [facility] Blood Venipuncture / Unknown 07/24/2024 3:30 AM CDT 07/24/2024 3:51 AM CDT us Skyla Fu DO HEMATOLOGY ORDERABLES Final Resu lt [facility]# [id number] [address] [facility] [place] [address] * (ABNORMAL) COMPREHENSIVE METABOLIC PANEL (07/24/2024 3:30 AM CDT) Only the most recent of4 resultswithin the time period is included. SODIUM 138 136 - 145 mmol/L 07/24/2024 4:21 AM CDT [facility] - [facility] POTASSIUM 3.6 3.5 - 5.0 mmol/L 07/24/2024 4:21 AM T [facility] CHLORIDE 106 98 - 107 mmol/L 07/24/2024 4:21 AM CDT [facility] CO2 23 22 - 29 mmol/L 07/24/2024 4:21 AM T [facility] CALCIUM 8.4(L) 8.6 - 10.2 mg/dL 07/24/2024 4:21 AM [facility] BUN 4(L) 6 - 20 mg/dL 07/24/2024 4:21 AM [facility] CREATININE 0.52 0.51 - 0.95 mg/dL 07/24/2024 4:21 AM [facility] GLUCOSE 164(H) 74 - 99 mg/dL 07/24/2024 4:21 AM [facility] TOTAL PROTEIN 5.7(L) 6.7 - 8.6 g/dL 07/24/2024 4:21 AM [facility] ALBUMIN 3.3(L) 3.5 - 5.2 g/dL 07/24/2024 4:21 AM [facility] BILIRUBIN TOTAL 0.3 0.3 - 1.2 mg/dL 07/24/2024 4:21 AM [facility] ALKALINE PHOSPHATASE 101 35 - 104 U/L 07/24/2024 4:21 AM [facility] AST 22 <33 U/L 07/24/2024 4:21 AM [facility] ALT 8 <34 U/L 07/24/2024 4:21 AM [facility] GFR >60 >=60 mL/min/1.7 3 sq meter 07/24/2024 4:21 AM [facility] Comment:eGFR calculated with 2020 CKD-EPI equation. Vegetarian diet, extremely high or low muscle mass, and may affect results. Cystatin C with Glomerular Filtration Rate is a suitable alternative for these patients. ANION GAP 9 8 - 16 mmol/L 07/24/2024 4:21 AM [facility] Blood Venipuncture / Unknown 07/24/2024 3:30 AM CDT 07/24/2024 3:51 AM [facility]ORATORY SERVICES [facility] - 07/24/2024 4:21 AM T Samples containing indocyanine green cause interferences on Total and/or Direct Bilirubin and must not be measured. Skyla Fu DO CHEMISTRY ORDERABLES Final Resul t [facility]# [id number] [address] [place] [address] * (ABNORMAL) MAGNESIUM LEVEL (07/23/2024 1:03 AM CDT) MAGNESIUM 1.5(L) 1.6 - 2.6 mg/dL 07/23/2024 1:59 PM CDT [facility] Blood Venipuncture / Unknown 07/23/2024 1:03 AM CDT 07/23/2024 1:19 AM CDT Subha Ford DO CHEMISTRY ORDERABLES Final Result Performing Organization Address [facility] Co de Phone Number [facility]# [id number] [address] [place] [address] * (ABNORMAL) LIPASE (07/23/2024 1:03 AM CDT) Only the most recent of3 resultswithin the time period is included. LIPASE 170(H) 13 - 60 U/L 07/23/2024 1:52 AM CDT [facility] Blood Venipuncture / Unknown 07/23/2024 1:03 AM CDT 07/23/2024 1:19 AM CDT Wilfrido Sofia DO CHEMISTRY ORDERABLES Final Result [facility]# [id number] [address] [place] [address] * CT ABDOMEN PELVIS W CONTRAST (07/22/2024 10:26 AM CDT) Anatomical Region Laterality Modality Abdomen Computed Tomogra phy 07/22/2024 10:0 8 AM CDT Impressions 07/22/2024 10:39 AM CDT IMPRESSION: 1. Acute interstitial edematous pancreatitis without discrete, drainable peripancreatic fluid collection or vascular complication. DICTATION LOCATION: Location 1 - [facility] 07/22/2024 10:39 AM CDT EXAMINATION: CT [...] vascular complication. DICTATION LOCATION: Location 1 - [facility] Wilfrido Sofia DO CT ORDERABLES Final Resul t * C-REACTIVE PROTEIN (07/22/2024 8:29 AM CDT) CRP <3.0 <5.0 mg/L 07/22/2024 11:36 AM CDT [facility] Blood Venipuncture / Unknown 07/22/2024 8:29 AM CDT 07/22/2024 8:32 AM CDT Gurpreet Bernabe MD CHEMISTRY ORDERABLES Final Res ult [facility]# [id number] [address] [place] [address] * TSH (07/22/2024 8:29 AM CDT) Only the most recent of2 resultswithin the time period is included. TSH 0.48 0.27 - 4.20 uIU/mL 07/22/2024 9:24 AM CDT [facility] Blood Venipuncture / Unknown 07/22/2024 8:29 AM CDT 07/22/2024 8:32 AM CDT Wilfrido Sofia DO CHEMISTRY ORDERABLES Final Result [facility] [employer] [facility]# [id number] [address] [place] [address] * (ABNORMAL) DRUG SCREEN, URINE (07/22/2024 8:00 AM CDT) AMPHETAMINE QUAL, URINE Negative Negative 07/22/2024 8:54 AM CDT [facility] SERVICES [facility] BARBITURATE QUAL, URINE Negative Negative 07/22/2024 8:54 AM CDT [facility] SERVICES [facility] BENZODIAZEPINE QUAL, URINE Presumptive Positive(A) Negative 07/22/2024 8:54 AM CDT [facility] SERVICES [facility] COCAINE QUAL URINE Negative Negative 07/22/2024 8:54 AM CDT [facility] - [facility] OPIATE QUAL, URINE Negative Negative 07/22/2024 8:54 AM CDT [facility] CANNABINOIDS QUAL, URINE Presumptive Positive(A) Negative 07/22/2024 8:54 AM CDT [facility] - [facility] PCP QUAL, URINE Negative Negative 8:54 AM CDT [facility] - [facility] OXYCODONE QUAL, URINE Negative Negative 07/22/2024 8:54 AM CDT [facility] SERVICES [facility] METHADONE QUAL, URINE Negative Negative 07/22/2024 8:54 AM [facility] FENTANYL QUAL, URINE Negative Negative 07/22/2024 8:54 AM [facility] CREATININE, URINE 126.0 29.0 - 226.0 mg/dL 07/22/2024 8:54 AM [facility] Comment:Reference Range vari es with fluid intake and diet. Urine URINE SPECIMEN OBTAINED BY CLEAN CATCH PROCEDURE / Unknown Collection / Unknown 07/22/2024 8:00 AM CDT 07/22/2024 8:11 AM [facility] - 07/22/2024 8:54 AM [facility] This test is a qualitative screen. The [...] Chino MD URINE ORDERABLES Final Resu lt [facility]# [id number] [address] [facility] [place] [address] * (ABNORMAL) URINALYSIS WITH REFLEX MICROSCOPIC (07/22/2024 8:00 AM CDT) COLOR UA Yellow Pale to Dark Yellow 07/22/2024 8:18 AM [facility] CLARITY UA Clear Clear 07/22/2024 8:18 AM [facility] SPECIFIC GRAVITY UA 1.026 1.003 - 1.035 07/22/2024 8:18 AM [facility] PH UA 9.0(A) 5.0 - 8.0 07/22/2024 8:18 AM [facility] LEUKOCYTE ESTERASE UA Negative Negative 07/22/2024 8:18 AM CDT [facility] - [facility] NITRITE UA Negative Negative 07/22/2024 8:18 AM CDT [facility] PROTEIN UA 2+(A) Negative 07/22/2024 8:18 AM CDT [facility] - [facility] GLUCOSE UA Negative Negative 07/22/2024 8:18 AM CDT [facility]ORY SERVICES - [facility] KETONES UA Negative Negative 07/22/2024 8:18 AM CDT [facility] - [facility] UROBILINOGEN UA Normal <2.0 mg/dL 8:18 AM CDT [facility] - [facility] BILIRUBIN UA Negative Negative 07/22/2024 8:18 AM CDT [facility] BLOOD UA Negative Negative 07/22/2024 8:18 AM CDT [facility] - [facility] WBC UA 0-2 0 - 2 /hpf 07/22/2024 8:18 AM CDT [facility] [employer] [facility] - [facility] RBC UA 0-2 0 - 2 /hpf 07/22/2024 8:18 AM CDT [facility] - [facility] BACTERIA UA Negative Negative /hpf 07/22/2024 8:18 AM T [facility] EPITHELIAL CELLS, URINE 0-5 0 - 5 /hpf 07/22/2024 8:18 AM T [facility] Urine URINE SPECIMEN OBTAINED BY CLEAN CATCH PROCEDURE / Unknown Collection / Unknown 07/22/2024 8:00 AM CDT 07/22/2024 8:08 AM CDT us Luis Alberto Chino MD URINE ORDERABLES Final Resu lt [facility] [id number] 7 [facility] [place] [place] [address] * HCG QUALITATIVE, URINE (07/22/2024 8:00 AM CDT) HCG QUAL URINE Negative Negative 07/22/2024 8:25 AM CDT [facility] SERVICES [facility] COLOR UA Yellow Pale to Dark Yellow 07/22/2024 8:25 AM CDT [facility] CLARITY UA Clear Clear 07/22/2024 8:25 AM CDT [facility] Urine URINE SPECIMEN OBTAINED BY CLEAN CATCH PROCEDURE / Unknown Collection / Unknown 07/22/2024 8:00 AM CDT 07/22/2024 8:11 AM CDT Luis Alberto Chino MD URINE ORDERABLES Final Resu lt Performing Organization Address City/State/[facility] Co de Phone Number [facility]# [id number] [address] [place] [address] * INFLUENZA A/B, RSV AND COVID-19 PCR PANEL (07/22/2024 5:00 AM CDT) COVID-19 PCR NOT DETECTED Not Detected 07/23/19 5:52 AM CDT [facility] Influenza A by PCR NOT DETECTED Not Detected 07/22/2024 5:52 AM CDT [facility] Influenza B by PCR NOT DETECTED Not Detected 07/22/2024 5:52 AM CDT [facility] RSV by PCR NOT DETECTED Not Detected 07/22/2024 5:52 AM CDT [facility] Upper Respiratory ANTERIOR NARES SWAB / Unknown Collection / Unknown 07/22/2024 5:00 AM CDT 07/22/2024 5:02 AM CDT Narrative [facility] - 07/22/2024 5:52 AM CDT This test [...] MICROBIOLOGY - GENERAL ORDE RABLES Final Result [facility] [id number] [address] [place] [address] * (ABNORMAL) CBC WITH DIFFERENTIAL (07/22/2024 5:00 AM CDT) WBC 9.5 4.0 - 9.8 K/uL 07/22/2024 5:18 AM CDT [facility] RBC 4.36 3.90 - 4.90 M/uL 07/22/2024 5:18 AM CDT [facility]ATORY SERVICES - [facility] HEMOGLOBIN 13.2 11.8 - 14.8 g/dL 07/22/2024 5:18 AM CDT [facility] - [facility] HEMATOCRIT 40.0 35.5 - 44.0 % 07/22/2024 5:18 AM CDT [facility] - [facility] MCV 91.7 82.0 - 99.0 fL 07/22/2024 5:18 AM CDT [facility]ATORY SERVICES - . [facility] MCH 30.3 27.2 - 32.6 pg 07/22/2024 5:18 AM CDT [facility] SERVICES - . [facility] MCHC 33.0 31.5 - 35.5 g/dL 07/22/2024 5:18 AM CDT [facility] SERVICES - . [facility] RDW 14.6(H) 11.5 - 14.5 % 07/22/2024 5:18 AM CDT [facility] SERVICES - . [facility] RDW-STDEV 48.7 37.1 - 48.7 fL 07/22/2024 5:18 AM CDT [facility] - [facility] PLATELETS 274 140 - 350 K/uL 07/22/2024 5:18 AM CDT [facility] - [facility] MPV 9.0(L) 9.3 - 12.4 fL 07/22/2024 5:18 AM CDT [facility] NEUTROPHILS 62 % 07/22/2024 5:18 AM CDT [facility] LYMPHOCYTES 27 % 07/22/2024 5:18 AM CDT [facility] MONOCYTES 9 % 07/22/2024 5:18 AM CDT [facility] - [facility] EOSINOPHILS 1 % 07/22/2024 5:18 AM CDT [facility] BASOPHILS 1 % 07/22/2024 5:18 AM CDT [facility] - . [facility] IMMATURE GRANULOCYTES 0 % 07/22/2024 5:18 AM CDT [facility] - . [facility] NEUTROPHIL ABSOLUTE 5.90 1.90 - 7.00 K/uL 07/22/2024 5:18 AM CDT [facility] - [facility] LYMPHOCYTE ABSOLUTE 2.56 0.70 - 4.50 K/uL 07/22/2024 5:18 AM CDT [facility] - [facility] MONOCYTE ABSOLUTE 0.80 0.10 - 1.30 K/uL 07/22/2024 5:18 AM CDT [facility] - [facility] EOSINOPHIL ABSOLUTE 0.09 0.00 - 0.70 K/uL 07/22/2024 5:18 AM CDT [facility] - [facility] BASOPHILS ABSOLUTE 0.09 0.00 - 0.20 K/uL 07/22/2024 5:18 AM CDT [facility] - . [facility] IMMATURE GRANULOCYTES ABSOLUTE 0.02 0.00 - 0.03 K/uL 07/22/2024 5:18 AM CDT [facility] Blood Venipuncture / Unknown 07/22/2024 5:00 AM CDT 07/22/2024 5:02 AM CDT Luis Alberto Chino MD HEMATOLOGY ORDERABLES Final Result [facility]ATORY SERVICES [facility]# [id number] [address] [place] [address] [place] [address] * (ABNORMAL) ETHANOL LEVEL (07/21/2024 3:58 AM CDT) ETHANOL 226.00(H) <10.10 mg/dL 07/21/2024 4:46 AM CDT [facility] - [facility] ETHANOL % 0.23 %w/v 07/21/2024 4:46 AM CDT [facility] Blood Venipuncture / Unknown 07/21/2024 3:58 AM CDT 07/21/2024 4:00 AM CDT Baudilio Alanis DO CHEMISTRY ORDERABLES Final Result Performing Organization Address [facility] Co de Phone Number [facility] CLIA# [id number] [address] [place] [address] * (ABNORMAL) ACETAMINOPHEN LEVEL (07/21/2024 3:58 AM CDT) ACETAMINOPHEN LEVEL <5(L) 10 - 30 ug/mL 07/21/2024 4:44 AM CDT [facility] Comment: Acetaminophen Toxic Range - Post Dose 4 hr >200 ug/mL 8 hr >100 ug/mL 12 hr >50 ug/mL Pediatric toxic concentration: 2 hr post ingestion(liquid)= >225 ug/mL Blood Venipuncture / Unknown 07/21/2024 3:58 AM CDT 07/21/2024 4:00 AM CDT Baudilio Alanis DO CHEMISTRY ORDERABLES Final Result Performing Organization Address [facility] de Phone Number [facility] CLIA# [id number] [address] [place] [address] * (ABNORMAL) SALICYLATE LEVEL (07/21/2024 3:58 AM CDT) SALICYLATE LEVEL <1.0(L) 3.0 - 30.0 mg/dL 07/21/2024 4:44 AM CDT [facility] Blood Venipuncture / Unknown 07/21/2024 3:58 AM CDT 07/21/2024 4:00 AM CDT Baudilio Alanis DO CHEMISTRY ORDERABLES Final Result Performing Organization Address City/State/[facility] Co de Phone Number [facility]# [id number] [address] [place] [address] from Last 3 Months Insurance RX [employer] (INTERNAL) [facility] RX [facility] Commercial RX [facility] Commercial RX [facility] Commercial BCBS EXCHANGE BCBS EXCHANGE Advance Directives For more information, please contact: [phone] * Full Code (Latest Code Status on [...]
--- OUTSIDE RECORDS SUMMARY | 2024-08-22 20:26 | XMS_ITS | Encounter Summary ---
Author Organization [facility] Address 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
--- OUTSIDE RECORDS SUMMARY | 2024-08-22 20:26 | XMS_ITS | Encounter Summary ---
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 Transcriptions - 09/21/2007 6:13 PM CDT TIME:09:23 am PATIENT`S HOME PHONE: PATIENT`S WORK PHONE: PATIENT`S INSURANCE: ANTHEM WHO TOOK THE CALL: Caroline Austin GENERAL INFORMATION * [employer] Transcriptions - 09/21/2007 6:13 PM CDT TIME:09:24 am PATIENT`S HOME PHONE: PATIENT`S WORK PHONE: PATIENT`S INSURANCE: ANTHEM WHO TOOK THE CALL: Caroline Austin GENERAL INFORMATION PCP: SECTION 1: need written rx and signed by to be faxed to [id number] wellbutrin xl oral tab 24 hr [...] on Thursday, June 28, 2007 * [employer] Transcriptions - 09/21/2007 6:10 PM CDT TIME:11:57 am PATIENT`S HOME PHONE: PATIENT`S WORK PHONE: PATIENT`S INSURANCE: MIC WHO TOOK THE CALL: Janeth Whitney GENERAL INFORMATION WHO CALLED: [facility] SECTION 1: written REQUESTED ACTION tasiss 06/28/07 at 11:57 am: They need written order to discontinue her lexapro fax # [phone] FINAL ACTION: timmtt 06/28/07 at 05:38 pm [...] documented as of this encounter Care Teams Cleaning Team Member Relationship Specialty Start Date End Date Elen Kong MD [address] [place] [address] PCP - General Internal Medicine 07/21/17 11/13/18 documented as of this encounter
--- OUTSIDE RECORDS SUMMARY | 2024-08-22 20:26 | XMS_ITS | Clinical Summary ---
Author Organization [facility] Address [address] [place] [address] Care Team Providers Care Sales Operations Associate Name Role Phone Family Care, Progressive Unavailable [phone] Miscellaneous, Not In File Unavailable Unava ilable Gurpreet Shirley MD Unavailable [phone] Gurpreet Fleming MD Primary Care Provider [phone] Allergies Active Allergy Reactions Criticality Noted Date Comments Amoxicillin Itching,Rash Medium 02/21/2023 Diphenhydramine Unknown 03/30/2018 Fluoxetine Itching Low 07/10/2024 Gabapentin Swelling Medium 06/30/2022 Levofloxacin Muscle pain,Other (S ee comments) Medium 01/03/2023 Feels like law is splitting [employer] Citrate Nausea & Vomiting Low 08/14/2024 Medications doxepin (SINEquan) 75 mg capsuleIndication s:Insomnia [...] (NATHALY/BAD1/MDD/PTSD) Assessment & Plan (04/30/2024 6:56 PM INSIDE SALES LEAD): Patient initially presented to the ED with [...] baseline, remains perseverative on discharge, going to [facility] as soon as possible. Discussed with patient that she will need to bring her previously, recently, filled medications from home (including doxepin, BuSpar, olanzapine, added these to her discharge instructions) with her to [facility] or have her mother pick them up [...] use + has agreed to go to [facility] Alcohol withdrawal syndrome without complication 09/04/2023 [...] 01/27/2021 Assessment & Plan (04/30/2024 6:52 PM INSIDE SALES LEAD): Patient states yes history of PTSD, with [...] - Librium 25 mg q24h - [facility] protocol - Ativan 2 mg for scores >8 - Ativan 4 mg for seizures - Regular diet - Folate, MV, Thiamine supplementation - Consults to senior vice president & general counsel, director of social media marketing, and nutrition - PT/OT to prevent deconditioning while inpatient - Fall/Seizure/Aspiration precautions - Zofran and Reglan PRN - Follow up with Dr. Cervantes and Dr. Melissa at discharge - Appointment with Dr. Melissa for 01/20 at 10:30 am - Interested in [facility] after discharge - Also interested in discharging with Acamprosate Assessment & Plan (04/30/2024 6:51 PM INSIDE SALES LEAD): Patient has a longstanding history of alcohol [...] Recommendations: - Please admit patient [facility] to [facility] or [facility] under Dr. Booker under standard suicide/elopement/assault precautions (continue these in the ED). - Voluntary paperwork signed, faxed to [facility], and placed in patient's physical chart. - Discussed with ED team and psychiatry internal affairs investigator on-call, who are in agreement. - While [...] any questions or to request re- evaluation. Encounters Date Type Department Care Team Description 08/14/2024 5:21 PM CDT - 08/14/2024 10:26 PM CDT Emergency [facility] Emergency Department [address] [place] [address] Alcohol-induced acute pancreatitis without infection or necrosis (Primary Dx) Discharge Disposition: Discharge to psych hospital or psych unit from Last 3 Months Immunizations Immunization Administration Dates Next Due DTaP 01/23/2006 H1N1 Inj 01/14/2014 Influenza, Trivalent, IM (MDV) 02/07/2013 Influenza, Unspecified 02/10/2021,01/22/2019 Td, adsorbed 04/18/2005,09/17/1995 Tdap 08/22/2019 Surgical History Surgery Date Site/Laterality Comments OTHER SURGICAL HISTORY 1994 Orbital fracture AUGMENTATION MAMMOPLASTY breast augmentation Medical History Medical History Date Comments Hx Other Medical 2011 nasal surgery Seizures (HCC) Anxiety Depression ETOH abuse Pancreatitis Family History Medical History Relation Name Comments Prostate cancer Father Cancer -pros kirby; /Cancer, prostate; Bipolar disorder Sister Relation Name Status Comments Father Alive Sister Social History Tobacco Use Types Packs/Day Years Used Date Smoking Tobacco: Every Day Vaping Smokeless Tobacco: Never Tobacco Cessation:Ready to Q uit: Not Asked; Counseling Given: Not Answered Alcohol Use Standard Drinks/Week Comments Yes 0 (1 standard drink = 0.6 oz pur e alcohol) [facility] [employer] Answer Date Recorded In the past 12 months has [employer], gas, oil, or water [employer] threatened to shut off services in your [...] often do you attend chur ch or baptist services? 1 to 4 times per year 04/25/2024 Do you belong to any clubs o r organizations such as spiritism groups, unions, fraternal or athletic groups, or [...] and heating? Not hard at all 04/25/2024 [facility] [place] of Occupat ional Health - Occupational Stress [...] place to sleep or slept in a correction (including now)? No 12/29/2022 Housing Stability Vital Sign Answer Naren e Recorded In the last 12 months, was t here a time when you were not able to pay the mortgage or rent on time? No 04/25/2024 In the past 12 months, how m any times have you moved where you were living? 1 04/25/2024 At any time in the past 12 m [facility], were you homeless or living in a correction (including now)? No 04/25/2024 Personal Safety Answer Date Recorded Have you ever been in or are you currently in a harmful physical or emotional relationship or is someone making you feel afraid or unsafe? Denies 08/14/2024 Education Answer Date Recorded What is the highest level of school you have completed or the highest degree you have received? 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, [employer]) 01/27/2021 Comments No Sex and Gender Information Value Date Recorded Sex Assigned at Not on file Legal Sex Female 10:48 PM INSIDE SALES LEAD Gender Identity Not on file Sexual Orientation Not on file Occupation Industry Job Start Date Job End Date Unemployed Not on file Not on file Not on file Obstetrics History Last Filed Vital Signs Vital Sign Reading Time Taken Comments Blood Pressure 118/83 08/14/2024 6:00 PM CDT Pulse 70 08/14/2024 6:00 PM CDT Temperature 36.6 C (97.9 F) 08/14/2024 5:25 PM CDT Respiratory Rate 13 08/14/2024 6:00 PM CDT Oxygen Saturation 99% 08/14/2024 6:00 PM CDT Inhaled Oxygen Concentration - - Weight 56.7 kg (125 lb) 08/14/2024 5:25 PM CDT Height 175.3 cm (5' 9 ) 08/14/2024 5:25 PM CDT Body Mass Index 18.46 08/14/2024 5:25 PM CDT Plan of Treatment Health Maintenance [...] Date/Time Associated Diagnosis Comments CT ABDOMEN PELVIS W CONTRAST ED 08/14/2024 7:49 PM CDT POCT HCG, URINE Routine 08/14/2024 6:01 PM CDT EGFR STAT 08/14/2024 5:55 PM CDT DIFFERENTIAL AUTO STAT 08/14/2024 5:5 5 PM CDT LIPASE STAT 08/14/2024 5:55 PM CDT COMPREHENSIVE METABOLIC PANEL STAT 08/14/2024 5:55 PM CDT CBC WITH AUTO DIFFERENTIAL STAT 08/14/2024 5:55 PM CDT URINALYSIS AND REFLEX TO MICROSCOPIC AND CULTURE STAT 08/14/2024 5:55 PM CDT HEPATITIS C ANTIBODY Routine 04/25/2024 1:44 PM INSIDE SALES LEAD from Last 3 Months or Most Recently Relevant to Health Maintenance Results * CT Abdomen Pelvis W Contrast (08/14/2024 7:49 PM CDT) Anatomical Region Laterality Modality Body N/A Computed Tomogra phy 08/15/2024 9:17 AM CDT Addenda Addendum by Whit Fishman MD on 08/22/2024 1:48 PM CDT Unable to reach patient. Will mail a certified letter. Whit NIX RN. Edited by: Whit Romo Electronically signed by: Whit Fishman M.D. Impressions 08/15/2024 9:17 AM CDT IMPRESSION: 1. Acute pancreatitis. 2. Mild thickening of the gallbladder wall without adjacent inflammatory changes is likely reactive. 3. 4.5 cm septated left adnexal cystic lesion, follow-up ultrasound in 4-6 weeks. 4. Preliminary report by teleradiology. ADDENDUM - This addendum is being placed on the report for a non-time dependent finding on a patient who was discharged from the emergency room (1C). Left adnexal cystic lesion. Mild thickening of the gallbladder wall. Attempts will be made to contact the patient or his/her primary doctor during regular business hours Tuesday-Tuesday. An addendum will be issued to confirm contact has been made to communicate this finding. Electronically signed by: Whit Fishman M.D. Narrative 08/15/2024 9:17 AM CDT EXAMINATION:CT abdomen and pelvis with contrast DATE: 08/14/2024 7:20 PM HISTORY: Pancreatitis, acute, severe TECHNIQUE: Standard CT abdomen and pelvis protocol and 100 mL Optiray 350 intravenous contrast. COMPARISON: CT 12/27/2022 FINDINGS: Breast implants are partly seen. The heart is normal in size. Aorta is normal in caliber and opacification. Lung bases are free of opacities. There is diffuse hepato-steatosis. There is minimal gallbladder wall thickening without stranding, likely reactive, correlate clinically for acute cholecystitis. The pancreatic stranding consistent with acute pancreatitis. Small amount of free fluid is seen in the abdomen. No fluid collection to indicate pseudocyst. There is no bowel obstruction or free air. Appendix is note clearly visualized but there are no signs of acute appendicitis. Bladder is unremarkable. Uterus is within normal limits. Septated 4.5 cm left adnexal cystic lesion. Trace free fluid in the pelvis. Bony structures are within normal limits. Procedure Note Whit Fishman MD - 08/15/2024 EXAMINATION:CT abdomen and pelvis with contrast DATE: 08/14/2024 7:20 PM HISTORY: Pancreatitis, acute, severe TECHNIQUE: Standard CT abdomen and pelvis protocol and 100 mL Optiray 350 intravenous contrast. COMPARISON: CT 12/27/2022 FINDINGS: Breast implants are partly seen. The heart is normal in size. Aorta is normal in caliber and opacification. Lung bases are free of opacities. There is diffuse hepato-steatosis. There is minimal gallbladder wall thickening without stranding, likely reactive, correlate clinically for acute cholecystitis. The pancreatic stranding consistent with acute pancreatitis. Small amount of free fluid is seen in the abdomen. No fluid collection to indicate pseudocyst. There is no bowel obstruction or free air. Appendix is note clearly visualized but there are no signs of acute appendicitis. Bladder is unremarkable. Uterus is within normal limits. Septated 4.5 cm left adnexal cystic lesion. Trace free fluid in the pelvis. Bony structures are within normal limits. IMPRESSION: IMPRESSION: 1. Acute pancreatitis. 2. Mild thickening of the gallbladder wall without adjacent inflammatory changes is likely reactive. 3. 4.5 cm septated left adnexal cystic lesion, follow-up ultrasound in 4-6 weeks. 4. Preliminary report by teleradiology. ADDENDUM - This addendum is being placed on the report for a non-time dependent finding on a patient who was discharged from the emergency room (1C). Left adnexal cystic lesion. Mild thickening of the gallbladder wall. Attempts will be made to contact the patient or his/her primary doctor during regular business hours Tuesday-Tuesday. An addendum will be issued to confirm contact has been made to communicate this finding. Electronically signed by: Whit Fishman M.D. Michele MTZ IMG CT PROCEDURES Edited Result - Final * POCT hCG, urine (08/14/2024 6:01 PM CDT) HCG, ur, POC Negative Negative Lot Number [id number] QC Backgroud Clear Acceptable QC Control Line Acceptable Urine 08/14/2024 6:01 PM CDT Levi Dasilva DO POINT OF CARE TEST ORDERAB LES Final Result * eGFR (08/14/2024 5:55 PM CDT) Pathologist [facility] eGFR >90 >=60 mL/min/1. 73 m2 Comment: Interpretive Data Reference Interval Normal >/= 90 mL/min/1.73m2 Mildly decreased* 60 - 89 mL/min/1.73m2 Mildly to moderately decreased 45 - 59 mL/min/1.73m2 Moderately to severely decreased 30 - 44 mL/min/1.73m2 Severely decreased 15 - 29 mL/min/1.73m2 Kidney Failure < 15 mL/min/1.73m2 *Relative to young adult level Estimated glomerular filtration rate is determined by the 2020 CKD-EPI equation recommended by the National Kidney Foundation (A Unifying Approach to GFR Estimation: Recommendations of the NKF-ASK Task Force on Reassessing the Inclusion of Race in Diagnosing Kidney Disease, JASN 2020). The CKD-EPI equation should not be used for patients with unstable renal function and has not been validated in children and those over 70. Current interpretive data was last reviewed 2021. Blood 08/14/2024 5:55 PM CDT 08/14/2024 6:01 PM CDT Levi Dasilva DO LAB BLOOD ORDERABLES Final Result [facility] [address] [facility] [place] [address] * Differential, auto (08/14/2024 5:55 PM CDT) Neutrophil abs 4.99 1.50 - 6.50 K/cumm Imm gran abs 0.01 0.00 - 0.10 K/cumm [facility] Lymphocyte abs 1.86 0.80 - 3.30 K/cumm [facility] Monocyte abs 0.69 0.20 - 0.80 K/cumm [facility] Eosinophil abs 0.04 0.00 - 0.50 K/cumm [facility] Basophil abs 0.03 0.00 - 0.10 K/cumm [facility] Neutrophil pct 65.5 % [facility] Comment: Interpretive Data Percent cell count reference ranges are not reported, since discordance with absolute values may lead to misinterpretation of CBC data. Current Interpretive Data was last revised on 2017. Imm gran pct 0.1 % [facility] Comment: Interpretive Data Percent cell count reference ranges are not reported, since discordance with absolute values may lead to misinterpretation of CBC data. Current Interpretive Data was last revised on 2017. Lymphocyte pct 24.4 % [facility] Comment: Interpretive Data Percent cell count reference ranges are not reported, since discordance with absolute values may lead to misinterpretation of CBC data. Current Interpretive Data was last revised on 2017. Monocyte pct 9.1 % [facility] Comment: Interpretive Data Percent cell count reference ranges are not reported, since discordance with absolute values may lead to misinterpretation of CBC data. Current Interpretive Data was last revised on 2017. Eosinophil pct 0.5 % [facility] Comment: Interpretive Data Percent cell count reference ranges are not reported, since discordance with absolute values may lead to misinterpretation of CBC data. Current Interpretive Data was last revised on 2017. Basophil pct 0.4 % [facility] Comment: Interpretive Data Percent cell count reference ranges are not reported, since discordance with absolute values may lead to misinterpretation of CBC data. Current Interpretive Data was last revised on 2017. Blood 08/14/2024 5:55 PM CDT 08/14/2024 6:01 PM CDT Levi Dasilva DO LAB BLOOD ORDERABLES Final Result Performing Organization Address City/[facility]/ZIP Co de Phone Number [facility] [address] [facility] Department [place] [address] * (ABNORMAL) Urinalysis reflex to microscopic and culture Urine (08/14/2024 5:55 PM CDT) Color, ur Alma Yellow Clarity, ur Turbid(A) Clear [facility] Specific gravity, ur 1.022 1.003 - 1.030 [facility] pH, urine 6.0 [facility] Comment: Interpretive Data U rine pH is affected by diet, medications, systemic acid-base disturbances, and renal tubular function. pH may affect urinary stone formation. For example, urine pH below 6.0 may help reduce the tendency for calcium phosphate stones and pH greater than 6.0 may reduce the tendency for uric acid stone formation. Source: [facility] Current Interpretive Data was last revised on 2017 Protein, ur ql Negative Negative [facility] Glucose, ur ql Negative Negative [facility] Ketones, ur Negative Negative [facility] Bilirubin, ur Negative Negative [facility] Blood, ur Negative Negative [facility] Urobilinogen, ur <2.0 <2.0 mg/dL [facility] Nitrite, ur Negative Negative [facility] Leukocyte esterase, ur Negative Negative [facility] UA reflex comment Reflex conditions for microscopic UA and culture not met. [facility] Urine 08/14/2024 5:55 PM CDT 08/14/2024 6:01 PM CDT Levi Dasilva DO LAB MICROBIOLOGY - GENERAL ORDERABLES Final Result Performing Organization Address City/[facility]/ZIP Co de Phone Number [facility] [address] [facility] Department [place] [address] * (ABNORMAL) CBC with auto differential (08/14/2024 5:55 PM CDT) WBC 7.62 3.80 - 9.90 K/cumm Hgb 11.6(L) 11.9 - 15.5 g/dL [facility] Hct 34.1(L) 35.6 - 45.5 % [facility] Plt 183 150 - 400 K/cumm [facility] MPV 9.5 9.1 - 12.3 fL [facility] RBC 3.82(L) 3.90 - 5.20 M/cumm [facility] MCV 89.3 81.3 - 96.4 fL [facility] MCH 30.4 27.1 - 33.3 pg [facility] MCHC 34.0 32.3 - 35.7 g/dL [facility] RDW CV 13.3 11.1 - 14.9 % [facility] RDW SD 43.3 35.7 - 48.1 fL [facility] Blood Venous blood specimen / Unknown 08/14/2024 5:55 PM CDT 08/14/2024 6:01 PM CDT us Levi Dasilva DO LAB BLOOD ORDERABLES Final Result Performing Organization Address City/[facility]/ZIP Co de Phone Number [facility] [address] [facility] Department [place] [address] * (ABNORMAL) Lipase (08/14/2024 5:55 PM CDT) Pathologist [facility] Lipase 302(H) 10 - 99 Units/L Blood Venous blood specimen / Unknown 08/14/2024 5:55 PM CDT 08/14/2024 6:01 PM CDT us Levi Dasilva DO LAB BLOOD ORDERABLES Final Result Performing Organization Address City/[facility]/ZIP Co de Phone Number [facility] [address] [facility] Department [place] [address] * (ABNORMAL) Comprehensive metabolic panel (08/14/2024 5:55 PM CDT) Pathologist [facility] Sodium 134(L) 135 - 145 mmol/L Potassium, pl 3.3 3.3 - 4.9 mmol/L [facility] Chloride 100 97 - 110 mmol/L [facility] CO2 26 22 - 32 mmol/L [facility] Anion gap 8 2 - 15 mmol/L [facility] BUN 5(L) 6 - 25 mg/dL [facility] Creatinine 0.50(L) 0.60 - 1.10 mg/dL [facility] Glucose 145 70 - 199 mg/dL [facility] Comment: Interpretive Data Fasting glucose >/= 126 mg/dl is diagnostic for diabetes. Fasting is defined as no caloric intake for at least 8 hours. Fasting glucose between 100 mg/dl to 125 mg/dl is diagnostic of prediabetes. In a patient with classic symptoms of hyperglycemia or hyperglycemic crisis, a random glucose >/= 200 mg/dl is diagnostic for diabetes. In the absence of unequivocal hyperglycemia, results should be confirmed by repeat testing. The classification and Diagnosis of Diabetes Diabetes Care 202; 46: S19-S40. Current interpretive data was last revised 2022. Calcium 8.3(L) 8.5 - 10.3 mg/dL [facility] Bilirubin, total 0.4 0.1 - 1.2 mg/dL [facility] Protein, pl 5.9(L) 6.5 - 8.5 g/dL [facility] Albumin 3.6 3.5 - 5.0 g/dL [facility] Alk phos 106 40 - 130 Units/L [facility] ALT 29 7 - 45 Units/L [facility] AST 34 10 - 45 Units/L [facility] Blood 08/14/2024 5:55 PM CDT 08/14/2024 6:01 PM CDT Levi Dasilva DO LAB BLOOD ORDERABLES Final Result [facility] [address] Department of Laboratories [place], [place] [id number] * Hepatitis C antibody Blood (04/25/2024 1:44 PM INSIDE SALES LEAD) Hep C Ab Nonreactive Nonreactive Comment:Antibodies to HCV no t detected. Does NOT exclude the possibility of recent exposure to HCV. Current interpretive data was last revised on 21 Blood 04/25/2024 1:44 PM INSIDE SALES LEAD 04/25/2024 4:36 PM INSIDE SALES LEAD us Jose Barrera MD LAB MICROBIOLOGY - GENER AL ORDERABLES Final Result [facility] Department [place] [address] from Last 3 Months or Most Recently Relevant to Health Maintenance Insurance [employer] EXCHANGE [employer]ANGE [employer]ANGE Advance Directives For more information, please contact: [phone] * Full Code (Latest Code Status on [...] 10:16 AM 08/13/2022 7:12 PM Care Teams Sales Operations Associate Relationship Specialty Start Date End Date Gurpreet Fleming MD [address] [place] [id number] PCP - General Family Medicine 09/05/23 Family Care, Progressive [address] [facility] 08/13/22 Miscellaneous, Not In File 12/29/22 Gurpreet Shirley MD Emergency Medicine 09/05/23
--- OUTSIDE RECORDS SUMMARY | 2024-08-22 20:26 | XMS_ITS | Encounter Summary ---
Author Organization [facility] Address [address] [place] [address] Care Team Providers Care Mortgage Loan Coordinator Name Role Phone Elen Kong MD Primary Care Provider [phone] Encounter Details Date Type Department Care Team (Late st Contact Info) Description 08/30/2006 Outpatient Historical [facility] Internal Medicine - [facility] [address] [address] 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
--- OUTSIDE RECORDS SUMMARY | 2024-08-22 20:26 | XMS_ITS | Encounter Summary ---
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 ALTERNATIVE PHONE NUMBER: [phone] WHO CALLED: CURRENT ALLERGY LIST: COLD TABLETS -OTC [facility] NUMBER: [facility] [phone] call father OTHER INFORMATION: Patient is not currently . Patient is not currently nursing.pt is on BCP PROBLEMS: Madelin is being released from [facility] on Tuesday- SECTION 1: REQUESTED ACTION [...] documented as of this encounter Care Teams Clinical Therapist Relationship Specialty Start Date End Date Elen Kong MD [address] [place] [address] [address] [place] [address] PCP - General Internal Medicine 07/21/17 11/13/18 documented as of this encounter
--- OUTSIDE RECORDS SUMMARY | 2024-08-22 20:26 | XMS_ITS | Encounter Summary ---
Author Organization [facility] Address [address] [place] [address] Care Team Providers Care Supercharge Repair Supervisor Name Role Phone Elen Kong MD Primary Care Provider [phone] Encounter Details Date Type Department Care Team (Late st Contact Info) Description 12/10/2008 Outpatient Historical [facility], [address] Mary Camacho MD [address] [place] [address] [email or web address] [address] Urinary Tract Infection, Site not Specified Social History Tobacco Use Types Packs/Day Years Used Date Smoking Tobacco: Never Alcohol Use Standard Drinks/Week Comments Not Asked 0 (1 standard drink = 0.6 oz pur e alcohol) Comments No Sex and Gender Information Value Date Recorded Sex Assigned at Not on file Legal Sex Female 4:05 AM 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
--- OUTSIDE RECORDS SUMMARY | 2024-08-22 20:26 | XMS_ITS | Encounter Summary ---
Author Organization [facility] Address [address] [place] [address] Care Team Providers Care Blood Tester Fowl Name Role Phone Elen Kong MD Primary Care Provider [phone] Encounter Details Date Type Department Care Team (Late st Contact Info) Description 11/08/1997 Outpatient Historical [facility] Internal Medicine - [facility] [address] [address] [facility] [address] [place] [address] Mary Camacho MD Social History Tobacco Use Types Packs/Day Years Used Date Smoking Tobacco: Never Assessed Comments Unknown Sex and Gender Information Value Date Recorded Sex Assigned at Not on file Legal Sex Female 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
--- OUTSIDE RECORDS SUMMARY | 2024-08-22 20:26 | XMS_ITS | Encounter Summary ---
Author Organization [facility] Address [address] [place] [address] Care Team Providers Care Audio Visual Aids Director Name Role Phone Elen Kong MD Primary Care Provider Encounter Details Date Type Department Care Team (Late st Contact Info) Description 02/19/1998 Outpatient Historical [facility] Internal Medicine - [facility] [address] [address] [facility] [address] [place] [address] Mary Camacho MD Social History Tobacco Use Types Packs/Day Years Used Date Smoking Tobacco: Never Assessed Comments Unknown Sex and Gender Information Value Date Recorded Sex Assigned at Not on file Legal Sex Female 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
--- OUTSIDE RECORDS SUMMARY | 2024-08-22 20:26 | XMS_ITS | Encounter Summary ---
Author Organization [facility] Address [address] [place] [address] Care Team Providers Care Personal Security Specialist Name Role Phone Elen Kong MD Primary Care Provider [phone] Encounter Details Date Type Department Care Team (Late st Contact Info) Description 11/22/1997 Outpatient Historical [facility] Internal Medicine - [facility] [address] [address] [facility] [address] [place] [address] Mary Camacho MD Social History Tobacco Use Types Packs/Day Years Used Date Smoking Tobacco: Never Assessed Comments Unknown Sex and Gender Information Value Date Recorded Sex Assigned at Not on file Legal Sex Female 4:05 AM ELEVATOR TENDER Gender Identity Not on file Sexual Orientation [...] documented as of this encounter Care Teams Personal Security Specialist Relationship Specialty Start Date End Date Elen Kong MD [address] [facility] [address] [place] [address] PCP - General Internal Medicine 07/21/17 11/13/18 documented as of this encounter
--- OUTSIDE RECORDS SUMMARY | 2024-08-22 20:26 | XMS_ITS | Encounter Summary ---
Author Organization [facility] Address [address] [place] [address] Care Team Providers Care Glue Line Operator Name Role Phone Elen Kong MD Primary Care Provider [phone] Encounter Details Date Type Department Care Team (Late st Contact Info) Description 04/14/2001 Outpatient Historical [facility] Internal Medicine - 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 [address] [place] [address] PCP - General Internal Medicine 07/21/17 11/13/18 documented as of this encounter
--- OUTSIDE RECORDS SUMMARY | 2024-08-22 20:26 | XMS_ITS | Referral Summary ---
Author Organization [facility] Address [address] [place] [address] Care Team Providers Care Editor City Name Role Phone Family Care, Progressive Unavailable [phone] Miscellaneous, Not In File Unavailable Unava ilable Gurpreet Shirley MD Unavailable [phone] Gurpreet Fleming MD Primary Care Provider [phone] Encounters Date Type Department Care Team Description 08/14/2024 5:21 PM CDT - 08/14/2024 10:26 PM CDT Emergency [facility] Emergency Department [address] [place] [address] Alcohol-induced acute pancreatitis without infection or necrosis (Primary Dx) Discharge Disposition: Discharge to psych hospital or psych unit from Last 3 Months Allergies Active Allergy Reactions Criticality Noted Date Comments Amoxicillin Itching,Rash Medium 02/21/2023 Diphenhydramine Unknown 03/30/2018 Fluoxetine Itching Low 07/10/2024 Gabapentin Swelling Medium 06/30/2022 Levofloxacin Muscle pain,Other (S ee comments) Medium 01/03/2023 Feels like law is splitting [place] Citrate Nausea & Vomiting Low 08/14/2024 Medications [...] 2 (two) times a day 60 tablet 5 Active multivitamin with folic acid 400 mcg tabletIndications :Vitamin Deficiency Prevention Take 1 tablet by mouth daily 30 tablet 1 5 Active OLANZapine (ZyPREXA) 10 mg tabletIndications :Depression associated with Bipolar Disorder, Adjunct Take 1 tablet (10 mg total) by mouth nightly 30 tablet 5 Active cholecalciferol (VITAMIN D-3) 1,000 unit capsuleIndication s:Vitamin D Deficiency Take 1 capsule (1,000 Units total) by mouth daily 30 capsule 5 Active thiamine (VITAMIN B1) 100 mg tabletIndications :Thiamine Deficiency Take 1 tablet (100 mg total) by mouth daily 30 tablet 5 Active naltrexone microspheres (VIVITROL) 380 mg suspension,extend ed rel reconIndications: alcoholism Inject 380 mg into the muscle as instructed every 30 (thirty) days 5 Active Active Problems Problem Noted Date Diagnosed Date Unspecified mood disorder (NATHALY/BAD1/MDD/PTSD) Assessment & Plan (04/30/2024 6:56 PM MICROARRAY ANALYST): Patient initially presented to the ED with [...] baseline, remains perseverative on discharge, going to [facility] as soon as possible. Discussed with patient that she will need to bring her previously, recently, filled medications from home (including doxepin, BuSpar, olanzapine, added these to her discharge instructions) with her to [facility] or have her mother pick them up [...] use + has agreed to go to [facility] Alcohol withdrawal syndrome without complication 09/04/2023 Alcohol [...] 01/27/2021 Assessment & Plan (04/30/2024 6:52 PM MICROARRAY ANALYST): Patient states yes history of PTSD, with [...] Plan: - Librium 25 mg q24h - CIWA protocol - Ativan 2 mg for scores >8 - Ativan 4 mg for seizures - Regular diet - Folate, MV, Thiamine supplementation - Consults to 411 directory assistance operator, social work instructor, and nutrition - PT/OT to prevent deconditioning while inpatient - Fall/Seizure/Aspiration precautions - Zofran and Reglan PRN - Follow up with Dr. Cervantes and Dr. Melissa at discharge - Appointment with Dr. Melissa for 01/20 at 10:30 am - Interested in [facility] after discharge - Also interested in discharging with [facility] Assessment & Plan (04/30/2024 6:51 PM MICROARRAY ANALYST): Patient has a longstanding history of alcohol [...] Recommendations: - Please admit patient VOLUNTARY to [facility] or [facility] under Dr. Booker under standard suicide/elopement/assault precautions (continue these in the ED). - Voluntary paperwork signed, faxed to [facility], and placed in patient's physical chart. - Discussed with ED team and psychiatry internet marketer on-call, who are in agreement. - While [...] drink = 0.6 oz pur e alcohol) [facility] [employer] Answer Date Recorded In the past 12 months has e [employer], gas, oil, or water [employer] threatened to shut off services in your [...] week 04/25/2024 How often do you attend [facility] or adventist services? 1 to 4 times per year 04/25/2024 Do you belong to any clubs o r organizations such as yazdanism groups, unions, fraternal or athletic groups, or [...] and heating? Not hard at all 04/25/2024 [facility] - Occupational Stress Questionnaire Answer Date Recorded [...] Yes 04/25/2024 Housing Stability Vital Sign Answer Nraen e Recorded In the last 12 months, [...] place to sleep or slept in a care home (including now)? No 12/29/2022 Housing Stability Vital Sign Answer Naren e Recorded In the last 12 months, was t here a time when you were not able to pay the mortgage or rent on time? No 04/25/2024 In the past 12 months, how m any times have you moved where you were living? 1 04/25/2024 At any time in the past 12 m [facility], were you homeless or living in a care home (including now)? No 04/25/2024 Personal Safety Answer [...] 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, SHOTGUN SHELL ASSEMBLY MACHINE OPERATOR, KRUPA) 01/27/2021 Comments No Sex and Gender Information Value Date Recorded Sex Assigned at Not on file Legal Sex Female 10:48 PM MICROARRAY ANALYST Gender Identity Not on file Sexual Orientation [...] Mass Index 18.46 08/14/2024 5:25 PM CDT Functional Status * Are you deaf or do you have serious difficulty hearing? Answer Date of Assessment Author No 04/25/2024 4:11 PM MICROARRAY ANALYST Libra Goldjosé Barba, SHOTGUN SHELL ASSEMBLY MACHINE OPERATOR * Are you blind or do you have serious difficulty seeing, even when wearing glasses? Answer Date of Assessment Author No 04/25/2024 4:11 PM MICROARRAY ANALYST Gold Deborahjosé Luiia, SHOTGUN SHELL ASSEMBLY MACHINE OPERATOR * Do you have serious difficulty walking or climbing stairs? Answer Date of Assessment Author No 04/25/2024 4:11 PM VICTOR HUGO Gold Deborahjosé Liuia, SHOTGUN SHELL ASSEMBLY MACHINE OPERATOR * Do you have serious difficulty dressing or bathing? Answer Date of Assessment Author No 04/25/2024 4:11 PM VICTOR HUGO Colemantanisha Deborahjosé Liuia, SHOTGUN SHELL ASSEMBLY MACHINE OPERATOR * Because of a physical, mental, or emotional condition, do you have serious difficulty doing errandsalone such as visiting the doctor? Answer Date of Assessment Author No 04/25/2024 4:11 PM VICTOR HUGO Gold Deborahjosé Barba, SHOTGUN SHELL ASSEMBLY MACHINE OPERATOR Mental Status * Because of a physical, mental, or emotional condition, do you have serious difficulty concentrating, remembering, or making decisions? (5 years old or older) Answer Entry Date Author No 04/25/2024 4:11 PM MICROARRAY ANALYST Gold Deborahjosé Barba, SHOTGUN SHELL ASSEMBLY MACHINE OPERATOR Plan of Treatment Not on file Procedures [...] HEPATITIS C ANTIBODY Routine 04/25/2024 1:44 PM MICROARRAY ANALYST from Last 3 Months or Most Recently [...] POCT hCG, urine (08/14/2024 6:01 PM CDT) [facility] HCG, ur, POC Negative Negative Lot Number [id number] QC Backgroud Clear Acceptable QC Control Line Acceptable Urine 08/14/2024 6:01 PM CDT Levi Dasilva DO POINT OF CARE TEST ORDERAB LES Final Result * eGFR (08/14/2024 5:55 PM CDT) [facility] eGFR >90 >=60 mL/min/1. 73 m2 Comment: [...] Final Result [facility] [address] [facility] Department [place] [address] * Differential, auto (08/14/2024 5:55 PM CDT) Neutrophil abs 4.99 1.50 - 6.50 K/cumm Imm gran abs 0.01 0.00 - 0.10 K/cumm [facility] Lymphocyte abs 1.86 0.80 - 3.30 K/cumm [facility] Monocyte abs 0.69 0.20 - 0.80 K/cumm [facility] Eosinophil abs 0.04 0.00 - 0.50 K/cumm [facility] Basophil abs 0.03 0.00 - 0.10 K/cumm [facility] Neutrophil pct 65.5 % [facility] Comment: Interpretive Data Percent cell count reference ranges are not reported, since discordance with absolute values may lead to misinterpretation of CBC data. Current Interpretive Data was last revised on 2017. Imm gran pct 0.1 % [facility] Comment: Interpretive Data Percent cell count reference ranges are not reported, since discordance with absolute values may lead to misinterpretation of CBC data. Current Interpretive Data was last revised on 2017. Lymphocyte pct 24.4 % [facility] Comment: Interpretive Data Percent cell count reference ranges are not reported, since discordance with absolute values may lead to misinterpretation of CBC data. Current Interpretive Data was last revised on 2017. Monocyte pct 9.1 % [facility] Comment: Interpretive Data Percent cell count reference ranges are not reported, since discordance with absolute values may lead to misinterpretation of CBC data. Current Interpretive Data was last revised on 2017. Eosinophil pct 0.5 % [facility] Comment: Interpretive Data Percent cell count reference ranges are not reported, since discordance with absolute values may lead to misinterpretation of CBC data. Current Interpretive Data was last revised on 2017. Basophil pct 0.4 % [facility] Comment: Interpretive Data Percent cell count reference ranges are not reported, since discordance with absolute values may lead to misinterpretation of CBC data. Current Interpretive Data was last revised on 2017. Blood 08/14/2024 5:55 PM CDT 08/14/2024 6:01 PM CDT Levi Dasilva DO LAB BLOOD ORDERABLES Final Result [facility] [address] [facility] Department [place] [address] * (ABNORMAL) Urinalysis reflex to microscopic and culture Urine (08/14/2024 5:55 PM CDT) Color, ur Alma Yellow Clarity, ur Turbid(A) Clear [facility] Specific gravity, ur 1.022 1.003 - 1.030 [facility] pH, urine 6.0 [facility] Comment: Interpretive Data U rine pH is affected by diet, medications, systemic acid-base disturbances, and renal tubular function. pH may affect urinary stone formation. For example, urine pH below 6.0 may help reduce the tendency for calcium phosphate stones and pH greater than 6.0 may reduce the tendency for uric acid stone formation. Source: [facility] Current Interpretive Data was last revised on 2017 Protein, ur ql Negative Negative [facility] Glucose, ur ql Negative Negative [facility] Ketones, ur Negative Negative [facility] Bilirubin, ur Negative Negative [facility] Blood, ur Negative Negative [facility] Urobilinogen, ur <2.0 <2.0 mg/dL [facility] Nitrite, ur Negative Negative [facility] Leukocyte esterase, ur Negative Negative [facility] UA reflex comment Reflex conditions for microscopic UA and culture not met. [facility] Urine 08/14/2024 5:55 PM CDT 08/14/2024 6:01 PM CDT Levi Dasilva DO LAB MICROBIOLOGY - GENERAL ORDERABLES Final Result Performing Organization Address City/[facility]/ZIP Co de Phone Number [facility] [address] [facility] Department [place] [address] * (ABNORMAL) CBC with auto differential (08/14/2024 5:55 PM CDT) WBC 7.62 3.80 - 9.90 K/cumm Hgb 11.6(L) 11.9 - 15.5 g/dL [facility] Hct 34.1(L) 35.6 - 45.5 % [facility] Plt 183 150 - 400 K/cumm [facility] MPV 9.5 9.1 - 12.3 fL [facility] RBC 3.82(L) 3.90 - 5.20 M/cumm [facility] MCV 89.3 81.3 - 96.4 fL [facility] MCH 30.4 27.1 - 33.3 pg [facility] MCHC 34.0 32.3 - 35.7 g/dL [facility] RDW CV 13.3 11.1 - 14.9 % [facility] RDW SD 43.3 35.7 - 48.1 fL [facility] Blood Venous blood specimen / Unknown 08/14/2024 5:55 PM CDT 08/14/2024 6:01 PM CDT us Levi Dasilva DO LAB BLOOD ORDERABLES Final Result Performing Organization Address City/[facility]/ZIP Co de Phone Number [facility] [address] [facility] Department [place] [address] * (ABNORMAL) Lipase (08/14/2024 5:55 PM CDT) [facility] Lipase 302(H) 10 - 99 Units/L Blood Venous blood specimen / Unknown 08/14/2024 5:55 PM CDT 08/14/2024 6:01 PM CDT Levi Dasilva DO LAB BLOOD ORDERABLES Final Result Performing Organization Address City/[facility] Co de Phone Number [facility] [address] [facility] Department [place] [address] * (ABNORMAL) Comprehensive metabolic panel (08/14/2024 5:55 PM CDT) [facility] Sodium 134(L) 135 - 145 mmol/L Potassium, pl 3.3 3.3 - 4.9 mmol/L [facility] Chloride 100 97 - 110 mmol/L [facility] CO2 26 22 - 32 mmol/L [facility] Anion gap 8 2 - 15 mmol/L [...] 2022. Calcium 8.3(L) 8.5 - 10.3 mg/dL [facility] Bilirubin, total 0.4 0.1 - 1.2 mg/dL [facility] Protein, pl 5.9(L) 6.5 - 8.5 g/dL [facility] Albumin 3.6 3.5 - 5.0 g/dL [facility] Alk phos 106 40 - 130 Units/L [facility] ALT 29 7 - 45 Units/L [facility] AST 34 10 - 45 Units/L [facility] Blood 08/14/2024 5:55 PM CDT 08/14/2024 6:01 PM CDT Levi Dasilva DO LAB BLOOD ORDERABLES Final Result [facility] [address] Department [place] [address] * Hepatitis C antibody Blood (04/25/2024 1:44 PM MICROARRAY ANALYST) Hep C Ab Nonreactive Nonreactive Comment:Antibodies to HCV no t detected. Does NOT exclude the possibility of recent exposure to HCV. Current interpretive data was last revised on 21 Blood 04/25/2024 1:44 PM MICROARRAY ANALYST 04/25/2024 4:36 PM MICROARRAY ANALYST Jose Barrera MD LAB MICROBIOLOGY - GENER AL ORDERABLES Final Result [facility] Department [place] [address] from Last 3 Months or Most Recently Relevant to Health Maintenance Insurance [employer] EXCHANGE [employer] Advance Directives For more information, please contact: [phone] * Full Code (Latest Code Status on [...] 10:16 AM 08/13/2022 7:12 PM Care Teams Editor City Relationship Specialty Start Date End Date Gurpreet Fleming MD [address] [place] [address] PCP - General Family Medicine 09/05/23 Family Care, Progressive [address] [facility] 08/13/22 Miscellaneous, Not In File 12/29/22 Gurpreet Shirley MD Emergency Medicine 09/05/23
--- OUTSIDE RECORDS SUMMARY | 2024-08-22 20:26 | XMS_ITS | Encounter Summary ---
Author Organization [facility] Address [address] [place] [address] Care Team Providers Care Reel Worker Name Role Phone Elen Kong MD Primary Care Provider [phone] Encounter Details Date Type Department Care Team (Late st Contact Info) Description 03/24/2007 Outpatient Historical [facility] Internal Medicine - [facility] [address] [address] [facility] [address] [place] [address] Mary Camacho MD Social History Tobacco Use Types Packs/Day Years Used Date Smoking Tobacco: Never Assessed Comments Unknown Sex and Gender Information Value Date Recorded Sex Assigned at Not on file Legal Sex Female 4:05 AM AUTO BODY CUSTOMIZER Gender Identity Not on file Sexual Orientation [...] documented as of this encounter Care Teams Reel Worker Relationship Specialty Start Date End Date Elen Kong MD [address] [place] [address] PCP - General Internal Medicine 07/21/17 11/13/18 documented as of this encounter
--- OUTSIDE RECORDS SUMMARY | 2024-08-22 20:26 | XMS_ITS | Encounter Summary ---
Author Organization [facility] Address [address] [place] [address] Care Team Providers Care Field Attendant Name Role Phone Elen Kong MD Primary Care Provider Encounter Details Date Type Department Care Team (Late st Contact Info) Description 01/12/2007 Outpatient Historical [facility] Internal Medicine - [facility] [address] [id number] [facility] [address] [place] [address] Mary Camacho MD Social History Tobacco Use Types Packs/Day Years Used Date Smoking Tobacco: Never Assessed Comments Unknown Sex and Gender Information Value Date Recorded Sex Assigned at Not on file Legal Sex Female 4:05 AM LOCOMOTIVE ENGINEER Gender Identity Not on file Sexual [...] documented as of this encounter Care Teams Field Attendant Relationship Specialty Start Date End Date Elen Kong MD [address] [facility] [address] [place] [phone] PCP - General Internal Medicine 07/21/17 11/13/18 documented as of this encounter
--- OUTSIDE RECORDS SUMMARY | 2024-08-22 20:26 | XMS_ITS | Encounter Summary ---
Author Organization [facility] Address [address] [place] [address] Care Team Providers Care Asset Liability Analyst Name Role Phone Elen Kong MD Primary Care Provider [phone] Encounter Details Date Type Department Care Team (Late st Contact Info) Description 07/14/2007 Orders Only [facility] Internal Medicine - [facility] [address] [address] [facility] [address] [place] [address] Delia Murphy, ANP [address] [facility] [address] [place] [address] Social History Tobacco Use Types Packs/Day Years Used Date Smoking Tobacco: Never Assessed Comments Unknown Sex and Gender Information Value Date Recorded Sex Assigned at Not on file Legal Sex Female 4:05 AM CHIEF JUVENILE PROBATION OFFICER Gender Identity Not on file Sexual Orientation [...] documented as of this encounter Care Teams Asset Liability Analyst Relationship Specialty Start Date End Date Elen Kong MD [address] [facility] [address] [place] [address] PCP - General Internal Medicine 07/21/17 11/13/18 documented as of this encounter
--- OUTSIDE RECORDS SUMMARY | 2024-08-22 20:26 | XMS_ITS | Encounter Summary ---
Author Organization [facility] Address [address] [place] [address] Care Team Providers Care Pbx Inspector Name Role Phone Elen Kong MD Primary Care Provider [phone] Encounter Details Date Type Department Care Team (Late st Contact Info) Description 07/26/2007 Outpatient Historical [facility] Internal Medicine - [facility] [address] [address] [facility] [address] [place] [address] Mary Camacho MD Social History Tobacco Use Types Packs/Day Years Used Date Smoking Tobacco: Never Assessed Comments Unknown Sex and Gender Information Value Date Recorded Sex Assigned at Not on file Legal Sex Female 4:05 AM STAFF RESEARCH ASSOCIATE Gender Identity Not on file Sexual Orientation [...] documented as of this encounter Care Teams Pbx Inspector Relationship Specialty Start Date End Date Elen Kong MD [address] [facility] [address] [place] [address] PCP - General Internal Medicine 07/21/17 11/13/18 documented as of this encounter
--- OUTSIDE RECORDS SUMMARY | 2024-08-22 20:26 | XMS_ITS | Encounter Summary ---
Author Organization [facility] Address [address] [place] [address] Care Team Providers Care Chandelier Maker Name Role Phone Elen Kong MD Primary Care Provider [phone] Encounter Details Date Type Department Care Team (Late st Contact Info) Description 01/12/2007 Orders Only [facility] Internal Medicine - [facility] [address] [address] [facility] [address] [place] [address] Delia Murphy, ANP [address] [place] [address] Social History Tobacco Use Types Packs/Day Years Used Date Smoking Tobacco: Never Assessed Comments Unknown Sex and Gender Information Value Date Recorded Sex Assigned at Not on file Legal Sex Female 4:05 AM DECKHAND MAINTENANCE Gender Identity Not on file Sexual Orientation [...] NEW PRESCRIPTION, 01/12/2007. LAB ORDERS: Order number: [id number] Test Ordered: HEPATIC FUNCTION PANEL 1293 381.81-NONSUPPURATIVE [...] documented as of this encounter Care Teams Chandelier Maker Relationship Specialty Start Date End Date Elen Kong MD [address] [facility] [address] [place] [address] PCP - General Internal Medicine 07/21/17 11/13/18 documented as of this encounter
--- OUTSIDE RECORDS SUMMARY | 2024-08-22 20:26 | XMS_ITS | Clinical Summary ---
Author Organization [facility] Address [address] [address] Care Team Providers Care Slicing Machine Operator/Tender Name Role Phone Unknown, Provider Unavailable Unavailable Bryn Cervantes MD Primary Care Provider [phone] Source Comments [facility],non-owned Affiliates and Associated Physician Practices is amultiple site organization consisting of ambulatory clinics and hospital sitesin [place], [place], [place] and [place]. This disclosure is being madepursuant to the Care Everywhere program and may not contain all information available regarding this patient. Last updated 18.[facility] Allergies Active Allergy Reactions Criticality Noted Date Comments Amoxicillin Itching 02/21/2023 Amphetamine-Dextroamphetam ine 03/26/2015 Prescription drug abuse, medical non-compliance Bupropion Seizures High 10/12/20132010, 2014 Tolerating SR 150 mg dose per psych 2016. Dextromethorphan Hbr Other 09/30/2006 Escitalopram Itching 07/09/2020 Note: Itching Gabapentin Swelling Medium 06/30/2022 Levofloxacin Angioedema High 08/23/2016 Levofloxacin 08/28/2013 Wyola Nausea and/or Vomiting Low 04/17/2014 Codeine 03/26/2015 [...] but this has not been confirmed with [facility] records - No outpatient psych meds per [facility] chart and providers - Follow up as outpatient Assessment & Plan (01/10/2020 1:32 PM CDT): Patient with several diagnoses on problem list including depression, anxiety, and bipolar I disorder. She states that she is not taking any medication but this has not been confirmed with [facility] records - Check [facility] med list - Talk with Dr. Lombardi [...] Folate, MV, Thiamine supplementation - Consults to hadoop administrator, social organization professor, and nutrition - PT/OT to prevent [...] CDT): - Librium 25 mg q24h - CIIA protocol - Ativan 2 mg for scores >8 - Ativan 4 mg for seizures - Regular diet - Folate, MV, Thiamine supplementation - Consults to hadoop administrator, social organization professor, and nutrition - PT/OT to prevent [...] CDT): - Librium 25 mg q12h - CIIA protocol - Ativan 2 mg for scores >8 - Ativan 4 mg for seizures - Regular diet - Folate, MV, Thiamine supplementation - Consults to hadoop administrator, social organization professor, and nutrition - PT/OT to prevent deconditioning while inpatient - Fall/Seizure/Aspiration precautions - Zofran and Reglan PRN - Follow up with Dr. Cervantes and Dr. Melissa at discharge - Interested in [facility] after discharge - Also interested in discharging with Acamprosate Assessment & Plan (01/14/2020 12:56 PM CDT): - Librium 25 mg q8h -- no changes today - CIIA protocol - Ativan 2 mg for scores >8 - Ativan 4 mg for seizures - Discontinue telemetry - Regular diet - Folate, MV, Thiamine supplementation - Consults to hadoop administrator, social organization professor, and nutrition - PT/OT to prevent [...] Folate, MV, Thiamine supplementation - Consults to hadoop administrator, social organization professor, and nutrition - PT/OT to prevent [...] Folate, MV, Thiamine supplementation - Consults to hadoop administrator, social organization professor, and nutrition - PT/OT to prevent [...] Folate, MV, Thiamine supplementation - Consults to hadoop administrator, social organization professor, and nutrition - PT/OT to prevent [...] Folate, MV, Thiamine supplementation - Consults to hadoop administrator, social organization professor, and nutrition - PT/OT to prevent [...] DTaP VACCINE IM (6wk-6yrs) 01/23/2006 INFLUENZA A K1G1-52 VACCINE 01/14/2014 INFLUENZA P3T3-49, HISTORIC VACCINE 01/14/2014 INFLUENZA VACCINE 02/10/2021,01/22/2019,02/17/20 13 [...] medical care, and heating? Very hard 07/08/2024 [facility] [place] of Occupat ional Health - Occupational Stress [...] any time in the past [address] [facility], were you homeless or living in a long term (including now)? Yes 07/08/2024 Comments No Sex [...] Reactive Non Reactive 07/10/2024 9:28 AM CDT [facility] Comment: No Laboratory evidence of syphilis infection. Note: Circulating antibodies may be low or undetectable in early infection. If recent exposure is suspected, re-draw sample in 2-4 weeks and repeat testing. Blood BLOOD SPECIMEN / Unknown Venipuncture / Unknown 07/10/2024 8:34 AM CDT 07/10/2024 8:38 AM CDT [facility] LAB - SEROLOGY ORDERABLES Final Result [facility] [address] [place] [address] * T4 FREE DIRECT REFLEXED (07/10/2024 8:34 AM CDT) T4 Free 1.01 0.70 - 1.50 ng/dL 07/10/2024 9:57 AM CDT [facility] Blood BLOOD SPECIMEN / Unknown Venipuncture / Unknown 07/10/2024 8:34 AM CDT 07/10/2024 8:38 AM CDT Uzair Soliz [facility] LAB - CHEMISTRY ORDERABLE S Final Result Performing Organization Address [facility]/ZIP Co de Phone Number [facility] [id number] [place] [address] * (ABNORMAL) TSH REFLEX FREE T4 (07/10/2024 8:34 AM CDT) TSH 0.227(L) 0.350 - 4.940 uIU/mL 07/10/2024 9:27 AM CDT [facility] Blood BLOOD SPECIMEN / Unknown Venipuncture / Unknown 07/10/2024 8:34 AM CDT 07/10/2024 8:38 AM CDT [facility] - CHEMISTRY ORDERABLE S Final Result Performing Organization Address [facility] Co de Phone Number [facility] [address] [place] [address] * HEMOGLOBIN A1C (07/10/2024 8:34 AM CDT) Hemoglobin A1c 5.1 <5.7 % 07/10/2024 9:00 AM CDT [facility] Estimated Average Glucose 100 mg/dL 07/10/2024 9:00 AM CDT [facility] Blood BLOOD SPECIMEN / Unknown Venipuncture / Unknown 07/10/2024 8:34 AM CDT 07/10/2024 8:38 AM CDT Narrative [facility] - 07/10/2024 9:00 AM CDT [...] (HbF) exceeds 5% in the specimen. The Linkoverynity assay for the measurement of HbA1c is a National Glycohemoglobin Standardization Program (NGSP) certified method. Uzair Soliz APRN-GLOBAL DIRECTOR [facility] [employer] LAB - CHEMISTRY ORDERABLE S Final Result [facility] [address] [place] [address] * CBC W AUTO DIFFERENTIAL (07/10/2024 8:34 AM CDT) WBC 5.0 4.0 - 10.7 x10E9/L 07/10/2024 8:42 AM CDT [facility] RBC Count 4.51 3.90 - 5.20 x10E12/L 07/10/2024 8:42 AM CDT [facility] Hemoglobin 13.5 11.9 - 15.8 g/dL 07/10/2024 8:42 AM CDT [facility] Hematocrit 40.3 34.8 - 46.1 % 07/10/2024 8:42 AM CDT [facility] MCV 89.4 80.0 - 98.0 fL 07/10/2024 8:42 AM CDT [facility] MCH 29.9 26.7 - 33.6 pg 07/10/2024 8:42 AM CDT [facility] MCHC 33.5 31.7 - 36.3 g/dL 07/10/2024 8:42 AM CDT [facility] RDW-CV 13.3 11.3 - 14.8 % 07/10/2024 8:42 AM CDT [facility] Platelet Count 262 150 - 420 x10E9/L 07/10/2024 8:42 AM CDT [facility] MPV 9.4 7.8 - 11.4 fL 07/10/2024 8:42 AM CDT [facility] Neutrophil % 47.2 41.0 - 74.0 % 07/10/2024 8:42 AM CDT [facility] Lymphocyte % 38.6 17.0 - 47.0 % 07/10/2024 8:42 AM CDT [facility] Monocyte % 9.8 3.0 - 11.0 % 07/10/2024 8:42 AM CDT [facility] Eosinophil % 3.4 0.0 - 7.0 % 07/10/2024 8:42 AM CDT [facility] Basophil % 1.0 0.0 - 1.6 % 07/10/2024 8:42 AM CDT [facility] Immature Granulocytes % 0.0 0.0 - 1.0 % 07/10/2024 8:42 AM CDT [facility] Neutrophil Absolute 2.35 1.60 - 7.50 x10E9/L 07/10/2024 8:42 AM CDT [facility] Lymphocyte Absolute 1.92 1.00 - 4.40 x10E9/L 07/10/2024 8:42 AM CDT [facility] Monocyte Absolute 0.49 0.15 - 1.00 x10E9/L 07/10/2024 8:42 AM CDT [facility] Eosinophil Absolute 0.17 0.00 - 0.60 x10E9/L 07/10/2024 8:42 AM CDT [facility] Basophil Absolute 0.05 0.00 - 0.13 x10E9/L 07/10/2024 8:42 AM CDT [facility] Blood BLOOD SPECIMEN / Unknown Venipuncture / Unknown 07/10/2024 8:34 AM CDT 07/10/2024 8:38 AM CDT us Uzair Soliz WASHER OPERATOR-GLOBAL DIRECTOR [employer] [facility] LAB - HEMATOLOGY ORDERABL ES Final Result [facility] [address] [place] [address] * (ABNORMAL) COMPREHENSIVE METABOLIC PANEL (07/10/2024 8:34 AM CDT) Glucose 124(H) 70 - 99 mg/dL 07/10/2024 9:11 AM CDT [facility] Sodium 139 136 - 145 mmol/L 07/10/2024 9:11 AM CDT [facility] Potassium 3.6 3.5 - 5.1 mmol/L 07/10/2024 9:11 AM CDT [facility] Chloride 106 98 - 107 mmol/L 07/10/2024 9:11 AM CDT [facility] CO2 30(H) 22 - 29 mmol/L 07/10/2024 9:11 AM CDT [facility] Calcium 8.8 8.4 - 10.4 mg/dL 07/10/2024 9:11 AM CDT [facility] Anion Gap 3(L) 6 - 16 mmol/L 07/10/2024 9:11 AM CDT [facility] BUN 8 5.3 - 18.7 mg/dL 07/10/2024 9:11 AM CDT [facility] Creatinine 0.70 0.57 - 1.11 mg/dL 07/10/2024 9:11 AM CDT [facility] Alkaline Phosphatase 105 40 - 150 U/L 07/10/2024 9:11 AM CDT [facility] ALT 19 6 - 57 U/L 07/10/2024 9:11 AM CDT [facility] AST 35 10 - 48 U/L 07/10/2024 9:11 AM T [facility] Protein Total 6.9 6.4 - 8.3 gm/dL 07/10/2024 9:11 AM CDT [facility] Albumin 3.7 3.4 - 5.0 gm/dL 07/10/2024 9:11 AM CDT [facility] Bilirubin Total 0.5 0.2 - 1.2 mg/dL 07/10/2024 9:11 AM CDT [facility] eGFR by CKD-EPI >90 >=90 mL/min/1.7 3 m2 07/10/2024 9:11 AM CDT [facility] Blood BLOOD SPECIMEN / Unknown Venipuncture / Unknown 07/10/2024 8:34 AM CDT 07/10/2024 8:38 AM CDT [facility]zair Soliz [facility] LAB - CHEMISTRY ORDERABLE S Final Result Performing Organization Address [facility] Co de Phone Number [facility] [address] [place], [place] [id number] * LIPID PROFILE (07/10/2024 8:34 AM CDT) Cholesterol 170 <200 mg/dL 07/10/2024 9:11 AM CDT [facility] Triglycerides 88 <150 mg/dL 07/10/2024 9:11 AM CDT [facility] HDL Cholesterol 57 >40 mg/dL 9:11 AM CDT [facility] LDL Calculated 95 <130 mg/dL 07/10/2024 9:11 AM CDT [facility] VLDL Calculated 18 <=30 mg/dL 9:11 AM CDT [facility] Chol HDL Ratio 3.0 <4.5 07/10/2024 9:11 AM CDT [facility] LDL/HDL Ratio 1.7 <5.0 07/10/2024 9:11 AM CDT [facility] Blood BLOOD SPECIMEN / Unknown Venipuncture / Unknown 07/10/2024 8:34 AM CDT 07/10/2024 8:38 AM CDT us Uzair Soliz [facility] LAB - CHEMISTRY ORDERABLE S Final Result Performing Organization Address [facility] de Phone Number [facility] [address] [place] [address] * (ABNORMAL) URINALYSIS REFLEX TO MICROSCOPIC NO CULTURE (07/09/2024 6:43 PM CDT) Color UA Colorless(A ) Yellow, Straw 07/09/2024 7:05 PM CDT [facility] Clarity UA Clear Clear 07/09/2024 7:05 PM CDT [facility] Glucose UA Normal Normal 07/09/2024 7:05 PM CDT [facility] Bilirubin UA Negative Negative 07/09/2024 7:05 PM CDT [facility] Ketone UA Negative Negative 07/09/2024 7:05 PM CDT [facility] Specific Garfield UA <1.005(L) 1.005 - 1.030 07/09/2024 7:05 PM CDT [facility] Blood UA Negative Negative 07/09/2024 7:05 PM CDT [facility] pH UA 7.0 5.0 - 9.0 pH 07/09/2024 7:05 PM CDT [facility] Protein UA Negative Negative 07/09/2024 7:05 PM CDT [facility] Urobilinogen UA Normal Normal mg/dL 07/09/2024 7:05 PM CDT [facility] Nitrite UA Negative Negative 07/09/2024 7:05 PM CDT [facility] Leukocyte UA Negative Negative 07/09/2024 7:05 PM CDT [facility] Urine URINE SPECIMEN OBTAINED BY CLEAN CATCH PROCEDURE / Unknown Collection / Unknown 07/09/2024 6:43 PM CDT 07/09/2024 6:53 PM CDT Narrative [facility] - 07/09/2024 7:05 PM CDT us Uzair Soliz WASHER OPERATOR-GLOBAL DIRECTOR [employer] LAB - URINALYSIS ORDERABL ES Final Result Performing Organization Address City/[facility] Co de Phone Number [facility] [address] [place] [address] * HCG URINE QUALITATIVE (07/09/2024 6:43 PM CDT) Pathologist [facility] hCG Qualitative Urine Negative Negative 07/09/2024 7:06 PM CDT [facility] Urine URINE / Unknown Collection / Unknown 07/09/2024 6:43 PM CDT 07/09/2024 6:53 PM CDT Narrative [facility] - 07/09/2024 7:06 PM CDT Specimens containing human anti-mouse antibodies may exhibit false positive or false negative results. If qualitative interpretation is inconsistent with clinical evaluation, consider confirmation by an alternative hCG method. us Janna Mccain WASHER OPERATOR-GLOBAL DIRECTOR [employer] LAB - URINALYSIS ORDERAB LES Final Result Performing Organization Address City/[facility]/ZIP Co de Phone Number [facility] [address] [place] [address] * (ABNORMAL) URINE DRUG SCREEN IMMUNOASSAY (07/09/2024 6:43 PM CDT) Pathologist [facility] Amphetamines Screen Urine Not detected Not detected 07/09/2024 7:49 PM CDT [facility] Barbiturates Screen Urine Not detected Not detected 07/09/2024 7:49 PM CDT [facility] Benzodiazepines Screen Urine Not detected Not detected 07/09/2024 7:49 PM CDT [facility] Cannabinoids Screen Urine Detected(A) Not detected 07/09/2024 7:49 PM CDT [facility] Cocaine Screen Urine Not detected Not detected 07/09/2024 7:49 PM CDT [facility] Fentanyl Urine Not detected Not detected 07/09/2024 7:49 PM CDT [facility] Methadone Screen Urine Not detected Not detected 07/09/2024 7:49 PM CDT [facility] Opiate Screen Urine Not detected Not detected 07/09/2024 7:49 PM CDT [facility] Phencyclidine Screen Urine Not detected Not detected 07/09/2024 7:49 PM CDT [facility] Urine URINE / Unknown Collection / Unknown 07/09/2024 6:43 PM CDT 07/09/2024 6:53 PM CDT Narrative [facility] - 07/09/2024 7:49 PM CDT [...] 300 ng/mL PHENCYCLIDINE(PCP) 25 ng/mL Uzair Soliz WASHER OPERATOR-GLOBAL DIRECTOR [employer] LAB - URINE CHEMISTRY ORD ERABLES Final Result [facility] [address] [place] [address] * HIV-1 HIV-2 ANTIBODY + HIV P24 AG PANEL (01/13/2021 11:16 PM CDT) HIV1/2 Ab + P24 Ag Non Reactive Non Reactive 01/14/2021 12:08 AM CDT [facility] Blood BLOOD SPECIMEN / Unknown Venipuncture / Unknown 01/13/2021 11:16 PM CDT 01/13/2021 11:26 PM CDT Narrative [facility] - 01/14/2021 12:08 AM CDT No Laboratory evidence of HIV infection. Gary Olguin MD LAB - CHEMISTRY ORDERA BLES Final Result Performing Organization Address City/State/[facility] Co de Phone Number [facility] [address] [place], [place] [phone] from Last 3 Months or Most Recently [...] 11:34 PM 12/25/2020 1:10 PM Care Teams Slicing Machine Operator/Tender Relationship Specialty Start Date End Date Bryn Cervantes MD PCP - General 09/28/21 Unknown, Provider 08/23/16
--- OUTSIDE RECORDS SUMMARY | 2024-08-22 20:26 | XMS_ITS | Encounter Summary ---
Author Organization [facility] Address [address] [place] [address] Care Team Providers Care Dance Costume Designer Name Role Phone Elen Kong MD Primary Care Provider [phone] Encounter Details Date Type Department Care Team (Late st Contact Info) Description 06/18/1998 Outpatient Historical [facility] Internal Medicine - [facility] [address] [address] [facility] [address] [place] [address] Mary Camacho MD Social History Tobacco Use Types Packs/Day Years Used Date Smoking Tobacco: Never Assessed Comments Unknown Sex and Gender Information Value Date Recorded Sex Assigned at Not on file Legal Sex Female 4:05 AM ORDNANCE OFFICER Gender Identity Not on file Sexual [...] documented as of this encounter Care Teams Dance Costume Designer Relationship Specialty Start Date End Date Elen Kong MD [address] [facility] [address] [place] [address] PCP - General Internal Medicine 07/21/17 11/13/18 documented as of this encounter
--- OUTSIDE RECORDS SUMMARY | 2024-08-22 20:26 | XMS_ITS | Encounter Summary ---
Author Organization [facility] Address [address] [place] [address] Care Team Providers Care Zipper Measurer Name Role Phone Elen Kong MD Primary Care Provider [phone] Encounter Details Date Type Department Care Team (Late st Contact Info) Description 07/09/1998 Outpatient Historical [facility] Internal Medicine - [facility] [address] [address] [facility] [address] [place] [address] Mary Camacho MD Social History Tobacco Use Types Packs/Day Years Used Date Smoking Tobacco: Never Assessed Comments Unknown Sex and Gender Information Value Date Recorded Sex Assigned at Not on file Legal Sex Female 4:05 AM TAPING MACHINE OPERATOR Gender Identity Not on file Sexual [...] documented as of this encounter Care Teams Zipper Measurer Relationship Specialty Start Date End Date Elen Kong MD [address] [facility] [address] [place] [address] PCP - General Internal Medicine 07/21/17 11/13/18 documented as of this encounter
--- OUTSIDE RECORDS SUMMARY | 2024-08-22 20:26 | XMS_ITS | Encounter Summary ---
Author Organization [facility] Address [address] [place] [address] Care Team Providers Care Networking Technician Name Role Phone Elen Kong MD Primary Care Provider [phone] Encounter Details Date Type Department Care Team (Late st Contact Info) Description 07/07/2007 Outpatient Historical [facility] Internal Medicine - [facility] [address] [address] [facility] [address] [place] [address] Mary Camacho MD Social History Tobacco Use Types Packs/Day Years Used Date Smoking Tobacco: Never Assessed Comments Unknown Sex and Gender Information Value Date Recorded Sex Assigned at Not on file Legal Sex Female 4:05 AM BLACK TOP PAVER OPERATOR Gender Identity Not on file Sexual [...] documented as of this encounter Care Teams Networking Technician Relationship Specialty Start Date End Date Elen Kong MD [address] [facility] [address] [place] [address] PCP - General Internal Medicine 07/21/17 11/13/18 documented as of this encounter
--- OUTSIDE RECORDS SUMMARY | 2024-08-22 20:26 | XMS_ITS | Encounter Summary ---
Author Organization [facility] Address [address] [place] [address] Care Team Providers Care Aircraft Refueler Name Role Phone Elen Kong MD Primary Care Provider [phone] Encounter Details Date Type Department Care Team (Late st Contact Info) Description 09/26/2000 Outpatient Historical [facility] - [facility] [address] [id number] [facility] [address] [place] [address] Mary Camacho MD Social History Tobacco Use Types Packs/Day Years Used Date Smoking Tobacco: Never Assessed Comments Unknown Sex and Gender Information Value Date Recorded Sex Assigned at Not on file Legal Sex Female 4:05 AM FOREIGN EXCHANGE SERVICES MANAGER Gender Identity Not on file Sexual [...] documented as of this encounter Care Teams Aircraft Refueler Relationship Specialty Start Date End Date Elen Kong MD [address] [facility] [address] [place] [address] PCP - General Internal Medicine 07/21/17 11/13/18 documented as of this encounter
--- OUTSIDE RECORDS SUMMARY | 2024-08-22 20:26 | XMS_ITS | Encounter Summary ---
Author Organization [facility] Address [address] [place] [address] Care Team Providers Care Oceanographic Meteorologist Name Role Phone Unavailable Primary Care Provider Unavailabl e Reason for Visit * Reason Onset Date Comments Alcohol Problem 10/04/2019 Spoke germain/Tayo corcoran d patient is on list Encounter Details Date Type Department Care Team (Late st Contact Info) Description 10/04/2019 Telephone [facility] Admitting [address] [place] [address] [place] [address] [facility] [address] [place] [address] Alcohol Problem (Spoke w/Tayo and [...] on file Legal Sex Female 4:05 AM CROP SPECIALIST Gender Identity Not on file Sexual [...]
--- OUTSIDE RECORDS SUMMARY | 2024-08-22 20:26 | XMS_ITS | Encounter Summary ---
Author Organization [facility] Address [address] [place] [address] Care Team Providers Care Sizing Machine Tender Name Role Phone Elen Kong MD Primary Care Provider [phone] Encounter Details Date Type Department Care Team (Late st Contact Info) Description 01/14/1998 Outpatient Historical [facility] Internal Medicine - [facility] [address] [address] [facility] [address] [place] [address] Mary Camacho MD Social History Tobacco Use Types Packs/Day Years Used Date Smoking Tobacco: Never Assessed Comments Unknown Sex and Gender Information Value Date Recorded Sex Assigned at Not on file Legal Sex Female 4:05 AM TAR POT WORKER Gender Identity Not on file Sexual Orientation [...] documented as of this encounter Care Teams Sizing Machine Tender Relationship Specialty Start Date End Date Elen Kong MD [address] [facility] [address] [place] [address] PCP - General Internal Medicine 07/21/17 11/13/18 documented as of this encounter
--- OUTSIDE RECORDS SUMMARY | 2024-08-22 20:26 | XMS_ITS | Encounter Summary ---
Author Organization [facility] Address [address] [place] [address] Care Team Providers Care Care Transitions Nurse Name Role Phone Elen Kong MD Primary Care Provider Encounter Details Date Type Department Care Team (Late st Contact Info) Description 08/08/1998 Outpatient Historical [facility] Internal Medicine - [facility] [address] [address] [facility] [address] [place] [address] Mary Camacho MD Social History Tobacco Use Types Packs/Day Years Used Date Smoking Tobacco: Never Assessed Comments Unknown Sex and Gender Information Value Date Recorded Sex Assigned at Not on file Legal Sex Female 4:05 AM BALLROOM DANCE INSTRUCTOR Gender Identity Not on file Sexual Orientation [...] documented as of this encounter Care Teams Care Transitions Nurse Relationship Specialty Start Date End Date Elen Kong MD [address] [facility] [address] [place] [address] PCP - General Internal Medicine 07/21/17 11/13/18 documented as of this encounter
--- OUTSIDE RECORDS SUMMARY | 2024-08-22 20:26 | XMS_ITS | Encounter Summary ---
Author Organization [facility] Address [address] [place] [address] Care Team Providers Care Seam Taper Machine Name Role Phone Elen Kong MD Primary Care Provider [phone] Encounter Details Date Type Department Care Team (Late st Contact Info) Description 03/05/1998 Outpatient Historical [facility] Internal Medicine - [facility] [address] [address] [facility] [address] [place] [address] Mary Camacho MD Social History Tobacco Use Types Packs/Day Years Used Date Smoking Tobacco: Never Assessed Comments Unknown Sex and Gender Information Value Date Recorded Sex Assigned at Not on file Legal Sex Female 4:05 AM AGRICULTURAL LOAN OFFICER Gender Identity Not on file Sexual [...] documented as of this encounter Care Teams Seam Taper Machine Relationship Specialty Start Date End Date Elen oKng MD [address] [facility] [address] [place] [address] PCP - General Internal Medicine 07/21/17 11/13/18 documented as of this encounter
--- OUTSIDE RECORDS SUMMARY | 2024-08-22 20:26 | XMS_ITS | Encounter Summary ---
Author Organization [facility] Address [address] [place] [address] Care Team Providers Care Screenplay Writer Name Role Phone Elen Kong MD Primary Care Provider [phone] Encounter Details Date Type Department Care Team (Late st Contact Info) Description 03/24/2007 Outpatient Historical [facility] Internal Medicine - [facility] [address] [address] [facility] [address] [place] [address] Mary Camacho MD Social History Tobacco Use Types Packs/Day Years Used Date Smoking Tobacco: Never Assessed Comments Unknown Sex and Gender Information Value Date Recorded Sex Assigned at Not on file 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
--- OUTSIDE RECORDS SUMMARY | 2024-08-22 20:26 | XMS_ITS | Clinical Summary ---
Author Organization [facility] Address [address], [place] [address] Phone Care Team Providers Care Extension Worker Name Role Phone Shannon Ortiz MD Primary Care Provider [phone] Allergies Active Allergy Reactions Criticality Noted Date [...] mg IM Every 28 days 09/19/2023 08/20/2024 End ed Active Problems Problem Noted Date Diagnosed Date Encounter for hearing screening with abnormal fi ndings 03/26/2024 Right hip pain 05/22/2023 Assessment & Plan (05/22/2023 7:51 AM MANAGER RAIL): Right Hip XR ordered Advised to take tylenol as needed for pain/inflammation. Sinus congestion 05/22/2023 Assessment & Plan (05/22/2023 7:51 AM MANAGER RAIL): Zyrtec prescribed for sinus congesiton Ruptured ear [...] 01/03/2023 Bipolar I disorder with sue (HCC ([facility]) 01/03/2023 PTSD (post-traumatic stress disorder) 01/27/2021 01/03/2023 Major depressive disorder, recurrent 11/04/2020 01/03/2023 Assessment & Plan (09/20/2023 8:45 PM CDT): Continue wellbutrin as directed. Patient is following up with Dr. Melissa next week. Assessment & Plan (05/22/2023 7:53 AM MANAGER RAIL): Decreased Welbutrin dose from 300 to 150 [...] immediately prior to arrival in ED. - [facility] protocol - patient prefers not to address [...] Type Department Care Team Description 08/01/[address] [address] [facility] Follow-up from Last 3 Months Immunizations Immunization Administration Dates Next Due DTaP 01/23/2006 Influenza, Unspecified 02/10/2021,01/22/2019,04/2012 Influenza, injectable, quadr ivalent, preservative free 05/17/2023,12/25/2019,05/03/2019 Influenza, split virus, triv alent, injectable, contains preservative 02/07/2013 Dallin SARS-CoV-2 Vaccination 09/01/2020 Novel [id number] 01/14/2014 PPD Test 03/26/2024 Pfizer Covid-19 mRNA, LNP-S, Yogi-Sucrose Vaccine 12Yrs & [...] Comments Blood Pressure 116/68 03/06/2024 8:50 AM MANAGER RAIL Pulse 67 03/06/2024 8:50 AM MANAGER RAIL Temperature 36.3 C (97.3 F) 03/06/2024 8:50 AM MANAGER RAIL Respiratory Rate 18 09/23/2018 8:50 AM CDT Oxygen Saturation 99% 03/06/2024 8:50 AM MANAGER RAIL Inhaled Oxygen Concentration - - Weight 54.1 kg (119 lb 3.2 oz) 03/06/2024 8:50 A M MANAGER RAIL Height 175.3 cm (5' 9 ) 03/06/2024 8:50 AM MANAGER RAIL Body Mass Index 17.6 03/06/2024 8:50 AM MANAGER RAIL Plan of Treatment Upcoming Encounters Date Type Department Care Team (Late st Contact Info) Description 03/12/2025 9:30 AM MANAGER RAIL Procedure Visit [facility] [address] [place] [address] Fide Gomez [facility] [address] [place] [address] Health Maintenance Due Date Last Done Comments MMR Vaccines (1 of 1 - Standard series) 1981 Varicella Vaccines (1 of 2 - 13+ 2-dose series) 1993 Hepatitis B Vaccines (1 of 3 - 19+ 3-dose series) 1999 Pneumococcal Vaccine: 0-49 Years (1 of 2 - PCV) 1999 Mammogram 2020 Pap Smear 08/22/2023 COVID-19 Vaccine ( - season) 2023 05/17/2023, 09/01/2020 Influenza Vaccine [...] TO HPV 16,18/45 Routine 03/06/2024 2:30 PM MANAGER RAIL Encounter for screening for human papillomavirus (HPV) [...] REFLEX TO HPV 16,18/45 (03/06/2024 2:30 PM MANAGER RAIL) CLINICAL INFORMATION Routine exam [facility] 1 LMP [...] 1 Comment: YQ, CT(ASCP) CT screening location: [place] [address] [place] [address] ELECTRONICALLY SIGNED BY SEE NOTE [facility] 1 [...] HPV mRNA E6/E7 Not Detected Not Detected [facility] Comment: Methodology: Basketball Coach-Mediated Amplification This assay detects E6/E7 viral messenger RNA (mRNA) from 14 high-risk HPV types (16,18,31,33,35,39,45,51,52,56,58,59,66,68). Cervical sources are required for HPV testing. If a vaginal source from a patient who has had a total hysterectomy with removal of cervix was submitted, please contact the testing laboratory for alternative testing options. For additional information, please refer to http://education.Myagi/faq/XTM177j1 (This link if provided for information/ educational purposes only.) Swab Cervical swab / Unknown 03/06/2024 2:30 PM MANAGER RAIL 03/07/2024 6:15 AM MANAGER RAIL Narrative [facility] - 03/16/2024 8:13 AM MANAGER RAIL FASTING:UNKNOWN FASTING: UNKNOWN Fide Gomez [facility] CYTOLOGY ORDERABLES Final Result [facility] ELSA [address] [address] [place] [address], [facility] 1 * HIV 1/2 ANTIGEN/ANTIBODY,FOURTH GENERATION W/RFL (08/21/2020 2:08 PM CDT) HIV 1/2 AG/AB NON-REACT CHINEDU NON-REACT CHINEDU [facility] Comment:HIV-1 antigen and HI V-1/HIV-2 antibodies were [...] purpose. For additional information please refer to http://Unified Office.Myagi/faq/UUZ664 (This link is being provided for informational/ educational purposes only.) The performance of this assay has not been clinically validated in patients less than 2 years old. 08/21/2020 2:08 PM CDT 08/21/2020 2:08 PM CDT [facility]AB[facility] Fi nal Result Performing Organization Address [facility] de Phone Number [facility] * HEPATITIS C ANTIBODY (10/27/2018 10:18 AM CDT) SIGNAL TO CUT-OFF 0.02 <1.00 [facility] Comment:HCV antibody was non -reactive. There is no laboratory evidence of HCV infection. In most cases, no further action is required. However, if recent HCV exposure is suspected, a test for HCV RNA (test code 48013) is suggested. For additional information please refer to http://Unified Office.Myagi/faq/IQN81x9 (This link is being provided for informational/ educational purposes only.) HEPATITIS C AB NON-REACTI VE NON-REACT CHINEDU [facility] 10/27/2018 10:1 8 AM CDT 10/27/2018 10:18 AM CDT [facility] LAB BLOOD ORDERABLES Final Resul t Performing Organization Address [facility] de Phone Number [facility] * (ABNORMAL) HEPATITIS B SURFACE ANTIBODY QL (10/27/2018 10:18 AM CDT) HEPATITIS B SURF AB REACTIVE(A ) NON-REACTI VE [facility] 10/27/2018 10:1 8 AM CDT 10/27/2018 10:18 AM CDT [facility] LAB BLOOD ORDERABLES Final Resul t [facility] from Last 3 Months or Most Recently Relevant to Health Maintenance Insurance [facility] BL[facility] Care Teams Extension Worker Relationship Specialty Start Date End Date Shannon Ortiz MD [address] [place] [address] PCP - General Family Medicine 10/28/23
--- OUTSIDE RECORDS SUMMARY | 2024-08-22 20:27 | XMS_ITS | Encounter Summary ---
Author Organization [facility] Address [address] [place] [address] Care Team Providers Care Cotton Machine Operator Name Role Phone Elen Kong MD Primary Care Provider [phone] Encounter Details Date Type Department Care Team (Late st Contact Info) Description 07/23/2004 Outpatient Historical [facility] Internal Medicine - [facility] [address] [address] [facility] [address] [place] [address] Mary Camacho MD Social History Tobacco Use Types Packs/Day Years Used Date Smoking Tobacco: Never Assessed Comments Unknown Sex and Gender Information Value Date Recorded Sex Assigned at Not on file 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
--- OUTSIDE RECORDS SUMMARY | 2024-08-22 20:27 | XMS_ITS | Encounter Summary ---
Author Organization [facility] Address [address] [place] [address] Care Team Providers Care Business Integration Analyst Name Role Phone Elen Kong MD Primary Care Provider [phone] Encounter Details Date Type Department Care Team (Late st Contact Info) Description 09/06/2001 Outpatient Historical [facility] - [facility] [address] [address] [facility] [address] [place] [address] Mary Camacho MD Social History Tobacco Use Types Packs/Day Years Used Date Smoking Tobacco: Never Assessed Comments Unknown Sex and Gender Information Value Date Recorded Sex Assigned at Not on file 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
--- OUTSIDE RECORDS SUMMARY | 2024-08-22 20:27 | XMS_ITS | Encounter Summary ---
Author Organization [facility] Address [address] [place] [address] Care Team Providers Care Healthcare Translator Name Role Phone Elen Kong MD Primary Care Provider [phone] Encounter Details Date Type Department Care Team (Late st Contact Info) Description 10/05/2001 Outpatient Historical [facility] Internal Medicine - 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
--- OUTSIDE RECORDS SUMMARY | 2024-08-22 20:27 | XMS_ITS | Encounter Summary ---
Author Organization [facility] Address [address] [place] [address] Care Team Providers Care Automotive Product Specialist Name Role Phone Elen Kong MD Primary Care Provider [phone] Encounter Details Date Type Department Care Team (Late st Contact Info) Description 11/08/2000 Outpatient Historical [facility] Internal Medicine - [facility] [address] [address] [facility] [address] [place] [address] Mary Camacho MD Social History Tobacco Use Types Packs/Day Years Used Date Smoking Tobacco: Never Assessed Comments Unknown Sex and Gender Information Value Date Recorded Sex Assigned at Not on file Legal Sex Female 4:05 AM SMALL PIECE CUTTER Gender Identity Not on file Sexual Orientation [...] documented as of this encounter Care Teams Automotive Product Specialist Relationship Specialty Start Date End Date Elen Kong MD [address] [facility] [address] [place] [address] PCP - General Internal Medicine 07/21/17 11/13/18 documented as of this encounter
--- OUTSIDE RECORDS SUMMARY | 2024-08-22 20:27 | XMS_ITS | Encounter Summary ---
Author Organization [facility] Address [address] [place] [address] Care Team Providers Care Dehydrogenation Operator Head Name Role Phone Elen Kong MD Primary Care Provider [phone] Encounter Details Date Type Department Care Team (Latest Contact Info) Description 03/05/2002 Outpatient Historical HIS PATIENT IN A BED Lev Hook MD [address] [id number] COMPLIC BINDERY MACHINE TENDER ORTHO DEVICE ([facility]) (Primary Dx) Social History Tobacco Use Types Packs/Day Years Used Date Smoking Tobacco: Never Assessed Comments Unknown Sex and Gender Information Value Date Recorded Sex Assigned at Not on file Legal Sex Female 4:05 AM MANAGER CARDIAC Gender Identity Not on file Sexual Orientation [...] documented as of this encounter Care Teams Dehydrogenation Operator Head Relationship Specialty Start Date End Date Elen Kong MD [address] [place] [address] [address] [place] [address] PCP - General Internal Medicine 07/21/17 11/13/18 documented as of this encounter
--- OUTSIDE RECORDS SUMMARY | 2024-08-22 20:27 | XMS_ITS | Encounter Summary ---
Author Organization [facility] Address [address] [place] [address] Care Team Providers Care Concrete Stone Fabricator Name Role Phone Elen Kong MD Primary Care Provider [phone] Encounter Details Date Type Department Care Team (Late st Contact Info) Description 11/18/2004 Outpatient Historical [facility] Internal Medicine - [facility] [address] [address] [facility] [address] [place] [address] Mary Camacho MD Social History Tobacco Use Types Packs/Day Years Used Date Smoking Tobacco: Never Assessed Comments Unknown Sex and Gender Information Value Date Recorded Sex Assigned at Not on file 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
[2024-08-22 20:30] LABS: INR 1.2; Prothrombin Time 15.5 Seconds (11.1-14.7)
[2024-08-22 20:33] LABS: Partial Thromboplastin Time 30.3 Seconds (22.3-36.8)
--- NOTE | 2024-08-22 20:43 | ED_ITS ---
HPI - General Adult General Chief complaint: Altered Mental Status <Jose Guadalupe Kelsey MD - Last Filed: 08/22/24 23:02> Stated complaint: UNRESPONSIVE-->SLOW TO RESPOND, 750MG THC EDIBLES <Jose Guadalupe Kelsey MD - Last Filed: 08/22/24 23:02> Time Seen by Provider: 08/22/24 19:51 <Jose Guadalupe Kelsey MD - Last Filed: 08/22/24 23:02> History of Present Illness HPI narrative: Patient is a 44-year-old female who presents ER with intoxication. Friends called EMS after patient been laying on the ground for several hours. Patient had taken some THC gummies. It is unknown how many she took. One gummy contains delta-8 222.5 mg, liquid diamonds 25 mg, and THC-V2 0.5 mg. Patient awakens to sternal rub. She reports she took 5 gummies. Denies trying to take her own life. She was recently at some point for mental health care. Patient known to have alcohol and drug issues. Takes naloxone. Denies any alcohol use. The patient falls asleep quite rapidly after sternal rub but awakens quickly with noxious stimuli and moves all extremities arm. He denies SI. <Jose Guadalupe Kelsey MD - Last Filed: 08/22/24 23:02> Patient is a 44-year-old female who presents ER with intoxication. Friends called EMS after patient been laying on the ground for several hours. Patient had taken some THC gummies. It is unknown how many she took. One gummy contains delta-8 222.5 mg, liquid diamonds 25 mg, and THC-V2 0.5 mg. Patient awakens to sternal rub. She reports she took 5 gummies. Denies trying to take her own life. She was recently at some point for mental health care. Patient known to have alcohol and drug issues. Takes naloxone. Denies any alcohol use. The patient falls asleep quite rapidly after sternal rub but awakens quickly with noxious stimuli and moves all extremities arm. She denies SI. <Ruba Navarro MD - Last Filed: 08/23/24 01:55> Related Data Allergies/adverse reactions: Allergies Allergy/AdvReac Type Severity Reaction Status Date / Time No Known Allergies Allergy Verified 08/13/24 13:04 <Jose Guadalupe Kelsey MD - Last Filed: 08/22/24 23:02> Review of Systems 2 Review of Systems: ROS unobtainable: Yes unobtainable due to medical condition <Jose Guadalupe Kelsey MD - Last Filed: 08/22/24 23:02> PMFSH Past Medical History Medical History: Medical History (Updated 08/23/24 @ 01:47 by Ruba Navarro MD) Alcoholism <Jose Guadalupe Kelsey MD - Last Filed: 08/22/24 23:02> Social History Social History: Social History Substance use type: marijuana <Jose Guadalupe Kelsey MD - Last Filed: 08/22/24 23:02> Exam 2 Narrative: GENERAL: Sleeping, well-nourished, and in no acute distress. HEAD: Normocephalic, atraumatic. EYES: PERRL and EOMI. ENT: Mucous membranes moist. CHEST: Clear to auscultation. No respiratory distress. HEART: Regular rate and rhythm. Normal peripheral pulses. ABDOMEN: Soft, nontender, nondistended. EXTREMITIES: Normal range of motion. No edema. SKIN: Warm, dry, no rash. NEURO: Alert and oriented x3. PSYCH: Normal mood and affect. <Jose Guadalupe Kelsey MD - Last Filed: 08/22/24 23:02> GENERAL: Sleeping, well-nourished, and in no acute distress. HEAD: Normocephalic, atraumatic. EYES: PERRL and EOMI. ENT: Mucous membranes moist. CHEST: Clear to auscultation. No respiratory distress. HEART: Regular rate and rhythm. Normal peripheral pulses. ABDOMEN: Soft, nontender, nondistended. EXTREMITIES: Normal range of motion. No edema. SKIN: Warm, dry, no rash. NEURO: Sleepy but oriented x3. PSYCH: Normal mood and affect. <Ruba Navarro MD - Last Filed: 08/23/24 01:55> Course Course Emergency Course: Patient resting comfortably. Transfer care to Dr. Navarro. Obs until sober. <Jose Guadalupe Kelsey MD - Last Filed: 08/22/24 23:02> Vital Signs Vital signs: Vital Signs Temperature 98.2 F 08/22/24 19:48 Pulse Rate 93 08/22/24 19:48 Respiratory Rate 10 L 08/22/24 19:48 Blood Pressure 114/80 08/22/24 19:48 Pulse Oximetry 97 08/22/24 19:48 Oxygen Delivery Room Air 08/22/24 19:48 Temperature 98.2 F 08/22/24 19:48 Pulse Rate 71 08/22/24 21:29 Respiratory Rate 10 L 08/22/24 21:29 Blood Pressure 95/75 L 08/22/24 21:29 Pulse Oximetry 100 08/22/24 21:29 Oxygen Delivery Room Air 08/22/24 20:06 <Jose Guadalupe Kelsey MD - Last Filed: 08/22/24 23:02> Vital Signs Temperature 98.2 F 08/22/24 19:48 Pulse Rate 93 08/22/24 19:48 Respiratory Rate 10 L 08/22/24 19:48 Blood Pressure 114/80 08/22/24 19:48 Pulse Oximetry 97 08/22/24 19:48 Oxygen Delivery Room Air 08/22/24 19:48 Temperature 98.2 F 08/22/24 19:48 Pulse Rate 71 08/22/24 21:29 Respiratory Rate 10 L 08/22/24 21:29 Blood Pressure 95/75 L 08/22/24 21:29 Pulse Oximetry 100 08/22/24 21:29 Oxygen Delivery Room Air 08/22/24 20:06 <Ruba Navarro MD - Last Filed: 08/23/24 01:55> Medical Decision Making MDM Narrative Medical decision making narrative: 44-year-old female presents here after being found altered and sleepy by her friends, reportedly had taken about 750 mg of marijuana. EKG on my independent interpretation shows normal sinus rhythm rate 83, normal [place], QRS, QTC, no significant ST elevations depressions or signs of acute ischemia or arrhythmia. Chest x-ray on my independent interpretation does not show any obvious large consolidations or pneumothorax. Labs here were within acceptable limits, patient without any focal neurologic deficits. Was sleeping when she was signed out to me, and on my re-evaluation, patient is now awake. She is eating pretzels without issues. Apparently denies any complaints other than she feels cold and sleepy. At this point I do not feel any further intervention or workup is necessary, her vital signs are completely stable and she has not been hypoxic here. I do feel she is stable for discharge at this time with return precautions and follow-up to mental services as needed. <Ruba Navarro MD - Last Filed: 08/23/24 01:55> Vital Signs Vital Signs: Vital Signs Temperature 98.2 F 08/22/24 19:48 Pulse Rate 93 08/22/24 19:48 Respiratory Rate 10 L 08/22/24 19:48 Blood Pressure 114/80 08/22/24 19:48 Pulse Oximetry 97 08/22/24 19:48 Oxygen Delivery Room Air 08/22/24 19:48 Temperature 98.2 F 08/22/24 19:48 Pulse Rate 71 08/22/24 21:29 Respiratory Rate 10 L 08/22/24 21:29 Blood Pressure 95/75 L 08/22/24 21:29 Pulse Oximetry 100 08/22/24 21:29 Oxygen Delivery Room Air 08/22/24 20:06 <Jose Guadalupe Kelsey MD - Last Filed: 08/22/24 23:02> Vital Signs Temperature 98.2 F 08/22/24 19:48 Pulse Rate 93 08/22/24 19:48 Respiratory Rate 10 L 08/22/24 19:48 Blood Pressure 114/80 08/22/24 19:48 Pulse Oximetry 97 08/22/24 19:48 Oxygen Delivery Room Air 08/22/24 19:48 Temperature 98.2 F 08/22/24 19:48 Pulse Rate 71 08/22/24 21:29 Respiratory Rate 10 L 08/22/24 21:29 Blood Pressure 95/75 L 08/22/24 21:29 Pulse Oximetry 100 08/22/24 21:29 Oxygen Delivery Room Air 08/22/24 20:06 <Ruba Navarro MD - Last Filed: 08/23/24 01:55> Lab Data Result diagrams: 08/22/24 20:06 08/22/24 20:06 <Jose Guadalupe Kelsey MD - Last Filed: 08/22/24 23:02> Labs: Lab Results 08/22/24 08/22/24 08/22/24 Range/Units 20:06 21:00 21:01 WBC 3.9 L (4.5-10.0) K/mm3 RBC 3.97 L (4.2-5.4) M/mm3 Hgb 11.9 L (12.0-15.0) g/dL Hct 37.8 (37.0-47.0) % MCV 95.2 (80-100) fl MCH 30.0 (26-34) pg MCHC 31.5 L (32-36) g/dl RDW 14.5 (11.5-14.5) % Plt Count 219 (150-375) k/mm3 MPV 8.9 (7.4-10.4) fl Immature Gran % (Auto) 0.3 (0-0.5) % Neut % (Auto) 33.2 L (45.5-73.1) % Lymph % (Auto) 52.4 H (18.3-44.2) % Dougherty % (Auto) 11.8 H (2.6-8.5) % Eos % (Auto) 1.0 (0-4.4) % Baso % (Auto) 1.3 H (0.2-1.2) % Lymph # (Auto) 2.05 (0.9-3.2) K/mm3 Dougherty # (Auto) 0.5 (0.1-0.6) K/mm3 Eos # (Auto) 0.0 (0-0.3) K/mm3 Baso # (Auto) 0.1 (0.0-0.1) K/mm3 Abs Immat Gran (auto) 0.01 (0.00-0.031) K/mm3 Absolute Neuts (auto) 1.3 (1.3-6.7) K/mm3 Absolute Nucleated RBC 0.000 (0.0-0.012) K/mm3 Nucleated RBC % 0.0 (0.0-0.2) % PT 15.5 H (11.1-14.7) Seconds INR 1.2 APTT 30.3 (22.3-36.8) Seconds Sodium 146 H (137-145) mmol/L Potassium 4.0 (3.4-5.0) mmol/L Chloride 110 H (98-107) mmol/L Carbon Dioxide 28 (22-30) mmol/L Anion Gap 8 (4-12) mmol/L BUN 10 (7-17) mg/dL Creatinine 0.59 L (0.7-1.0) mg/dL Estim Creat Clear Calc Not Reportable Estimated GFR > 60 (59 - ) Glucose 127 H (65-110) mg/dL Lactic Acid 1.2 (0.7-2.0) mmol/L Calcium 7.7 L (8.4-10.2) mg/dL Total Bilirubin 0.3 (0.2-1.3) mg/dL AST 30 (14-36) U/L ALT 19 (6-35) U/L Alkaline Phosphatase 67 (38-126) U/L Total Creatine Kinase 34 (30-135) U/L Total Protein 7.0 (6.3-8.2) g/dL Albumin 3.8 (3.5-5.1) g/dL Urine Color Dark yellow (Yellow) Urine Appearance Cloudy H (Clear) Urine pH 6.5 (5.0-9.0) Ur Specific Immaculata 1.024 (1.001-1.035) Urine Protein Trace (Negative) mg/dL Urine Glucose (UA) Negative (Negative) mg/dL Urine Ketones Negative (Negative) mg/dL Ur Blood (Man) 2+ H (Negative) Urine Nitrate Negative (Negative) Urine Bilirubin Negative (Negative) Urine Urobilinogen 1.0 (<2.0) mg/dL Add Ur Microanalysis Reviewed Leukocyte Esterase Rfl Negative (Negative) LEO/UL Urine RBC 0-2 (0-2) /hpf Urine WBC 0-5 (0-3) /hpf Ur Squamous Epith Cells Many H (Few) /hpf Urine Bacteria 2+ H /hpf Urine Casts 0-2 Salicylates < 1.0 L (2-20) mg/dL Urine Opiates Screen Negative (Negative) Urine Methadone Screen Negative (Negative) Acetaminophen < 10 L (10-30) ug/mL Ur Barbiturates Screen Negative (Negative) Ur Phencyclidine Scrn Negative (Negative) Ur Amphetamine Screen Negative (Negative) U Benzodiazepines Scrn Positive A (Negative) Urine Cocaine Screen Negative (Negative) U Cannabinoids Screen Positive A (Negative) Ethyl Alcohol 184 (<10) mg/dL <Jose Guadalupe Kelsey MD - Last Filed: 08/22/24 23:02> Lab Results 08/22/24 08/22/24 08/22/24 Range/Units 20:06 21:00 21:01 WBC 3.9 L (4.5-10.0) K/mm3 RBC 3.97 L (4.2-5.4) M/mm3 Hgb 11.9 L (12.0-15.0) g/dL Hct 37.8 (37.0-47.0) % MCV 95.2 (80-100) fl MCH 30.0 (26-34) pg MCHC 31.5 L (32-36) g/dl RDW 14.5 (11.5-14.5) % Plt Count 219 (150-375) k/mm3 MPV 8.9 (7.4-10.4) fl Immature Gran % (Auto) 0.3 (0-0.5) % Neut % (Auto) 33.2 L (45.5-73.1) % Lymph % (Auto) 52.4 H (18.3-44.2) % Dougherty % (Auto) 11.8 H (2.6-8.5) % Eos % (Auto) 1.0 (0-4.4) % Baso % (Auto) 1.3 H (0.2-1.2) % Lymph # (Auto) 2.05 (0.9-3.2) K/mm3 Dougherty # (Auto) 0.5 (0.1-0.6) K/mm3 Eos # (Auto) 0.0 (0-0.3) K/mm3 Baso # (Auto) 0.1 (0.0-0.1) K/mm3 Abs Immat Gran (auto) 0.01 (0.00-0.031) K/mm3 Absolute Neuts (auto) 1.3 (1.3-6.7) K/mm3 Absolute Nucleated RBC 0.000 (0.0-0.012) K/mm3 Nucleated RBC % 0.0 (0.0-0.2) % PT 15.5 H (11.1-14.7) Seconds INR 1.2 APTT 30.3 (22.3-36.8) Seconds Sodium 146 H (137-145) mmol/L Potassium 4.0 (3.4-5.0) mmol/L Chloride 110 H (98-107) mmol/L Carbon Dioxide 28 (22-30) mmol/L Anion Gap 8 (4-12) mmol/L BUN 10 (7-17) mg/dL Creatinine 0.59 L (0.7-1.0) mg/dL Estim Creat Clear Calc Not Reportable Estimated GFR > 60 (59 - ) Glucose 127 H (65-110) mg/dL Lactic Acid 1.2 (0.7-2.0) mmol/L Calcium 7.7 L (8.4-10.2) mg/dL Total Bilirubin 0.3 (0.2-1.3) mg/dL AST 30 (14-36) U/L ALT 19 (6-35) U/L Alkaline Phosphatase 67 (38-126) U/L Total Creatine Kinase 34 (30-135) U/L Total Protein 7.0 (6.3-8.2) g/dL Albumin 3.8 (3.5-5.1) g/dL Urine Color Dark yellow (Yellow) Urine Appearance Cloudy H (Clear) Urine pH 6.5 (5.0-9.0) Ur Specific [place]aculata 1.024 (1.001-1.035) Urine Protein Trace (Negative) mg/dL Urine Glucose (UA) Negative (Negative) mg/dL Urine Ketones Negative (Negative) mg/dL Ur Blood (Man) 2+ H (Negative) Urine Nitrate Negative (Negative) Urine Bilirubin Negative (Negative) Urine Urobilinogen 1.0 (<2.0) mg/dL Add Ur Microanalysis Reviewed Leukocyte Esterase Rfl Negative (Negative) LEO/UL Urine RBC 0-2 (0-2) /hpf Urine WBC 0-5 (0-3) /hpf Ur Squamous Epith Cells Many H (Few) /hpf Urine Bacteria 2+ H /hpf Urine Casts 0-2 Salicylates < 1.0 L (2-20) mg/dL Urine Opiates Screen Negative (Negative) Urine Methadone Screen Negative (Negative) Acetaminophen < 10 L (10-30) ug/mL Ur Barbiturates Screen Negative (Negative) Ur Phencyclidine Scrn Negative (Negative) Ur Amphetamine Screen Negative (Negative) U Benzodiazepines Scrn Positive A (Negative) Urine Cocaine Screen Negative (Negative) U Cannabinoids Screen Positive A (Negative) Ethyl Alcohol 184 (<10) mg/dL <Ruba Navarro MD - Last Filed: 08/23/24 01:55> Discharge Plan Discharge Clinical Impression: Altered mental status, Accidental marijuana overdose <Jose Guadalupe Kelsey MD - Last Filed: 08/22/24 23:02> Patient Disposition: Home <Jose Guadalupe Kelsey MD - Last Filed: 08/22/24 23:02> Condition: Stable <Jose Guadalupe Kelsey MD - Last Filed: 08/22/24 23:02> Instructions: Cannabis Use Disorder (ED) <Jose Guadalupe Kelsey MD - Last Filed: 08/22/24 23:02> Additional Instructions: Please be careful about not overdosing on any drugs including marijuana. You can always return to the hospital for any further issues. Please follow-up with your doctor <Jose Guadalupe Kelsey MD - Last Filed: 08/22/24 23:02> Patient Language: Cypriot <Jose Guadalupe Kelsey MD - Last Filed: 08/22/24 23:02> Follow-up/Referrals: UNKNOWN,DOCTOR [Primary Care Provider] - <Jose Guadalupe Kelsey MD - Last Filed: 08/22/24 23:02>
[2024-08-22 21:24] LABS: Lactic Acid Reflex 1.2 mmol/L (0.7-2.0)
[2024-08-22 21:25] LABS: Add Urine Microscopic? YES; Appearance Urine Cloudy (Clear); Bacteria Urine 2+ /hpf; Bilirubin Urine Negative (Negative); Blood Urine 2+ (Negative); Color Urine Dark Yellow (Yellow); Glucose Urine UA Negative (Negative); Ketones Urine Negative (Negative); Leukocyte Esterase Ur Negative LEU/UL (Negative); Nitrate Urine Negative (Negative); Non Pathogenic Casts 0-2; Protein Urine Trace mg/dL (Negative); RBC Urine 0-2 /hpf (0-2); Specific Grav Ur 1.024 (1.001-1.035); Squamous Epithelial Cell Urine Many /hpf (Few); WBC Urine 0-5 /hpf (0-3); pH Urine 6.5 (5.0-9.0)
[2024-08-22 21:26] LABS: Need Manual Microscopic Reviewed
[2024-08-22 21:29] VITALS: BP 95/75; PULSE 71; RESP 10; O2SAT 100
[2024-08-22 21:35] LABS: Amphetamine Screen Urine Negative (Negative); Barbiturate Screen Urine Negative (Negative); Benzodiazepines Screen Urine Positive (Negative); Cannabinoid Screen Urine Positive (Negative); Cocaine Screen Urine Negative (Negative); Methadone Screen Urine Negative (Negative); Opiate Screen Urine Negative (Negative); Phencyclidine Screen Urine Negative (Negative)
[2024-08-23 01:57] VITALS: BP 118/76; PULSE 65; RESP 17; O2SAT 99
== END 2024-08-23 01:58 | disposition home or self-care (01) ==
PROVIDERS: Emergency Medicine; Emergency Provider Emergency Medicine
DX: T40.711A Poisoning by cannabis, accidental (unintentional), initial encounter (principal); R41.82 Altered mental status, unspecified; F10.20 Alcohol dependence, uncomplicated; Y90.6 Blood alcohol level of 120-199 mg/100 ml
CPT/HCPCS: 36415; 71045; 80053; 80143; 80179; 80307; 81001; 82077; 82550; 83605; 85025; 85610; 85730; 93005; 96360; 96361; 99284; J7030

== ENCOUNTER 2024-12-23 16:30 | Emergency (ER) | payer BC, SELFPAY ==
--- NOTE | ~2024-12-23 | CT_ITS ---
EXAMINATION: CT brain wo con COMPARISON: None HISTORY: altered mental status TECHNIQUE: Axial images were obtained through the brain without IV contrast. CT scan performed using dose optimization techniques including the following automated exposure control; adjustment of mA and/or kV; use of iterative reconstruction technique. Automatic exposure control was used to reduce radiation dose. Permanent radiation dose record is archived to PACS. FINDINGS: No acute infarct or parenchymal hemorrhage. No abnormal mass or mass effect. No midline shift. No extra-axial fluid collections. No hydrocephalus. . Mastoid air cells unremarkable. Sinuses and orbits unremarkable. No acute fracture. No significant facial or scalp soft tissue swelling evident. No radiopaque foreign body is seen. Impression: 1.No acute intracranial abnormality. Reviewed, dictated and finalized at location A. Impression: 1.No acute intracranial abnormality.
[2024-12-23 16:41] VITALS: BP 123/77; PULSE 78; RESP 16; TEMP 36.6; O2SAT 100
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
[2024-12-23] MEDS: THIAMINE HCL 200 MG/2 ML VIAL 100 MG IV PUSH (16:58)
[2024-12-23] MEDS: ONDANSETRON INJ 4 MG/2 ML VIAL IV PUSH (16:58)
[2024-12-23] MEDS: SODIUM CHLORIDE 0.9% IV 1,000 ML 999 ML IV CONT (16:59)
--- NOTE | 2024-12-23 17:09 | PCCCNOTE ---
Attempted to assist with finding a family to notify. Pt gave the name of her mother Kinza Roldan at the address of [address] in [facility]. Attempted to utilize the white pages with no return result of the information given. Pt is not giving any other names for contact at this time.-lonny
[2024-12-23 17:17] LABS: Hematocrit 34.4 % (37.0-47.0); Hemoglobin 11.0 g/dL (12.0-15.0); Immature Granulocyte Percent A 0.4 % (0-0.5); Lymphocytes Absolute Auto 2.08 K/mm3 (0.9-3.2); Mean Corpuscular HGB Conc 32.0 g/dl (32-36); Mean Corpuscular Hemoglobin 30.1 pg (26-34); Mean Corpuscular Volume 94.0 fl (80-100); Nucleated Red Blood Cells Absolute Auto 0.000 K/mm3 (0.0-0.012); Nucleated Red Blood Cells Perc 0.0 % (0.0-0.2); Platelet Count Result 195 k/mm3 (150-375); Red Blood Count 3.66 M/mm3 (4.2-5.4); White Blood Count 5.6 K/mm3 (4.5-10.0)
[2024-12-23 17:23] VITALS: BP 126/78; PULSE 86; RESP 18; TEMP 36.6; O2SAT 100
[2024-12-23 17:23] LABS: BEDSIDEPREGUCG Negative (Negative)
[2024-12-23 17:25] LABS: Add Urine Microscopic? NO; Appearance Urine Clear (Clear); Glucose Urine UA Negative (Negative); Leukocyte Esterase Ur Negative LEU/UL (Negative); Nitrate Urine Negative (Negative); Specific Grav Ur 1.010 (1.001-1.035)
[2024-12-23 17:27] LABS: Alanine Aminotransferase 23 U/L (6-35); Albumin Level 4.0 g/dL (3.5-5.1); Alkaline Phosphatase 50 U/L (38-126); Anion Gap 3 mmol/L (4-12); Aspartate Amino Transferase 52 U/L (14-36); Bilirubin,Total 0.2 mg/dL (0.2-1.3); Blood Urea Nitrogen 6 mg/dL (7-17); Calcium 8.8 mg/dL (8.4-10.2); Carbon Dioxide 25 mmol/L (22-30); Chloride 112 mmol/L (98-107); Estimated Glomerular Filt Rate > 60; Glucose 93 mg/dL (65-110); Magnesium 2.0 mg/dL (1.6-2.3); Potassium 3.0 mmol/L (3.4-5.0); Sodium 140 mmol/L (137-145); Total Protein 6.6 g/dL (6.3-8.2)
[2024-12-23 17:28] LABS: INR 1.1; Partial Thromboplastin Time 30.5 Seconds (22.3-36.8); Prothrombin Time 14.0 Seconds (11.1-14.7)
[2024-12-23 17:38] LABS: Cannabinoid Screen Urine Negative (Negative)
--- OUTSIDE RECORDS SUMMARY | 2024-12-23 17:47 | XMS_ITS | Encounter Summary ---
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 Gender Identity Not on file Sexual Orientation Not on file documented as of this encounter Progress Notes * Echolocation, [place] Transcriptions - 09/21/2007 6:13 PM CDT TIME:09:23 am PATIENT`S HOME PHONE: PATIENT`S WORK PHONE: PATIENT`S INSURANCE: ANTHEM WHO TOOK THE CALL: Caroline Austin GENERAL INFORMATION * Echolocation, [place] Transcriptions - 09/21/2007 6:13 PM CDT TIME:09:24 am PATIENT`S HOME PHONE: PATIENT`S WORK PHONE: PATIENT`S INSURANCE: ANTHEM WHO TOOK THE CALL: Caroline Austin GENERAL INFORMATION PCP: SECTION 1: need written rx and signed by to be faxed to [id number] wellbutrin xl oral tab 24 hr [...] on Thursday, June 28, 2007 * Lilia [place] [employer] - 09/21/2007 6:10 PM CDT TIME:11:57 am PATIENT`S HOME PHONE: PATIENT`S WORK PHONE: PATIENT`S INSURANCE: MIC WHO TOOK THE CALL: Janeth Whitney GENERAL INFORMATION WHO CALLED: [facility] SECTION 1: written REQUESTED ACTION [email or web address] 06/28/07 at 11:57 am: They need written order to discontinue her lexapro fax # [phone] FINAL ACTION: [email or web address] 06/28/07 at 05:38 pm [...] PM CDT C Diff 07/08/2023 07/08/2023 09/06/2023 1:1 6 AM CDT R/O C. diff 07/22/2024 07/22/2024 07/23/2024 7:46 AM CDT documented as of this encounter Care Teams Club Attendant Relationship Specialty Start Date End Date Elen Kong MD [address] [place] [address] PCP - General Internal Medicine 07/21/17 11/13/18 documented as of this encounter
--- OUTSIDE RECORDS SUMMARY | 2024-12-23 17:47 | XMS_ITS | Clinical Summary ---
Author Organization [facility] Address [address] [place] [address] Care Team Providers Care Park Interpretive Specialist Name Role Phone Family Care, Progressive Unavailable [phone] Miscellaneous, Not In File Unavailable Unava ilable Gurpreet Shirley MD Unavailable [phone] Gurpreet Fleming MD Primary Care Provider [phone] Allergies Active Allergy Reactions Criticality Noted Date Comments Amoxicillin Itching,Rash Medium 02/21/2023 Diphenhydramine Unknown 03/30/2018 Fluoxetine Itching Low 07/10/2024 Gabapentin Swelling Medium 06/30/2022 Levofloxacin Muscle pain,Other (S ee comments) Medium 01/03/2023 Feels like law is splitting [place] Citrate Nausea & Vomiting Low 08/14/2024 Medications [...] (NATHALY/BAD1/MDD/PTSD) Assessment & Plan (04/30/2024 6:56 PM SEO MARKETING SPECIALIST): Patient initially presented to the ED with [...] baseline, remains perseverative on discharge, going to [facility] as soon as possible. Discussed with patient that she will need to bring her previously, recently, filled medications from home (including doxepin, BuSpar, olanzapine, added these to her discharge instructions) with her to [facility] or have her mother pick [...] use + has agreed to go to [facility] Alcohol withdrawal syndrome without complication [...] 01/27/2021 Assessment & Plan (04/30/2024 6:52 PM SEO MARKETING SPECIALIST): Patient states yes history of PTSD, with [...] Plan: - Librium 25 mg q24h - [facility] protocol - Ativan 2 mg for scores >8 - Ativan 4 mg for seizures - Regular diet - Folate, MV, Thiamine supplementation - Consults to balloon seller, social work supervisor, and nutrition - PT/OT to prevent deconditioning while inpatient - Fall/Seizure/Aspiration precautions - Zofran and Reglan PRN - Follow up with Dr. Cervantes and Dr. Melissa at discharge - Appointment with Dr. Melissa for 01/20 at 10:30 am - Interested in [facility] after discharge - Also interested in discharging with [facility] Assessment & Plan (04/30/2024 6:51 PM SEO MARKETING SPECIALIST): Patient has a longstanding history of alcohol [...] baseline given her current disorganized thought. Madelin Roladn meets criteria for inpatient admission due to presenting an imminent risk of harm to self or others with modifiable risk factors addressable by psychiatric hospitalization. Recommendations: - Please admit patient VOLUNTARY to [facility] or [facility] under Dr. Booker under standard suicide/elopement/assault precautions (continue these in the ED). - Voluntary paperwork signed, faxed to Patient Placement, and placed in patient's physical chart. - Discussed with ED team and psychiatry internal combustion engine assembler on-call, who are in agreement. - While [...] drink = 0.6 oz pur e alcohol) [facility] [employer] Answer Date Recorded In the past 12 months has e [employer], gas, oil, or water [employer] threatened to shut off services in your [...] or ex-partner? Yes 04/25/2024 Social Connection and Isolation Panel Answer Date Recorded In a typical week, how many times do you talk on the phone with family, friends, or neighbors? More than three times a week 04/25/2024 How often do you get togethe r with friends or relatives? Three times a week 04/25/2024 How often do you attend chur ch or sabianism services? 1 to 4 times per year 04/25/2024 Do you belong to any clubs o r organizations such as yarsani groups, unions, fraternal or athletic groups, or [...] and heating? Not hard at all 04/25/2024 [facility] - Occupational Stress [...] place to sleep or slept in a alf (including now)? No 12/29/2022 Housing Stability Vital Sign Answer Naren e Recorded In the last 12 months, was t here a time when you were not able to pay the mortgage or rent on time? No 04/25/2024 In the past 12 months, how m any times have you moved where you were living? 1 04/25/2024 At any time in the past 12 m [facility], were you homeless or living in a alf (including now)? No 04/25/2024 Personal Safety Answer [...] 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, CORRECTIONAL SECURITY OFFICER, KRUPA) 01/27/2021 Comments No Sex and Gender Information Value Date Recorded Sex Assigned at Not on file Legal Sex Female 10:48 PM SEO MARKETING SPECIALIST Gender Identity Not on file [...] 5:25 PM CDT Height 175.3 cm (5' 9) 08/14/2024 5:25 PM CDT Body Mass Index 18.46 08/14/2024 5:25 PM CDT Plan of Treatment Health Maintenance Due Date Last Done Comments Breast Cancer Screening-Mammogram 1980 Cervical Cancer Screening 1980 Depression Screening 1980 Varicella Vaccines (1 of 2 - 13+ 2-dose series) 1993 Hepatitis B Screening 1998 Regular Well Visit/Exam 18-64 1998 Pneumococcal vaccine <65 (1 of 2 - PCV) 1999 HPV Vaccines (1 - 3-dose SCD M series) 2007 Covid-19 Vaccine (2 - 2024-2 6 season) 2024 09/01/2020 Influenza Vaccine (#1) 2024 4, 02/10/2021, 12/25/2019, Additional history exists DTaP/Tdap/Td Vaccine (4 - Td or Tdap) 08/21/2029 08/22/2019, 10/27/2018, 01/23/2006, Additional history exists Hepatitis C Screening Completed 04/25/2024, 023 Procedures Procedure Name Priority Date/Time Associated Diagnosis Comments HEPATITIS C ANTIBODY Routine 04/25/2024 1:44 PM SEO MARKETING SPECIALIST from Last 3 Months or Most Recently Relevant to Health Maintenance Results * Hepatitis C antibody Blood (04/25/2024 1:44 PM SEO MARKETING SPECIALIST) Hep C Ab Nonreactive Nonreactive Comment:Antibodies to HCV no t detected. Does NOT exclude the possibility of recent exposure to HCV. Current interpretive data was last revised on 21 Blood 04/25/2024 1:44 PM SEO MARKETING SPECIALIST 04/25/2024 4:36 PM SEO MARKETING SPECIALIST us Jose Barrera MD LAB MICROBIOLOGY - GENER AL ORDERABLES Final Result [facility] Department [place] [address] from Last 3 Months or Most Recently Relevant to Health Maintenance Insurance [employer] EXCHANGE [employer] PATHWAYS EXCHANGE [employer] EXCHANGE Advance Directives For more information, please contact: [phone] * Full Code (Latest Code Status on [...] 10:16 AM 08/13/2022 7:12 PM Care Teams Park Interpretive Specialist Relationship Specialty Start Date End Date Gurpreet Fleming MD [address] [place] [address] PCP - General Family Medicine 09/05/23 Family Care, Progressive [address] [facility] 08/13/22 Miscellaneous, Not In File 12/29/22 Gurpreet Shirley MD Emergency Medicine 09/05/23
--- OUTSIDE RECORDS SUMMARY | 2024-12-23 17:47 | XMS_ITS | Encounter Summary ---
Author Organization [facility] Address [address] [facility] Attn: Epic Prelude ADT MARGARITO ALLEN [address] Care Team Providers Care Lug Breaker And Wire Puller Name Role Phone Elen Kong MD Primary Care Provider [phone] Encounter Details Date Type Department Care Team (Latest Contact Info) Description 03/24/2007 Orders Only Mary Camacho MD Social History Tobacco Use Types Packs/Day Years Used Date Smoking Tobacco: Never Assessed Comments Unknown Sex and Gender Information Value Date Recorded Sex Assigned at Not on file Legal Sex Female 4:05 AM REDUCING SALON ATTENDANT Gender Identity Not on file Sexual Orientation Not on file documented as of this encounter Progress Notes * Interface, [facility] Conv Transcriptions - 08/31/2007 10:05 AM CDT TIME:10:44 am PATIENT`S HOME PHONE: PATIENT`S WORK PHONE: PATIENT`S INSURANCE: MIC WHO TOOK THE CALL: Pennie Jackson C GENERAL INFORMATION WHO CALLED: Pharmacy called. PHARMACY NUMBER: [phone] SECTION 1: REQUESTED ACTION juan 03/24/07 at [...] on Saturday, March 24, 2007 * Lilia, [facility] Conv Transcriptions - 08/31/2007 10:01 AM [...] friends and main support systems are in [place] Becomes very tearful [...] lymphadenopathy in the neck. NEUROLOGIC: CRANIAL NERVES: recycling or rubbish collector II-XII grossly intact. PSYCHIATRIC: Appropriate judgment and [...] documented as of this encounter Care Teams Lug Breaker And Wire Puller Relationship Specialty Start Date End Date Elen Kong MD [address] [facility] [address] [place] [address] PCP - General Internal Medicine 07/21/17 11/13/18 documented as of this encounter
--- OUTSIDE RECORDS SUMMARY | 2024-12-23 17:48 | XMS_ITS | Encounter Summary ---
Author Organization [facility] Address [address] [place] [address] Care Team Providers Care Furnace Unloader Name Role Phone Elen Kong MD Primary Care Provider Encounter Details Date Type Department Care Team (Late st Contact Info) Description 10/11/2000 Outpatient Historical [facility] Internal Medicine - [facility] [address] [address] [facility] [address] [place] [address] Mary Camacho MD Social History Tobacco Use Types Packs/Day Years Used Date Smoking Tobacco: Never Assessed Comments Unknown Sex and Gender Information Value Date Recorded Sex Assigned at Not on file Legal Sex Female 4:05 AM 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
--- OUTSIDE RECORDS SUMMARY | 2024-12-23 17:48 | XMS_ITS | Encounter Summary ---
Author Organization [facility] Address [address] [place] [address] Care Team Providers Care Director Cardiac Name Role Phone Unavailable Primary Care Provider Unavailabl e Reason for Visit * Reason Onset Date Comments Alcohol Problem 10/04/2019 Spoke germain/Tayo corcoran d patient is on list Encounter Details Date Type Department Care Team (Late st Contact Info) Description 10/04/2019 Telephone [facility] Admitting [address] [place] [address] [place] [address] [address] Alcohol Problem (Spoke w/Tayo and patient [...] on file Legal Sex Female 4:05 AM GOLF TOURNAMENT CONSULTANT Gender Identity Not on file Sexual Orientation [...]
--- OUTSIDE RECORDS SUMMARY | 2024-12-23 17:48 | XMS_ITS | Encounter Summary ---
Author Organization [facility] Address [address] [place] [address] Care Team Providers Care Security Expert Name Role Phone Elen Kong MD Primary Care Provider [phone] Encounter Details Date Type Department Care Team (Late st Contact Info) Description 03/24/2007 Outpatient Historical [facility] Internal Medicine - [facility] [address] [address] [facility] [address] [place] [address] Mary Camacho MD Social History Tobacco Use Types Packs/Day Years Used Date Smoking Tobacco: Never Assessed Comments Unknown Sex and Gender Information Value Date Recorded Sex Assigned at Not on file Legal Sex Female 4:05 AM CARE CLINICIAN Gender Identity Not on file Sexual Orientation [...] documented as of this encounter Care Teams Security Expert Relationship Specialty Start Date End Date Elen Kong MD [address] [facility] [address] [place] [address] PCP - General Internal Medicine 07/21/17 11/13/18 documented as of this encounter
--- OUTSIDE RECORDS SUMMARY | 2024-12-23 17:48 | XMS_ITS | Encounter Summary ---
Author Organization [facility] Address [address] [place] [address] Care Team Providers Care Allergy Nurse Name Role Phone Elen Kong MD Primary Care Provider [phone] Encounter Details Date Type Department Care Team (Late st Contact Info) Description 09/26/2000 Outpatient Historical [facility] Internal Medicine - [facility] [address] [address] [facility] [address] [place] [address] Mary Camacho MD Social History Tobacco Use Types Packs/Day Years Used Date Smoking Tobacco: Never Assessed Comments Unknown Sex and Gender Information Value Date Recorded Sex Assigned at Not on file Legal Sex Female 4:05 AM SEXUAL ABUSE COUNSELLOR Gender Identity Not on file Sexual Orientation [...] documented as of this encounter Care Teams Allergy Nurse Relationship Specialty Start Date End Date Elen Kong MD [address] [facility] [address] [place] [address] PCP - General Internal Medicine 07/21/17 11/13/18 documented as of this encounter
--- OUTSIDE RECORDS SUMMARY | 2024-12-23 17:48 | XMS_ITS | Encounter Summary ---
Author Organization [facility] Address [address] [place] [address] Care Team Providers Care Prepared Foods Production Team Member Name Role Phone Elen Kong MD Primary Care Provider [phone] Encounter Details Date Type Department Care Team (Late st Contact Info) Description 07/21/2007 Outpatient Historical [facility] Internal Medicine - [facility] [address] [address] [facility] [address] [place] [address] Mary Camacho MD Social History Tobacco Use Types Packs/Day Years Used Date Smoking Tobacco: Never Assessed Comments Unknown Sex and Gender Information Value Date Recorded Sex Assigned at Not on file Legal Sex Female 4:05 AM MD PHYSICIAN DERMATOLOGIST Gender Identity Not on file Sexual Orientation [...] documented as of this encounter Care Teams Prepared Foods Production Team Member Relationship Specialty Start Date End Date Elen Kong MD [address] [facility] [address] [place] [address] PCP - General Internal Medicine 07/21/17 11/13/18 documented as of this encounter
--- OUTSIDE RECORDS SUMMARY | 2024-12-23 17:48 | XMS_ITS | Encounter Summary ---
Author Organization [facility] Address [address] [facility] Attn: Epic Prelude ADT MARGARITO ALLEN [address] Care Team Providers Care Oyster Sorter Name Role Phone Elen Kong MD Primary Care Provider [phone] Encounter Details Date Type Department Care Team (Latest Contact Info) Description 06/30/2007 Orders Only Mary Camacho MD Social History Tobacco Use Types Packs/Day Years Used Date Smoking Tobacco: Never Assessed Comments Unknown Sex and Gender Information Value Date Recorded Sex Assigned at Not on file Legal Sex Female 4:05 AM TECHNOLOGY INFUSION SPECIALIST Gender Identity Not on file Sexual Orientation Not on file documented as of this encounter Progress Notes * Interface, [facility] Conv Transcriptions - 09/21/2007 6:32 PM CDT TIME:12:19 pm PATIENT`S HOME PHONE: PATIENT`S WORK PHONE: PATIENT`S INSURANCE: MIC WHO TOOK THE CALL: Sierra Perez GENERAL INFORMATION PCP: yandel. ALTERNATIVE PHONE NUMBER: [phone] WHO CALLED: CURRENT ALLERGY LIST: COLD TABLETS -OTC ROBITUSSIN PHARMACY NUMBER: [facility] [phone] call father OTHER INFORMATION: Patient is not currently . Patient is not currently nursing.pt is on BCP PROBLEMS: Madelin is being released from [facility] on Tuesday- SECTION 1: REQUESTED ACTION spirdm [...] documented as of this encounter Care Teams Oyster Sorter Relationship Specialty Start Date End Date Elen Kong MD [address] [place] [address] [address] [place] [address] PCP - General Internal Medicine 07/21/17 11/13/18 documented as of this encounter
--- OUTSIDE RECORDS SUMMARY | 2024-12-23 17:48 | XMS_ITS | Encounter Summary ---
Author Organization [facility] Address [address] [place] [address] Care Team Providers Care Catalogue Librarian Name Role Phone Elen Kong MD Primary Care Provider [phone] Encounter Details Date Type Department Care Team (Late st Contact Info) Description 03/05/1998 Outpatient Historical [facility] Internal Medicine - [facility] [address] [address] [facility] [address] [place] [address] Mary Camacho MD Social History Tobacco Use Types Packs/Day Years Used Date Smoking Tobacco: Never Assessed Comments Unknown Sex and Gender Information Value Date Recorded Sex Assigned at Not on file Legal Sex Female 4:05 AM QUICK TECHNICIAN Gender Identity Not on file Sexual Orientation [...] documented as of this encounter Care Teams Catalogue Librarian Relationship Specialty Start Date End Date Elen Kong MD [address] [facility] [address] [place] [address] PCP - General Internal Medicine 07/21/17 11/13/18 documented as of this encounter
--- OUTSIDE RECORDS SUMMARY | 2024-12-23 17:48 | XMS_ITS | Encounter Summary ---
Author Organization [facility] Address [address] [facility] Attn: Epic Prelude ADT MARGARITO ALLEN [address] Care Team Providers Care Brim Blocker Name Role Phone Elen Kong MD Primary Care Provider [phone] Encounter Details Date Type Department Care Team (Latest Contact Info) Description 08/22/2007 Orders Only Mary Camacho MD Social History Tobacco Use Types Packs/Day Years Used Date Smoking Tobacco: Never Assessed Comments Unknown Sex and Gender Information Value Date Recorded Sex Assigned at Not on file Legal Sex Female 4:05 AM CAPTAIN OF GUARDS Gender Identity Not on file Sexual Orientation [...] documented as of this encounter Care Teams Brim Blocker Relationship Specialty Start Date End Date Elen Kong MD [address] [facility] [address] [place] [address] PCP - General Internal Medicine 07/21/17 11/13/18 documented as of this encounter
--- OUTSIDE RECORDS SUMMARY | 2024-12-23 17:48 | XMS_ITS | Encounter Summary ---
Author Organization [facility] Address [address] [place] [address] Care Team Providers Care Wireless Internet Installer Name Role Phone Elen Kong MD Primary Care Provider [phone] Encounter Details Date Type Department Care Team (Late st Contact Info) Description 02/04/1998 Outpatient Historical [facility] Internal Medicine - [facility] [address] [address] [facility] [address] [place] [address] Mary Camacho MD Social History Tobacco Use Types Packs/Day Years Used Date Smoking Tobacco: Never Assessed Comments Unknown Sex and Gender Information Value Date Recorded Sex Assigned at Not on file Legal Sex Female 4:05 AM PRINCIPAL SOFTWARE ARCHITECT Gender Identity Not on file Sexual Orientation [...] documented as of this encounter Care Teams Wireless Internet Installer Relationship Specialty Start Date End Date Elen Kong MD [address] [facility] [address] [place] [address] PCP - General Internal Medicine 07/21/17 11/13/18 documented as of this encounter
--- OUTSIDE RECORDS SUMMARY | 2024-12-23 17:48 | XMS_ITS | Encounter Summary ---
Author Organization [facility] Address [address] [place] [address] Care Team Providers Care Mural Artist Name Role Phone Elen Kong MD Primary Care Provider [phone] Encounter Details Date Type Department Care Team (Late st Contact Info) Description 06/18/1998 Outpatient Historical [facility] Internal Medicine - [facility] [address] [address] [facility] [address] [place] [address] Mary Camacho MD Social History Tobacco Use Types Packs/Day Years Used Date Smoking Tobacco: Never Assessed Comments Unknown Sex and Gender Information Value Date Recorded Sex Assigned at Not on file Legal Sex Female 4:05 AM MANAGER VIDEO Gender Identity Not on file Sexual Orientation [...] documented as of this encounter Care Teams Mural Artist Relationship Specialty Start Date End Date Elen Kong MD [address] [facility] [address] [place] [address] PCP - General Internal Medicine 07/21/17 11/13/18 documented as of this encounter
--- OUTSIDE RECORDS SUMMARY | 2024-12-23 17:48 | XMS_ITS | Encounter Summary ---
Author Organization [facility] Address [address] [place] [address] Care Team Providers Care Classroom Aide Name Role Phone Elen Kong MD Primary Care Provider [phone] Encounter Details Date Type Department Care Team (Late st Contact Info) Description 01/12/2007 Orders Only [facility] Internal Medicine - [facility] [address] [address] [facility] [address] [place] [address] Delia Murphy, ANP [address] [place] [address] Social History Tobacco Use Types Packs/Day Years Used Date Smoking Tobacco: Never Assessed Comments Unknown Sex and Gender Information Value Date Recorded Sex Assigned at Not on file Legal Sex Female 4:05 AM BENCH ASSEMBLY INSPECTOR Gender Identity Not on file Sexual Orientation [...] NEW PRESCRIPTION, 01/12/2007. LAB ORDERS: Order number: [id number] Test Ordered: HEPATIC FUNCTION PANEL [id number]-NONSUPPURATIVE [...] documented as of this encounter Care Teams Classroom Aide Relationship Specialty Start Date End Date Elen Kong MD [address] [place] [address] [place] [address] PCP - General Internal Medicine 07/21/17 11/13/18 documented as of this encounter
--- OUTSIDE RECORDS SUMMARY | 2024-12-23 17:48 | XMS_ITS | Encounter Summary ---
Author Organization [facility] Address [address] [place] [address] Care Team Providers Care Mixing Technician Name Role Phone Elen Kong MD Primary Care Provider [phone] Encounter Details Date Type Department Care Team (Late st Contact Info) Description 06/11/1998 Outpatient Historical [facility] Internal Medicine - [facility] [address] [address] [facility] [address] [place] [address] Mary Camacho MD Social History Tobacco Use Types Packs/Day Years Used Date Smoking Tobacco: Never Assessed Comments Unknown Sex and Gender Information Value Date Recorded Sex Assigned at Not on file Legal Sex Female 4:05 AM MEDIA AID Gender Identity Not on file Sexual Orientation [...] documented as of this encounter Care Teams Mixing Technician Relationship Specialty Start Date End Date Elen Kong MD [address] [facility] [address] [place] [address] PCP - General Internal Medicine 07/21/17 11/13/18 documented as of this encounter
--- OUTSIDE RECORDS SUMMARY | 2024-12-23 17:48 | XMS_ITS | Encounter Summary ---
Author Organization [employer] [facility] Address [address] [place] [address] Care Team Providers Care Airdox Fitter Name Role Phone Elen Kong MD Primary Care Provider [phone] Encounter Details Date Type Department Care Team (Late st Contact Info) Description 12/08/2008 Emergency [facility] Er, Authorized P NO ADDRESS ON FILE Kervin Rico MD [facility] [place] [address] Other and Unspecified Ovarian Cyst Social History Tobacco Use Types Packs/Day Years Used Date Smoking Tobacco: Never Alcohol Use Standard Drinks/Week Comments Not Asked 0 (1 standard drink = 0.6 oz pur e alcohol) Comments No Sex and Gender Information Value Date Recorded Sex Assigned at Not on file Legal Sex Female 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, [place] [address] Admit Date: 12/08/2008 YOHANA ROLDANIWONA Rosenberg Sex: F Admit Prov: ER, AUTHORIZED P Date: 1980 Primary Care Prov: MELITON VERA CMRN: [id number] [facility] SS[facility]: [id number] IMAGING SERVICES Ordering Prov: N/A Accession Number: [id number] Interpretation EXAM: CT ABDOMEN AND PELVIS, STONE [...] and oral contrast exam. . Dictated by: ELISEO DURÁN 12/08/2008 18:57 Electronically signed by: ELISEO DURÁN 12/08/2008 19:04 Transcribed: 12/08/2008 19:04 SJ Procedure Note Eliseo Durán - 12/08/2008 [facility] [address] [facility] [place], [place] [address] Admit Date: 12/08/2008 MICHAELA ROLDAN Sex: F Admit Prov: ER, JAMES P Date: 1980 Primary Care Prov: MELITON VERA CMRN: [id number] [facility] SS[facility]: [id number] IMAGING SERVICES Ordering Prov: N/A Interpretation EXAM: [...] POC , URINE (12/08/2008 6:13 PM CDT) [facility] , URINE POC Negative Negative [facility] CLIA LICENSE [id number] [facility] SPECIFIC GRAVITY UA 1.015 1.001 - 1.035 [facility] Urine specimen (specimen) 12/08/2008 6:13 PM CDT 12/08/2008 6:13 PM CDT us Authorized P Er POINT OF CARE TESTING Final Resu lt [facility] CLIA# [id number] [address] [place] [address] * (ABNORMAL) POC URINALYSIS DIPSTICK AUTOMATED (12/08/2008 6:13 PM CDT) [facility] LEUKOCYTE ESTERASE UA Negative Negative [facility] UROBILINOGEN UA Normal <=1 mg/dL [facility] SPECIFIC GRAVITY UA 1.015 1.001 - 1.030 [facility] GLUCOSE UA Negative Negative [facility] COLOR UA Yellow [facility] BILIRUBIN UA Negative Negative [facility] NITRITE UA Negative Negative [facility] PH UA 9.0(H) 5.0 - 8.0 [facility] KETONES UA Negative Negative [facility] CLIA LICENSE [id number] [facility] CLARITY UA Cloudy [facility] PROTEIN UA Negative Negative [facility] BLOOD UA Negative Negative [facility] COMMENT, URINE Test not chrgd/to repeat [facility] 12/08/2008 6:13 PM CDT 12/08/2008 6:13 PM CDT us Authorized P Er POINT OF CARE TESTING Edited [facility] CLIA# [id number] [address] [place] [address] * CBC WITH DIFFERENTIAL (12/08/2008 6:10 PM CDT) HEMOGLOBIN 13.3 11.8 - 14.8 g/dL [facility] RDW 12.9 11.5 - 14.5 % [facility] WBC 7.6 4.0 - 9.8 K/uL [facility] MCH 31.7 27.2 - 32.6 pg [facility] MPV 9.4 9.3 - 12.4 fL [facility] HEMATOCRIT 40.2 35.5 - 44.0 % [facility] RDW-STDEV 44.5 37.1 - 48.7 fL [facility] RBC 4.19 3.90 - 4.90 M/uL [facility] MCHC 33.1 31.5 - 35.5 % [facility] MCV 95.9 82.0 - 99.0 fL [facility] PLATELETS 262 140 - 350 K/uL [facility] EOSINOPHILS 2 0 - 7 % [facility] EOSINOPHIL ABSOLUTE 0.13 0.00 - 0.70 K/uL [facility] LYMPHOCYTES 42 16 - 45 % [facility] LYMPHOCYTE ABSOLUTE 3.19 0.70 - 4.50 K/uL [facility] BASOPHILS 0 0 - 2 % [facility] BASOPHILS ABSOLUTE 0.02 0.00 - 0.20 K/uL [facility] MONOCYTES 8 3 - 13 % [facility] MONOCYTE ABSOLUTE 0.59 0.10 - 1.30 K/uL [facility] NEUTROPHILS 48 45 - 70 % [facility] NEUTROPHIL ABSOLUTE 3.65 1.90 - 7.00 K/uL [facility] Blood specimen (specimen) 12/08/2008 6:10 PM CDT 12/08/2008 6:16 PM CDT Kervin Rico MD HEMATOLOGY ORDERABLES Edited Performing Organization Address [facility]/ZIP Co de Phone Number [facility] CLIA# [id number] [address] [place] [address] * C-REACTIVE PROTEIN (12/08/2008 6:10 PM CDT) Pathologist [facility] CRP <0.2 0.0 - 0.8 mg/dL [facility] Blood specimen (specimen) 12/08/2008 6:10 PM CDT 12/08/2008 6:16 PM CDT us Kervin Rico MD CHEMISTRY ORDERABLES Final Resu lt Performing Organization Address [facility] Co de Phone Number [facility] CLIA# [id number] [address] [facility] [facility] [place] [address] * (ABNORMAL) COMPREHENSIVE METABOLIC PANEL (12/08/2008 6:10 PM CDT) CALCIUM 8.5(L) 8.6 - 10.2 mg/dL [facility] CHLORIDE 100 96 - 108 mmol/L [facility] ALBUMIN 4.1 3.4 - 4.8 g/dL [facility] CREATININE 0.66 0.51 - 0.95 mg/dL [facility] SODIUM 137 135 - 145 mmol/L [facility] ALT 18 0 - 31 U/L [facility] ALKALINE PHOSPHATASE 57 35 - 104 U/L [facility] BILIRUBIN TOTAL 0.2 0.2 - 1.0 mg/dL [facility] CO2 27 22 - 30 mmol/L [facility] TOTAL PROTEIN 6.7 6.3 - 8.6 g/dL [facility] POTASSIUM 3.3(L) 3.5 - 4.9 mmol/L [facility] GLUCOSE 82 65 - 99 mg/dL [facility] AST 19 12 - 32 U/L [facility] BUN 9 6 - 20 mg/dL [facility] GFR, >60 >=60 mL/min/1. 7 sq meter [facility] GFR >60 >=60 mL/min/1. 7 sq meter [facility] Comment: Modification of Diet in Renal Disease (MDRD) study formula. Estimated GFR rate interpretative information for both Americans and non- Americans is available on the [facility] Intranet at: [email or web address] Select: Lab Policies and Procedures Select: Reference Ranges - GFR Blood specimen (specimen) 12/08/2008 6:10 PM CDT 12/08/2008 6:16 PM CDT us Kervin Rico MD CHEMISTRY ORDERABLES Edited [facility] CLIA# [id number] [address] [place] [address] * (ABNORMAL) URINALYSIS WITH MICROSCOPIC (12/08/2008 6:07 PM CDT) BILIRUBIN UA Negative Negative [facility] PROTEIN UA Trace(A) Negative [facility] AMORPHOUS CRYSTAL Moderate /HPF [facility] LEUKOCYTE ESTERASE UA Negative Negative [facility] RBC UA <1 0 - 4 /HPF [facility] SPECIFIC GRAVITY UA 1.015 1.001 - 1.035 [facility] GLUCOSE UA Negative Negative [facility] BLOOD UA Negative Negative [facility] COLOR UA Yellow [facility] NITRITE UA Negative Negative [facility] EPITHELIAL CELLS, URINE 0-2 /HPF [facility] UROBILINOGEN UA <1 <=1 mg/dL [facility] PH UA 8.5(H) 5.0 - 8.0 [facility] WBC UA <1 0 - 5 /HPF [facility] KETONES UA Negative Negative [facility] CLARITY UA Cloudy(A) Clear [facility] 12/08/2008 6:07 PM CDT 12/08/2008 6:19 PM CDT us Kervin Rico MD URINE ORDERABLES Final Result [facility] CLIA# [id number] [address] [facility] [address] documented in this encounter Visit Diagnoses Diagnosis Other and unspecified ovarian cyst documented in this encounter Additional Health Concerns Infection Onset Date Last Indicated Resolved Time R/O C. diff 07/08/2023 07/08/2023 07/08/2023 12:2 3 PM CDT C Diff 07/08/2023 07/08/2023 09/06/2023 1:16 AM CDT R/O C. diff 07/22/2024 07/22/2024 07/23/2024 7:46 AM CDT documented as of this encounter Care Teams Airdox Fitter Relationship Specialty Start Date End Date Elen Kong MD [address] [facility] [address] [place] [address] PCP - General Internal Medicine 07/21/17 11/13/18 documented as of this encounter
--- OUTSIDE RECORDS SUMMARY | 2024-12-23 17:48 | XMS_ITS | Encounter Summary ---
Author Organization [facility] Address [address] [place] [address] Care Team Providers Care Swaging Machine Adjuster Name Role Phone Elen Kong MD Primary Care Provider [phone] Encounter Details Date Type Department Care Team (Late st Contact Info) Description 05/16/1998 Outpatient Historical [facility] Internal Medicine - [facility] [address] [id number] [facility] [address] [place] [address] Mary Camacho MD Social History Tobacco Use Types Packs/Day Years Used Date Smoking Tobacco: Never Assessed Comments Unknown Sex and Gender Information Value Date Recorded Sex Assigned at Not on file Legal Sex Female 4:05 AM NEEDLE MAKER Gender Identity Not on file Sexual [...] documented as of this encounter Care Teams Swaging Machine Adjuster Relationship Specialty Start Date End Date Elen Kong MD [address] [facility] [address] [place] [address] PCP - General Internal Medicine 07/21/17 11/13/18 documented as of this encounter
--- OUTSIDE RECORDS SUMMARY | 2024-12-23 17:48 | XMS_ITS | Encounter Summary ---
Author Organization [facility] Address [address] [place] [address] Care Team Providers Care Napper Grinder Name Role Phone Elen Kong MD Primary Care Provider [phone] Encounter Details Date Type Department Care Team (Late st Contact Info) Description 11/22/1997 Outpatient Historical [facility] Internal Medicine - [facility] [address] [id number] [facility] [address] [place] [address] Mary Camacho MD Social History Tobacco Use Types Packs/Day Years Used Date Smoking Tobacco: Never Assessed Comments Unknown Sex and Gender Information Value Date Recorded Sex Assigned at Not on file Legal Sex Female 4:05 AM INVESTOR Gender Identity Not on file Sexual Orientation [...] documented as of this encounter Care Teams Napper Grinder Relationship Specialty Start Date End Date Elen Kong MD [address] [facility] [address] [place] [address] PCP - General Internal Medicine 07/21/17 11/13/18 documented as of this encounter
--- OUTSIDE RECORDS SUMMARY | 2024-12-23 17:48 | XMS_ITS | Encounter Summary ---
Author Organization [facility] Address [address] [place] [address] Care Team Providers Care Java Android Developer Name Role Phone Elen Kong MD Primary Care Provider [phone] Encounter Details Date Type Department Care Team (Late st Contact Info) Description 12/10/2008 Outpatient Historical [facility], [address] Mary Camacho MD [address] [place] [address] [place] [address] Urinary Tract Infection, Site not Specified Social History Tobacco Use Types Packs/Day Years Used Date Smoking Tobacco: Never Alcohol Use Standard Drinks/Week Comments Not Asked 0 (1 standard drink = 0.6 oz pur e alcohol) Comments No Sex and Gender Information Value Date Recorded Sex Assigned at Not on file Legal Sex Female 4:05 AM OUTBOUND CALL CENTER REPRESENTATIVE Gender Identity Not on file Sexual [...] documented as of this encounter Care Teams Java Android Developer Relationship Specialty Start Date End Date Elen Kong MD [address] [place] [address] [place] [address] PCP - General Internal Medicine 07/21/17 11/13/18 documented as of this encounter
--- OUTSIDE RECORDS SUMMARY | 2024-12-23 17:48 | XMS_ITS | Encounter Summary ---
Author Organization [facility] Address [address] [place] [address] Care Team Providers Care Component Design Engineer Name Role Phone Elen Kong MD Primary Care Provider [phone] Encounter Details Date Type Department Care Team (Late st Contact Info) Description 07/26/2007 Outpatient Historical [facility] Internal Medicine - [facility] [address] [address] [facility] [address] [place] [address] Mary Camacho MD Social History Tobacco Use Types Packs/Day Years Used Date Smoking Tobacco: Never Assessed Comments Unknown Sex and Gender Information Value Date Recorded Sex Assigned at Not on file Legal Sex Female 4:05 AM DINKER Gender Identity Not on file Sexual Orientation [...] documented as of this encounter Care Teams Component Design Engineer Relationship Specialty Start Date End Date Elen Kong MD [address] [facility] [address] [place] [address] PCP - General Internal Medicine 07/21/17 11/13/18 documented as of this encounter
--- OUTSIDE RECORDS SUMMARY | 2024-12-23 17:48 | XMS_ITS | Encounter Summary ---
Author Organization [facility] Address [address] [place] [address] Care Team Providers Care Water Fabricator Operator Name Role Phone Unavailable Primary Care Provider Unavailabl e Reason for Visit * Reason Onset Date Comments NAUSEA & LOSS OF APPETITE, E PALOMA ABUSE 10/04/2019 SPOKE WITH NICOL @ DR TALIA ESCOBAR'S OFFICE Encounter Details Date Type Department Care Team (Late st Contact Info) Description 10/04/2019 Telephone [facility] Admitting [address] [place] [address] [place] [address] [place] [address] NAUSEA & LOSS OF APPETITE, [...] on file Legal Sex Female 4:05 AM METAL MOULDER Gender Identity Not on file Sexual Orientation [...]
--- OUTSIDE RECORDS SUMMARY | 2024-12-23 17:48 | XMS_ITS | Encounter Summary ---
Author Organization [facility] Address [address] [place] [address] Care Team Providers Care Janitorial Assistant Name Role Phone Elen Kong MD Primary Care Provider Encounter Details Date Type Department Care Team (Late st Contact Info) Description 04/14/2001 Outpatient Historical [facility] Internal Medicine - [facility] [address] [address] [facility] [address] [place] [address] Mary Camacho MD Social History Tobacco Use Types Packs/Day Years Used Date Smoking Tobacco: Never Assessed Comments Unknown Sex and Gender Information Value Date Recorded Sex Assigned at Not on file Legal Sex Female 4:05 AM DIRECTOR OF CUSTOMER SERVICE Gender Identity Not on file Sexual Orientation [...] documented as of this encounter Care Teams Janitorial Assistant Relationship Specialty Start Date End Date Elen Kong MD [address] [facility] [address] [place] [address] PCP - General Internal Medicine 07/21/17 11/13/18 documented as of this encounter
--- OUTSIDE RECORDS SUMMARY | 2024-12-23 17:48 | XMS_ITS | Encounter Summary ---
Author Organization [facility] Address [address] [place] [address] Care Team Providers Care Bologna Lacer Name Role Phone Elen Kong MD Primary Care Provider [phone] Encounter Details Date Type Department Care Team (Late st Contact Info) Description 07/07/2007 Outpatient Historical [facility] Internal Medicine - [facility] [address] [address] [facility] [address] [place] [address] Mary Camacho MD Social History Tobacco Use Types Packs/Day Years Used Date Smoking Tobacco: Never Assessed Comments Unknown Sex and Gender Information Value Date Recorded Sex Assigned at Not on file Legal Sex Female 4:05 AM RAILROAD CONDUCTOR Gender Identity Not on file Sexual Orientation [...] documented as of this encounter Care Teams Bologna Lacer Relationship Specialty Start Date End Date Elen Kong MD [address] [facility] [address] [place] [address] PCP - General Internal Medicine 07/21/17 11/13/18 documented as of this encounter
--- OUTSIDE RECORDS SUMMARY | 2024-12-23 17:48 | XMS_ITS | Clinical Summary ---
Author Organization [facility] Address [address], [place] [address] Phone Care Team Providers Care Car Salesman Name Role Phone Ayush Barajas MD Primary Care Provider [phone] Allergies Active Allergy Reactions Criticality Noted Date [...] at bedtime (neuropathic pain). 30 capsule 4 Active ofloxacin (Floxin) 0.3 % otic solution Administer 3 drops into the right ear in the morning and at bedtime. 10 mL 4 Active Active Problems Problem Noted Date Diagnosed Date Encounter for hearing screening with abnormal fi ndings 03/26/2024 Right hip pain 05/22/2023 Assessment & Plan (05/22/2023 7:51 AM AIR TRAFFIC CONTROL EQUIPMENT REPAIRER): Right Hip XR ordered Advised to take tylenol as needed for pain/inflammation. Sinus congestion 05/22/2023 Assessment & Plan (05/22/2023 7:51 AM AIR TRAFFIC CONTROL EQUIPMENT REPAIRER): Zyrtec prescribed for sinus congesiton Ruptured ear [...] 01/03/2023 Bipolar I disorder with sue (HCC ([facility]) 01/03/2023 PTSD (post-traumatic stress disorder) 01/27/2021 01/03/2023 Major depressive disorder, recurrent 11/04/2020 01/03/2023 Assessment & Plan (09/20/2023 8:45 PM CDT): Continue wellbutrin as directed. Patient is following up with Dr. Melissa next week. Assessment & Plan (05/22/2023 7:53 AM AIR TRAFFIC CONTROL EQUIPMENT REPAIRER): Decreased Welbutrin dose from 300 to 150 [...] immediately prior to arrival in ED. - [facility] protocol - patient prefers not to [...] Diagnosed Date Resolved Date Depression 05/22/2023 09/19/2023 Immunizations Immunization Administration Dates Next Due DTaP 01/23/2006 Influenza, Unspecified 02/10/2021,01/22/2019,04/2012 Influenza, injectable, quadr ivalent, preservative free 05/17/2023,12/25/2019,05/03/2019 Influenza, split virus, triv alent, injectable, contains preservative 02/07/2013 Dallin SARS-CoV-2 Vaccination 09/01/2020 Novel [id number] 01/14/2014 PPD Test 03/26/2024 Pfizer Covid-19 mRNA, [...] Comments Blood Pressure 116/68 03/06/2024 8:50 AM AIR TRAFFIC CONTROL EQUIPMENT REPAIRER Pulse 67 03/06/2024 8:50 AM AIR TRAFFIC CONTROL EQUIPMENT REPAIRER Temperature 36.3 C (97.3 F) 03/06/2024 8:50 AM AIR TRAFFIC CONTROL EQUIPMENT REPAIRER Respiratory Rate 18 09/23/2018 8:50 AM CDT Oxygen Saturation 99% 03/06/2024 8:50 AM AIR TRAFFIC CONTROL EQUIPMENT REPAIRER Inhaled Oxygen Concentration - - Weight 54.1 kg (119 lb 3.2 oz) 03/06/2024 8:50 A M AIR TRAFFIC CONTROL EQUIPMENT REPAIRER Height 175.3 cm (5' 9) 03/06/2024 8:50 AM AIR TRAFFIC CONTROL EQUIPMENT REPAIRER Body Mass Index 17.6 03/06/2024 8:50 AM AIR TRAFFIC CONTROL EQUIPMENT REPAIRER Plan of Treatment Upcoming Encounters Date Type Department Care Team (Late st Contact Info) Description 03/12/2025 9:30 AM AIR TRAFFIC CONTROL EQUIPMENT REPAIRER Procedure Visit [facility] [address] [place] [address] Fide Gomez COY- [address] [place] [phone] Health Maintenance Due Date Last Done Comments MMR Vaccines (1 of 1 - Standard series) 1981 Varicella Vaccines (1 of 2 - 13+ 2-dose series) 1993 Hepatitis B Vaccines (1 of 3 - 19+ 3-dose series) 1999 Pneumococcal Vaccine: 0-49 Years (1 of 2 - PCV) 1999 Mammogram 2020 Pap Smear 08/22/2023 COVID-19 Vaccine (3 - 2024- season) 2024 05/17/2023, 09/01/2020 Influenza Vaccine (#1) 2024 , 02/10/2021, 12/25/2019, Additional history exists Well Adult Exam (Age 18+ Annual Physical) 03/06/2025 03/06/2024 Cervical Cancer Screening 03/06/2027 HPV/Cotest 03/06/2027 03/06/2024, 08/21/2020 DTaP/Tdap/Td Vaccines (6 - Td or Tdap) 08/21/2029 08/22/2019, 10/27/2018, 01/23/2006, Additional history exists Zoster Vaccines (1 of 2) 2030 Hepatitis C Screening Completed 10/27/2018 HIV Screening Completed 07/03/2022, 12/18, 08/21/2020, Additional history exists Hepatitis B Screening Completed 04/25/2024 , 10/27/2018, 10/27/2018, Additional history exists HIB Vaccines Aged Out No longer eligi ble based on patient's age to complete this topic HPV Vaccines (No Doses Required) Completed Hepatitis A Vaccines Aged Out No long [...] TO HPV 16,18/45 Routine 03/06/2024 2:30 PM AIR TRAFFIC CONTROL EQUIPMENT REPAIRER Encounter for screening for human papillomavirus (HPV) [...] REFLEX TO HPV 16,18/45 (03/06/2024 2:30 PM AIR TRAFFIC CONTROL EQUIPMENT REPAIRER) CLINICAL INFORMATION Routine exam [facility] 1 LMP [...] 1 Comment: YQ, CT(ASCP) CT screening location: [place] [address] [place] [address] ELECTRONICALLY SIGNED BY SEE NOTE [facility] 1 [...] HPV mRNA E6/E7 Not Detected Not Detected [facility] MARTAEXShahida Comment: Methodology: Verifying Specialist-Mediated Amplification This assay detects E6/E7 viral messenger RNA (mRNA) from 14 high-risk HPV types (16,18,31,33,35,39,45,51,52,56,58,59,66,68). Cervical sources are required for HPV testing. If a vaginal source from a patient who has had a total hysterectomy with removal of cervix was submitted, please contact the testing laboratory for alternative testing options. For additional information, please refer to http://Familiar.QuVIS/faq/VRI073m5 (This link if provided for information/ educational purposes only.) Swab Cervical swab / Unknown 03/06/2024 2:30 PM AIR TRAFFIC CONTROL EQUIPMENT REPAIRER 03/07/2024 6:15 AM AIR TRAFFIC CONTROL EQUIPMENT REPAIRER Narrative [facility] [place] - 03/16/2024 8:13 AM AIR TRAFFIC CONTROL EQUIPMENT REPAIRER FASTING:UNKNOWN FASTING: UNKNOWN Fide Gomez [facility] CYTOLOGY ORDERABLES Final Result [facility] [place] [address] [facility] [place] [address], [facility] 1 * HIV 1/2 ANTIGEN/ANTIBODY,FOURTH GENERATION W/RFL (08/21/2020 2:08 PM CDT) [facility] HIV 1/2 AG/AB NON-REACT CHINEDU NON-REACT CHINEDU [...] purpose. For additional information please refer to http://Familiar.Sungevity.FirmPlay/faq/DTC869 (This link is being provided for informational/ educational purposes only.) The performance of this assay has not been clinically validated in patients less than 2 years old. 08/21/2020 2:08 PM CDT 08/21/2020 2:08 PM CDT Janna Stevenson [facility] LAB BLOOD ORDERABLES Fi nal Result Performing Organization Address [facility] de Phone Number [facility] * HEPATITIS C ANTIBODY (10/27/2018 10:18 AM CDT) SIGNAL TO CUT-OFF 0.02 <1.00 [facility] Comment:HCV antibody was non -reactive. There is no laboratory evidence of HCV infection. In most cases, no further action is required. However, if recent HCV exposure is suspected, a test for HCV RNA (test code 93500) is suggested. For additional information please refer to http://education.QuVIS/faq/ZXK71f0 (This link is being provided for informational/ educational purposes only.) HEPATITIS C AB NON-REACTI VE NON-REACT CHINEDU [facility] 10/27/2018 10:1 8 AM CDT 10/27/2018 10:18 AM CDT Bryn Mock LAB BLOOD ORDERABLES Final Resul t Performing Organization Address [facility] de Phone Number [facility] * (ABNORMAL) HEPATITIS B SURFACE ANTIBODY QL (10/27/2018 10:18 AM CDT) HEPATITIS B SURF AB REACTIVE(A ) NON-REACTI VE [facility] 10/27/2018 10:1 8 AM CDT 10/27/2018 10:18 AM CDT Bryn Mock LAB BLOOD ORDERABLES Final Resul t Performing Organization Address [facility] de Phone Number [facility] from Last 3 Months or Most Recently Relevant to Health Maintenance Insurance [facility]LY [facility], [facility] [employer] BLUE Care Teams Car Salesman Relationship Specialty Start Date End Date Ayush Barajas MD [address] [place] [address] PCP - General Family Medicine 11/22/24
--- OUTSIDE RECORDS SUMMARY | 2024-12-23 17:48 | XMS_ITS | Patient Health Record ---
Author Organization [facility] Address [address] [facility] MICHAEL Garcia [id number] Care Team Providers Care Scoop Filler Name Role Phone Bhanu Nice Primary Care Provider Allergies Allergen (clinical drug ingredient) Drug/Non Drug Allergy documented on EMR Reaction Allergy Type Onset Date Status Levaquin Unknown Drug Allergy Active Reason For Referral No Information Medications Medication SIG (Take, Route, Frequency, Duration) Notes Start Date End Date Status Nuvigil 250mg 1 po qam *Pick strength-form from Dick or Bro for eRX* Active Doxepin HCl 25 mg capsule 3 cap(s) orally 3 times a day Active Cyclobenzaprine HCl 10 mg tablet 1 tab(s) orally 3 times a day; Duration: 0 08/20/2014 Active Social History Social History Additional Details Category Social Info Options Details Migrated Social History Migrated Social History (Alcohol:): How often did you have a drink containing alcohol in the past year? 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
--- OUTSIDE RECORDS SUMMARY | 2024-12-23 17:48 | XMS_ITS | Encounter Summary ---
Author Organization [facility] Address [address] [place] [address] Care Team Providers Care Medicine Aide Name Role Phone Elen Kong MD Primary Care Provider [phone] Encounter Details Date Type Department Care Team (Late st Contact Info) Description 02/19/1998 Outpatient Historical [facility] Internal Medicine - [facility] [address] [address] [facility] [address] [place] [address] Mary Camacho MD Social History Tobacco Use Types Packs/Day Years Used Date Smoking Tobacco: Never Assessed Comments Unknown Sex and Gender Information Value Date Recorded Sex Assigned at Not on file Legal Sex Female 4:05 AM KILN DRAWER Gender Identity Not on file Sexual Orientation [...] documented as of this encounter Care Teams Medicine Aide Relationship Specialty Start Date End Date Elen Kong MD [address] [facility] [address] [place] [address] PCP - General Internal Medicine 07/21/17 11/13/18 documented as of this encounter
--- OUTSIDE RECORDS SUMMARY | 2024-12-23 17:48 | XMS_ITS | Encounter Summary ---
Author Organization [facility] Address [address] [place] [address] Care Team Providers Care Apartment Maintenance Technician Name Role Phone Elen Kong MD Primary Care Provider [phone] Encounter Details Date Type Department Care Team (Late st Contact Info) Description 11/08/2000 Outpatient Historical [facility] Internal Medicine - [facility] [address] [address] [facility] [address] [place] [address] Mary Camacho MD Social History Tobacco Use Types Packs/Day Years Used Date Smoking Tobacco: Never Assessed Comments Unknown Sex and Gender Information Value Date Recorded Sex Assigned at Not on file Legal Sex Female 4:05 AM PEDIATRIC PHYSICIAN ASSISTANT Gender Identity Not on file Sexual Orientation [...] documented as of this encounter Care Teams Apartment Maintenance Technician Relationship Specialty Start Date End Date Elen Kong MD [address] [facility] [address] [place] [address] PCP - General Internal Medicine 07/21/17 11/13/18 documented as of this encounter
--- OUTSIDE RECORDS SUMMARY | 2024-12-23 17:48 | XMS_ITS | Encounter Summary ---
Author Organization [facility] Address [address] [place] [address] Care Team Providers Care Sergeant Of Corrections Name Role Phone Elen Kong MD Primary Care Provider [phone] Encounter Details Date Type Department Care Team (Late st Contact Info) Description 07/09/1998 Outpatient Historical [facility] Internal Medicine - [facility] [address] [address] [facility] [address] [place] [address] Mary Camacho MD Social History Tobacco Use Types Packs/Day Years Used Date Smoking Tobacco: Never Assessed Comments Unknown Sex and Gender Information Value Date Recorded Sex Assigned at Not on file Legal Sex Female 4:05 AM MEDIATION COMMISSIONER Gender Identity Not on file Sexual Orientation [...] documented as of this encounter Care Teams Sergeant Of Corrections Relationship Specialty Start Date End Date Elen Kong MD [address] [facility] [address] [place] [address] PCP - General Internal Medicine 07/21/17 11/13/18 documented as of this encounter
--- OUTSIDE RECORDS SUMMARY | 2024-12-23 17:48 | XMS_ITS | Encounter Summary ---
Author Organization [facility] Address [address] [place] [address] Care Team Providers Care Venetian Blind Washer Name Role Phone Elen Kong MD Primary Care Provider [phone] Encounter Details Date Type Department Care Team (Late st Contact Info) Description 08/08/1998 Outpatient Historical [facility] Internal Medicine - 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
--- OUTSIDE RECORDS SUMMARY | 2024-12-23 17:48 | XMS_ITS | Encounter Summary ---
Author Organization [facility] Address [address] [place] [address] Care Team Providers Care Marketing Operations Consultant Name Role Phone Elen Kong MD Primary Care Provider [phone] Encounter Details Date Type Department Care Team (Latest Contact Info) Description 03/05/2002 Outpatient Historical [facility] PATIENT IN A BED Lev Hook MD [address] [id number] [facility]PLIC REDUCER ORTHO [facility]ICE ([facility]) (Primary Dx) Social History Tobacco Use Types Packs/Day Years Used Date Smoking Tobacco: Never Assessed Comments Unknown Sex and Gender Information Value Date Recorded Sex Assigned at Not on file 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
--- OUTSIDE RECORDS SUMMARY | 2024-12-23 17:48 | XMS_ITS | Encounter Summary ---
Author Organization [facility] Address [address] [place] [address] Care Team Providers Care Resolution Agent Name Role Phone Elen Kong MD Primary Care Provider Encounter Details Date Type Department Care Team (Late st Contact Info) Description 07/23/2004 Outpatient Historical [facility] Internal Medicine - [facility] [address] [address] [facility] [address] [place] [address] Mary Camacho MD Social History Tobacco Use Types Packs/Day Years Used Date Smoking Tobacco: Never Assessed Comments Unknown Sex and Gender Information Value Date Recorded Sex Assigned at Not on file Legal Sex Female 4:05 AM 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
--- OUTSIDE RECORDS SUMMARY | 2024-12-23 17:48 | XMS_ITS | Encounter Summary ---
Author Organization [facility] Address [address] [place] [address] Care Team Providers Care Associate Professor Of Biblical Studies Name Role Phone Elen Kong MD Primary Care Provider [phone] Encounter Details Date Type Department Care Team (Late st Contact Info) Description 11/29/1997 Outpatient Historical [facility] Internal Medicine - [facility] [address] [address] [facility] [address] [place] [address] Mary Camacho MD Social History Tobacco Use Types Packs/Day Years Used Date Smoking Tobacco: Never Assessed Comments Unknown Sex and Gender Information Value Date Recorded Sex Assigned at Not on file 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
--- OUTSIDE RECORDS SUMMARY | 2024-12-23 17:48 | XMS_ITS | Encounter Summary ---
Author Organization [facility] Address [address] [place] [address] Care Team Providers Care Wastewater Treatment Plant Attendant Name Role Phone Elen Kong MD Primary Care Provider [phone] Encounter Details Date Type Department Care Team (Late st Contact Info) Description 08/30/2006 Outpatient Historical [facility] Internal Medicine - [facility] [address] [address] [facility] [address] [place] [address] Mary Camacho MD [facility] [place] [address] Social History Tobacco Use Types Packs/Day Years Used Date Smoking Tobacco: Never Assessed Comments Unknown Sex and Gender Information Value Date Recorded Sex Assigned at Not on file Legal Sex Female 4:05 AM CIPHER EXPERT Gender Identity Not on file Sexual Orientation [...] documented as of this encounter Care Teams Wastewater Treatment Plant Attendant Relationship Specialty Start Date End Date Elen Kong MD [address] [place] [address] [place] [phone] PCP - General Internal Medicine 07/21/17 11/13/18 documented as of this encounter
--- OUTSIDE RECORDS SUMMARY | 2024-12-23 17:48 | XMS_ITS | Encounter Summary ---
Author Organization [facility] Address [address] [place] [address] Care Team Providers Care Call Center Specialist Name Role Phone Elen Kong MD Primary Care Provider [phone] Encounter Details Date Type Department Care Team (Late st Contact Info) Description 07/14/2007 Orders Only [facility] Internal Medicine - [facility] [address] [address] [facility] [address] [place] [address] Delia Murphy, ANP [address] [facility] [address] [place] [address] Social History Tobacco Use Types Packs/Day Years Used Date Smoking Tobacco: Never Assessed Comments Unknown Sex and Gender Information Value Date Recorded Sex Assigned at Not on file Legal Sex Female 4:05 AM 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
--- OUTSIDE RECORDS SUMMARY | 2024-12-23 17:48 | XMS_ITS | Encounter Summary ---
Author Organization [facility] Address [address] [place] [address] Care Team Providers Care Construction Safety Manager Name Role Phone Elen Kong MD Primary Care Provider [phone] Encounter Details Date Type Department Care Team (Late st Contact Info) Description 07/26/2007 Outpatient Historical [facility] Internal Medicine - [facility] [address] [address] [facility] [address] [place] [address] Meliton Camacho MD Social History Tobacco Use Types Packs/Day Years Used Date Smoking Tobacco: Never Assessed Comments Unknown Sex and Gender Information Value Date Recorded Sex Assigned at Not on file Legal Sex Female 4:05 AM DIRECTOR APPOINTMENT Gender Identity Not on file Sexual Orientation [...] (07/29/2007 7:00 AM CDT) TSH 0.79 mIU/L [facility] Comment: REFERENCE RANGE: > OR = 20 YEARS: 0.40-4.50 RANGES FIRST TRIMESTER 0.20-4.70 SECOND TRIMESTER 0.30-4.10 THIRD TRIMESTER 0.40-2.70 Test Performed at: [facility] [address] [place] [address] SHIRA PADILLA MD Narrative Fullscreen [facility] - 07/29/2007 7:00 AM CDT Ordered by MELITON CAMACHO us Historical Provider CHEMISTRY ORDERABLES Final R esult [facility] [address] [place] [address] * CBC WITH DIFFERENTIAL (07/29/2007 7:00 AM CDT) WBC 7.6 3.8 - 10.8 Thousand/u L [facility] . [facility] RBC 4.44 3.80 - 5.10 Million/uL [facility] . [facility] HEMOGLOBIN 13.9 11.7 - 15.5 g/dL [facility] HEMATOCRIT 40.9 35.0 - 45.0 % [facility] . [facility] MCV 92.3 80.0 - 100.0 fL [facility] MCH 31.3 27.0 - 33.0 pg [facility] . [facility] MCHC 33.9 32.0 - 36.0 g/dL [facility] . [facility] RDW 13.8 11.0 - 15.0 % [facility] . [place] PLATELETS 333 140 - 400 Thousand/u L [facility] . [facility] NEUTROPHIL ABSOLUTE 4,735 1,500 - 7,800 cells/uL [facility] . [facility] LYMPHOCYTE ABSOLUTE 2,067 850 - 3,900 cells/uL [facility] MONOCYTE ABSOLUTE 578 200 - 950 cells/uL [facility] . [place] EOSINOPHIL ABSOLUTE 160 15 - 500 cells/uL [facility] BASOPHILS ABSOLUTE 61 0 - 200 cells/uL [facility] NEUTROPHIL 62.3 % [facility] LYMPHOCYTES 27.2 % [facility] . [facility] MONOCYTE 7.6 % [facility] EOSINOPHILS 2.1 % [facility] BASOPHILS 0.8 % [facility] Comment: Test Performed at: [facility] [place] [address] [facility] [address] SHIRA PADILLA MD Narrative [facility] - 07/29/2007 7:00 AM CDT Ordered by MELITON CAMACHO Historical Provider HEMATOLOGY ORDERABLES Final Result [facility] [address] [place] [address] * (ABNORMAL) COMPREHENSIVE METABOLIC PANEL (07/29/2007 7:00 AM CDT) GLUCOSE 99 65 - 99 mg/dL [facility] Comment:FASTING REFERENCE IN TERVAL BUN 5(L) 7 - 25 mg/dL [facility] CREATININE 0.74 0.50 - 1.20 mg/dL [facility] GFR >60 > OR = 60 mL/min/1.7 3m2 [facility] GFR, >60 > OR = 60 mL/min/1.7 3m2 [facility] BUN/CREAT RATIO 7 6 - 22 (calc) [facility] SODIUM 139 135 - 146 mmol/L [facility]. [facility] POTASSIUM 3.9 3.5 - 5.3 mmol/L [facility] . [facility] CHLORIDE 105 98 - 110 mmol/L [facility] . [facility] CO2 23 21 - 33 mmol/L [facility] . [facility] CALCIUM 9.2 8.6 - 10.2 mg/dL [facility]. [facility] TOTAL PROTEIN 7.4 6.2 - 8.3 g/dL [facility] ALBUMIN 4.5 3.6 - 5.1 g/dL [facility]. [facility] GLOBULIN 2.9 2.2 - 3.9 g/dL (calc) [facility]. [facility] ALBUMIN/GLOBULIN RATIO 1.6 1.0 - 2.1 (calc) [facility] BILIRUBIN TOTAL 0.5 0.2 - 1.2 mg/dL [facility] ALKALINE PHOSPHATASE 48 33 - 115 U/L [facility]. [facility] AST 12 10 - 30 U/L [facility]. [facility] ALT 6 6 - 40 U/L [facility] Comment: Test Performed at: [facility] [place] [address] [place] [address] SHIRA PADILLA MD Narrative [facility] - 07/29/2007 7:00 AM CDT Ordered by MELITON CAMACHO us Historical Provider CHEMISTRY ORDERABLES Final R esult [facility] [address] [place] [address] documented in this encounter Visit Diagnoses Not on filedocumented in this encounter Additional Health Concerns Infection Onset Date Last Indicated Resolved Time R/O C. diff 07/08/2023 07/08/2023 07/08/2023 12:2 3 PM CDT C Diff 07/08/2023 07/08/2023 09/06/2023 1:16 AM CDT R/O C. diff 07/22/2024 07/22/2024 07/23/2024 7:46 AM CDT documented as of this encounter Care Teams Construction Safety Manager Relationship Specialty Start Date End Date Elen Kong MD [address] [facility] [address] [place] [address] PCP - General Internal Medicine 07/21/17 11/13/18 documented as of this encounter
--- OUTSIDE RECORDS SUMMARY | 2024-12-23 17:48 | XMS_ITS | Encounter Summary ---
Author Organization [facility] Address [address] [place] [address] Care Team Providers Care Bevel Face Stoner And Polisher Name Role Phone Elen Kong MD Primary Care Provider [phone] Encounter Details Date Type Department Care Team (Late st Contact Info) Description 01/12/2007 Outpatient Historical [facility] Internal Medicine - [facility] [address] [address] [facility] [address] [place] [address] Mary Camacho MD Social History Tobacco Use Types Packs/Day Years Used Date Smoking Tobacco: Never Assessed Comments Unknown Sex and Gender Information Value Date Recorded Sex Assigned at Not on file Legal Sex Female 4:05 AM HEALTH PROGRAM SPECIALIST Gender Identity Not on file Sexual [...] documented as of this encounter Care Teams Bevel Face Stoner And Polisher Relationship Specialty Start Date End Date Elen Kong MD [address] [facility] [address] [place] [address] PCP - General Internal Medicine 07/21/17 11/13/18 documented as of this encounter
--- OUTSIDE RECORDS SUMMARY | 2024-12-23 17:48 | XMS_ITS | Encounter Summary ---
Author Organization [facility] Address [address] [place] [address] Care Team Providers Care Biomedical Electronics Technician Name Role Phone Elen Kong MD Primary Care Provider [phone] Encounter Details Date Type Department Care Team (Late st Contact Info) Description 07/01/1998 Outpatient Historical [facility] Internal Medicine - [facility] [address] [address] [facility] [address] [place] [address] Mary Camacho MD Social History Tobacco Use Types Packs/Day Years Used Date Smoking Tobacco: Never Assessed Comments Unknown Sex and Gender Information Value Date Recorded Sex Assigned at Not on file Legal Sex Female 4:05 AM AUTO PARKER Gender Identity Not on file Sexual Orientation [...] documented as of this encounter Care Teams Biomedical Electronics Technician Relationship Specialty Start Date End Date Elen Kong MD [address] [facility] [address] [place] [address] PCP - General Internal Medicine 07/21/17 11/13/18 documented as of this encounter
--- OUTSIDE RECORDS SUMMARY | 2024-12-23 17:48 | XMS_ITS | Encounter Summary ---
Author Organization [facility] Address [address] [place] [address] Care Team Providers Care Turner Machine Name Role Phone Elen Kong MD Primary Care Provider [phone] Encounter Details Date Type Department Care Team (Late st Contact Info) Description 10/05/2001 Outpatient Historical [facility] Internal Medicine - [facility] [address] [address] [facility] [address] [place] [address] Mary Camacho MD Social History Tobacco Use Types Packs/Day Years Used Date Smoking Tobacco: Never Assessed Comments Unknown Sex and Gender Information Value Date Recorded Sex Assigned at Not on file Legal Sex Female 4:05 AM FOOD SERVICE REPRESENTATIVE Gender Identity Not on file Sexual [...] documented as of this encounter Care Teams Turner Machine Relationship Specialty Start Date End Date Elen Kong MD [address] [facility] [address] [place] [address] PCP - General Internal Medicine 07/21/17 11/13/18 documented as of this encounter
--- OUTSIDE RECORDS SUMMARY | 2024-12-23 17:48 | XMS_ITS | Encounter Summary ---
Author Organization [facility] Address [address] [place] [address] Care Team Providers Care Community Mental Health Social Worker Name Role Phone Elen Kong MD Primary Care Provider [phone] Encounter Details Date Type Department Care Team (Late st Contact Info) Description 01/14/1998 Outpatient Historical [facility] Internal Medicine - [facility] [address] [address] [facility] [address] [place] [address] Mary Camacho MD Social History Tobacco Use Types Packs/Day Years Used Date Smoking Tobacco: Never Assessed Comments Unknown Sex and Gender Information Value Date Recorded Sex Assigned at Not on file 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
--- OUTSIDE RECORDS SUMMARY | 2024-12-23 17:48 | XMS_ITS | Encounter Summary ---
Author Organization [facility] Address [address] [place] [address] Care Team Providers Care Solid Glass Rod Dowel Machine Operator Name Role Phone Elen Kong MD Primary Care Provider [phone] Encounter Details Date Type Department Care Team (Late st Contact Info) Description 11/08/1997 Outpatient Historical [facility] Internal Medicine - [facility] [address] [address] [facility] [address] [place] [address] Mary Camacho MD Social History Tobacco Use Types Packs/Day Years Used Date Smoking Tobacco: Never Assessed Comments Unknown Sex and Gender Information Value Date Recorded Sex Assigned at Not on file Legal Sex Female 4:05 AM SOFTWARE APPLICATIONS DEVELOPER Gender Identity Not on file Sexual [...] documented as of this encounter Care Teams Solid Glass Rod Dowel Machine Operator Relationship Specialty Start Date End Date Elen Kong MD [address] [facility] [address] [place] [address] PCP - General Internal Medicine 07/21/17 11/13/18 documented as of this encounter
--- OUTSIDE RECORDS SUMMARY | 2024-12-23 17:48 | XMS_ITS | Encounter Summary ---
Author Organization [facility] Address [address] [place] [address] Care Team Providers Care Food Photographer Name Role Phone Elen Kong MD Primary Care Provider [phone] Encounter Details Date Type Department Care Team (Late st Contact Info) Description 03/24/2007 Outpatient Historical [facility] Internal Medicine - [facility] [address] [address] [facility] [address] [place] [address] Mary Camacho MD Social History Tobacco Use Types Packs/Day Years Used Date Smoking Tobacco: Never Assessed Comments Unknown Sex and Gender Information Value Date Recorded Sex Assigned at Not on file Legal Sex Female 4:05 AM SECURITY SCREENER Gender Identity Not on file Sexual Orientation [...] documented as of this encounter Care Teams Food Photographer Relationship Specialty Start Date End Date Elen Kong MD [address] [facility] [address] [place] [address] PCP - General Internal Medicine 07/21/17 11/13/18 documented as of this encounter
--- OUTSIDE RECORDS SUMMARY | 2024-12-23 17:48 | XMS_ITS | Encounter Summary ---
Author Organization [facility] Address [address] [place] [address] Care Team Providers Care Senior Mechanical Project Manager Name Role Phone Elen Kong MD Primary Care Provider [phone] Encounter Details Date Type Department Care Team (Late st Contact Info) Description 01/21/1998 Outpatient Historical [facility] Internal Medicine - [facility] [address] [address] [facility] [address] [place] [address] Mary Camacho MD Social History Tobacco Use Types Packs/Day Years Used Date Smoking Tobacco: Never Assessed Comments Unknown Sex and Gender Information Value Date Recorded Sex Assigned at Not on file Legal Sex Female 4:05 AM SOAKER MEAT Gender Identity Not on file Sexual Orientation [...] as of this encounter Care Teams Senior Mechanical Project Manager Relationship Specialty Start Date End Date Elen Kong MD [address] [facility] [address] [place] [address] PCP - General Internal Medicine 07/21/17 11/13/18 documented as of this encounter
--- OUTSIDE RECORDS SUMMARY | 2024-12-23 17:48 | XMS_ITS | Encounter Summary ---
Author Organization [facility] Address [address] [place] [address] Care Team Providers Care Asset Protection Officer Name Role Phone Elen Kong MD Primary Care Provider [phone] Encounter Details Date Type Department Care Team (Late st Contact Info) Description 11/18/2004 Outpatient Historical [facility] Internal Medicine - [facility] [address] [address] [facility] [address] [place] [address] Mary Camacho MD Social History Tobacco Use Types Packs/Day Years Used Date Smoking Tobacco: Never Assessed Comments Unknown Sex and Gender Information Value Date Recorded Sex Assigned at Not on file Legal Sex Female 4:05 AM DISTRICT HOME ECONOMICS AGENT Gender Identity Not on file Sexual [...] as of this encounter Care Teams Asset Protection Officer Relationship Specialty Start Date End Date Elen Kong MD [address] [facility] [address] [place] [address] PCP - General Internal Medicine 07/21/17 11/13/18 documented as of this encounter
--- OUTSIDE RECORDS SUMMARY | 2024-12-23 17:48 | XMS_ITS | Encounter Summary ---
Author Organization [facility] Address [address] [place] [address] Care Team Providers Care Company Controller Name Role Phone Elen Kong MD Primary Care Provider [phone] Encounter Details Date Type Department Care Team (Late st Contact Info) Description 09/06/2001 Outpatient Historical [facility] Internal Medicine - [facility] [address] [address] [facility] [address] [place] [address] Mary Camacho MD Social History Tobacco Use Types Packs/Day Years Used Date Smoking Tobacco: Never Assessed Comments Unknown Sex and Gender Information Value Date Recorded Sex Assigned at Not on file Legal Sex Female 4:05 AM SLIP MAKER Gender Identity Not on file Sexual [...] documented as of this encounter Care Teams Company Controller Relationship Specialty Start Date End Date Elen Kong MD [address] [facility] [address] [place] [address] PCP - General Internal Medicine 07/21/17 11/13/18 documented as of this encounter
--- OUTSIDE RECORDS SUMMARY | 2024-12-23 17:48 | XMS_ITS | Encounter Summary ---
Author Organization [facility] Address [address] [place] [address] Care Team Providers Care Composition Worker Name Role Phone Elen Kong MD Primary Care Provider [phone] Encounter Details Date Type Department Care Team (Late st Contact Info) Description 04/08/1998 Outpatient Historical [facility] Internal Medicine - [facility] [address] [address] [facility] [address] [place] [address] Mary Camacho MD Social History Tobacco Use Types Packs/Day Years Used Date Smoking Tobacco: Never Assessed Comments Unknown Sex and Gender Information Value Date Recorded Sex Assigned at Not on file Legal Sex Female 4:05 AM CORRECTIONAL CORPORAL Gender Identity Not on file Sexual Orientation [...] documented as of this encounter Care Teams Composition Worker Relationship Specialty Start Date End Date Elen Kong MD [address] [facility] [address] [place] [address] PCP - General Internal Medicine 07/21/17 11/13/18 documented as of this encounter
--- OUTSIDE RECORDS SUMMARY | 2024-12-23 17:48 | XMS_ITS | Clinical Summary ---
Author Organization [facility] Address [address] [address] Care Team Providers Care Personnel Research Scientist Name Role Phone Unknown, Provider Unavailable Unavailable Bryn Cervantes MD Primary Care Provider [phone] Source Comments [facility],non-owned Affiliates and Associated Physician Practices is amultiple site organization consisting of ambulatory clinics and hospital sitesin [place], [place], [place] and [place]. This disclosure is being madepursuant to the Care Everywhere program and may not contain all information available regarding this patient. Last updated 18.[facility] Allergies Active Allergy Reactions Criticality Noted Date Comments Amoxicillin Itching 02/21/2023 Amphetamine-Dextroamphetam ine 03/26/2015 Prescription drug abuse, medical non-compliance Bupropion Seizures High 10/12/20132010, 2014 Tolerating SR 150 mg dose per psych 2016. Dextromethorphan Hbr Other 09/30/2006 Escitalopram Itching 07/09/2020 Note: Itching Gabapentin Swelling Medium 06/30/2022 Levofloxacin Angioedema High 08/23/2016 Levofloxacin 08/28/2013 Summers Nausea and/or Vomiting Low 04/17/2014 Codeine 03/26/2015 [...] 1 (one) tablet by mouth once daily Reasons: Nutritional Support 3 Active risperiDONE (RisperDAL) 3 MG tabletIndicatio ns:Manic Phase of Bipolar Mood Disorder Take 1 (one) tablet by mouth at bedtime Reasons: Manic Phase of Manic-Depression 30 tablet 1 5 Active Additional Information Patient not taking.Reason: Provider adjusted, Reported on 09/29/2024 thiamine (Vitamin B-1) 100 MG tablet Take 1 (one) tablet by mouth once daily 5 Active folic acid (Folvite) 1 MG tablet Take 1 (one) tablet by mouth once daily 5 Active Active Problems Problem Noted Date Diagnosed Date Alcoholic gastritis 10/01/2024 Nausea and vomiting, unspecified vomiting type 0 09/29/2024 Alcohol withdrawal syndrome without complication 09/29/2024 Alcohol-induced acute pancre atitis without infection or necrosis 09/29/2024 Bipolar I disorder, most rec ent episode [...] but this has not been confirmed with [facility] records - No outpatient psych meds per [facility] chart and providers - Follow up as outpatient Assessment & Plan (01/10/2020 1:32 PM CDT): Patient with several diagnoses on problem list including depression, anxiety, and bipolar I disorder. She states that she is not taking any medication but this has not been confirmed with [facility] records - Check HC med list - Talk with Dr. Lombardi [...] CDT): - Librium 25 mg q24h - WA protocol - Ativan 2 mg for scores >8 - Ativan 4 mg for seizures - Regular diet - Folate, MV, Thiamine supplementation - Consults to asbestos brake lining finisher, social sciences department chair, and nutrition - PT/OT to prevent deconditioning [...] Folate, MV, Thiamine supplementation - Consults to asbestos brake lining finisher, social sciences department chair, and nutrition - PT/OT to prevent deconditioning [...] CDT): - Librium 25 mg q12h - CIWA protocol - Ativan 2 mg for scores >8 - Ativan 4 mg for seizures - Regular diet - Folate, MV, Thiamine supplementation - Consults to asbestos brake lining finisher, social sciences department chair, and nutrition - PT/OT to prevent deconditioning while inpatient - Fall/Seizure/Aspiration precautions - Zofran and Reglan PRN - Follow up with Dr. Cervantes and Dr. Melissa at discharge - Interested in [facility] after discharge - Also interested in discharging with [facility]am[facility] Assessment & Plan (01/14/2020 12:56 PM CDT): - Librium 25 mg q8h -- no changes today - CIWA protocol - Ativan 2 mg for scores >8 - Ativan 4 mg for seizures - Discontinue telemetry - Regular diet - Folate, MV, Thiamine supplementation - Consults to asbestos brake lining finisher, social sciences department chair, and nutrition - PT/OT to prevent deconditioning [...] Folate, MV, Thiamine supplementation - Consults to asbestos brake lining finisher, social sciences department chair, and nutrition - PT/OT to prevent deconditioning [...] Folate, MV, Thiamine supplementation - Consults to asbestos brake lining finisher, social sciences department chair, and nutrition - PT/OT to prevent deconditioning [...] Folate, MV, Thiamine supplementation - Consults to asbestos brake lining finisher, social sciences department chair, and nutrition - PT/OT to prevent deconditioning [...] Folate, MV, Thiamine supplementation - Consults to asbestos brake lining finisher, social sciences department chair, and nutrition - PT/OT to prevent deconditioning [...] fullness 04/17/2014 01/09/2020 Anorexia 09/16/2004 01/17/2020 Encounters Date Type Department Care Team Description 10/02/2024 Telephone [facility] PHYSICIAN STD [address] [id number] Divya Delgado RN Results 09/29/2024 7:19 AM CDT - 10/01/2024 3:03 PM CDT Hospital Encounter [facility] 3 Intermediate Care Unit [address] [address] Иван uLcero MD Tanguturi, MD Alvarado Shah, MD Jousé Bonilla, Victor M Hastings III, Hospitalist Discharge Disposition: Other Facility Not Defined Elsewhere 09/29/2024 Travel from Last 3 Months Immunizations Immunization Administration Dates Next Due INFLUENZA VACCINE, TRIV. (AF LURIA, FLUZONE TRIVALENT; 6MO+) (IIV3) 02/16/2013 DTaP VACCINE IM (6wk-6yrs) 01/23/2006 INFLUENZA A L9U0-21 VACCINE 01/14/2014 INFLUENZA A6R9-99, HISTORIC VACCINE 01/14/2014 INFLUENZA VACCINE 02/10/2021,01/22/2019,02/17/20 13 [...] often do you have a drink containing alc ohol? 2-3 times a week 09/29/2024 Q2: How many drinks containi ng alcohol do you have on a typical day when you are drinking? 3 or 4 09/29/2024 Q3: How often do you have si x or more drinks on one occasion? Less than monthly 09/29/2024 Overall Financial Resource Strain (CARDIA) Answe r Date Recorded How hard is it for you to pa y for the very basics like food, housing, medical care, and heating? Not hard at all 10/01/2024 [facility] [place] [facility] Occup[facility] - Occupational Stress Questionnaire Answer Date Recorded Do you feel stress - tense, restless, nervous, or anxious, or unable to sleep at night because your mind is troubled all the time - these days? Very much 09/30/2024 Hunger Vital Sign Answer Date Recorded Within the past 12 months, y ou worried that your food would run out before you got the money to buy more. Never true 10/02/19 25 Within the past 12 months, t he food you bought just didn't last and you didn't have money to get more. Never true 10/01/2024 PRAPARE - Transportation Answer Date Re corded In the past 12 months, has l ack of transportation kept you from medical appointments or from getting medications? Yes 09/16 In the past 12 months, has l ack of transportation kept you from meetings, work, or from getting things needed for daily living? Yes 09/30/2024 Housing Stability Vital Sign Answer Naren e Recorded In the last 12 months, was t here a time when you were not able to pay the mortgage or rent on time? Yes 09/30/2024 In the past 12 months, how m any times have you moved where you were living? 12 09/30/2024 At any time in the past 12 m [facility], were you homeless or living in a long-term (including now)? 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 Not on file Not o n file Last Filed Vital Signs Vital Sign Reading Time Taken Comments Blood Pressure 111/69 10/01/2024 11:46 AM CDT Pulse 76 10/01/2024 11:46 AM CDT Temperature 36.3 C (97.3 F) 10/01/2024 11:46 AM CDT Respiratory Rate 16 10/01/2024 11:46 AM CDT Oxygen Saturation 95% 10/01/2024 11:46 AM CDT Inhaled Oxygen Concentration - - Weight 57 kg (125 lb 9.6 oz) 09/30/2024 3:23 AM CDT Height 175.3 cm (5' 9) 09/29/2024 1:29 PM CDT Body Mass Index 18.55 09/29/2024 1:29 PM CDT Plan of Treatment Health Maintenance Due Date Last Done Comments MAMMOGRAM 1980 HEPATITIS B VACCINE (1 of 3 - 19+ 3-dose series) 1999 HPV VACCINE (1 - 3-dose SCDM series) 2007 COVID-19 VACCINE ( - season) 2024 05/17/2023, 09/01/2020 INFLUENZA VACCINE (#1) 2024 , 02/10/2021, 12/25/2019, Additional history exists PAP SMEAR 03/06/2027 03/06/2024 LIPID TESTING 07/28/2029 07/28/2024, 06/17, 04/13/2024, Additional history exists DTAP/TDAP/TD VACCINES (5 - [...] Procedure Name Priority Date/Time Associated Diagnosis Comments CARDIAC EKG ORDER 10/01/2024 7:3 3 PM CDT CBC W/O DIFFERENTIAL Routine 09/30/2024 4:05 AM CDT Alcohol-induced acute pancreatitis, unspecified complication status (HCC) BASIC METABOLIC PANEL (CALCIUM TOTAL) Routine 09/30/2024 4:05 AM CDT Hypokalemia URINALYSIS REFLEX TO MICROSCOPIC NO CULTURE STAT 09/29/2024 10:[address] ABDOMEN PELVIS W CONTRAST STAT 09/29/2024 8:35 AM CDT Nausea and vomiting, unspecified vomiting type HCG BLOOD QUALITATIVE STAT 09/29/2024 7:40 AM CDT MAGNESIUM BLOOD STAT 09/29/2024 7:40 AM CDT LIPASE BLOOD STAT 09/29/2024 7:40 AM CDT COMPREHENSIVE METABOLIC PANEL STAT 09/29/2024 7:40 AM CDT CBC W AUTO DIFFERENTIAL STAT 09/29/2024 7:40 AM CDT EKG 12-LEAD STAT 09/29/2024 7:35 AM CDT Nausea and vomiting, unspecified vomiting type LIPID PROFILE AM Draw 07/10/2024 8:34 AM CDT HIV-1 HIV-2 ANTIBODY + HIV P24 AG PANEL STAT 01/13/2021 11:16 PM CDT from Last 3 Months or Most Recently Relevant to Health Maintenance Results * CARDIAC EKG ORDER (10/01/2024 7:33 PM CDT) Narrative 10/01/2024 7:33 PM CDT Ordered by an unspecified provider. us Scanned Document CARDIAC SERVICES ORDERABLES Fin al Result * (ABNORMAL) CBC W/O DIFFERENTIAL (09/30/2024 4:05 AM CDT) WBC 7.1 4.0 - 10.7 x10E9/L 09/30/2024 4:16 AM CDT [facility] RBC Count 2.94(L) 3.90 - 5.20 x10E12/L 09/30/2024 4:16 AM CDT [facility] Hemoglobin 9.1(L) 11.9 - 15.8 g/dL 09/30/2024 4:16 AM CDT [facility] Hematocrit 28.5(L) 34.8 - 46.1 % 09/30/2024 4:16 AM CDT [facility] MCV 96.9 80.0 - 98.0 fL 09/30/2024 4:16 AM CDT [facility] MCH 31.0 26.7 - 33.6 pg 09/30/2024 4:16 AM CDT [facility] MCHC 31.9 31.7 - 36.3 g/dL 09/30/2024 4:16 AM CDT [facility] RDW-CV 16.2(H) 11.3 - 14.8 % 09/30/2024 4:16 AM CDT [facility] Platelet Count 112(L) 150 - 420 x10E9/L 09/30/2024 4:16 AM CDT [facility] MPV 9.7 7.8 - 11.4 fL 09/30/2024 4:16 AM CDT [facility] Blood BLOOD SPECIMEN / Unknown Lab Venipuncture / Unknown 09/30/2024 4:05 AM CDT 09/30/2024 4:13 AM CDT us Alyssa Cuevas MD LAB - HEMATOLOGY ORDERABLES Final Result Performing Organization Address City/[facility]/ZIP Co de Phone Number [facility] [address] [address] * (ABNORMAL) BASIC METABOLIC PANEL (CALCIUM TOTAL) (09/30/2024 4:05 AM CDT) [facility] Glucose 122(H) 70 - 99 mg/dL 09/30/2024 4:33 AM CDT [facility] Sodium 136 136 - 145 mmol/L 09/30/2024 4:33 AM CDT [facility] Potassium 3.2(L) 3.5 - 5.1 mmol/L 09/30/2024 4:33 AM CDT [facility] Chloride 106 98 - 107 mmol/L 09/30/2024 4:33 AM CDT [facility] CO2 24 22 - 29 mmol/L 09/30/2024 4:33 AM T [facility] Calcium 7.5(L) 8.4 - 10.4 mg/dL 09/30/2024 4:33 AM T [facility] Anion Gap 6 6 - 16 mmol/L 09/30/2024 4:33 AM T [facility] BUN 3(L) 5.3 - 18.7 mg/dL 09/30/2024 4:33 AM T [facility] Creatinine 0.57 0.57 - 1.11 mg/dL 09/30/2024 4:33 AM T [facility] eGFR by CKD-EPI >90 >=90 mL/min/1.7 3 m2 09/30/2024 4:33 AM T [facility] Blood BLOOD SPECIMEN / Unknown Lab Venipuncture / Unknown 09/30/2024 4:05 AM CDT 09/30/2024 4:13 AM CDT us Alyssa Cuevas MD LAB - CHEMISTRY ORDERABLES F inal Result Performing Organization Address City/[facility]/ZIP Co de Phone Number [facility] [address] [address] * (ABNORMAL) URINALYSIS REFLEX TO MICROSCOPIC NO CULTURE (09/29/2024 10:31 AM CDT) Color UA Yellow Yellow, Straw 09/29/2024 10:45 AM CDT [facility] Clarity UA Clear Clear 09/29/2024 10:45 AM CDT [facility] Glucose UA Normal Normal 09/29/2024 10:45 AM CDT [facility] Bilirubin UA Negative Negative 09/29/2024 10:45 AM CDT [facility] Ketone UA Negative Negative 09/29/2024 10:45 AM CDT [facility] Specific Cullen UA 1.039(H) 1.005 - 1.030 09/29/2024 10:45 AM CDT [facility] Blood UA Negative Negative 09/29/2024 10:45 AM CDT [facility] pH UA 6.5 5.0 - 8.0 09/29/2024 10:45 AM CDT [facility] Protein UA Negative Negative 09/29/2024 10:45 AM CDT [facility] Urobilinogen UA Normal Normal mg/dL 09/29/2024 10:45 AM T [facility] Nitrite UA Negative Negative 09/29/2024 10:45 AM CDT [facility] Leukocyte Esterase UA Negative Negative 09/29/2024 10:45 AM [facility] Urine Microscopy Urine microscopy not indicated 09/29/2024 10:45 AM [facility] Urine URINE SPECIMEN OBTAINED BY CLEAN CATCH PROCEDURE / Unknown Collection / Unknown 09/29/2024 10:31 AM CDT 09/29/2024 10:41 AM CDT us Иван Lucero MD LAB - URINALYSIS ORDERABLE S Final Result [facility] [address] [place] [address] * CT ABDOMEN PELVIS W CONTRAST (09/29/2024 8:35 AM CDT) Anatomical Region Laterality Modality Abdomen, Pelvis Computed Tomogra phy 09/29/2024 8:42 AM CDT Impressions 09/29/2024 8:46 AM CDT Impression: Altered left renal perfusion with left urothelial thickening concerning for pyelonephritis/urinary tract infection. Hepatic steatosis, advanced. Inflammatory changes adjacent to the left pararenal fat. Given the hepatic steatosis, recommend correlation with pancreatic enzymes however possibility of mild pancreatitis. > Interpreting Provider: Gurpreet Mullen MD on 09/29/2024 8:46 AM Narrative 09/29/2024 8:46 AM CDT PROCEDURE: CT ABDOMEN PELVIS W CONTRAST DATE/TIME OF EXAM: 09/29/2024 8:37 AM CLINICAL INFORMATION: Nausea and vomiting Indication: R11.2: Nausea and vomiting, unspecified vomiting type Additional History: COMPARISON: None. TECHNIQUE: CT of the abdomen and pelvis was performed following intravenous contrast utilizing standard protocol. CT dose reduction technique was used, including Automated Exposure Control. CONTRAST: IOPAMIDOL 76 % IV SOLN:70 mL FINDINGS: Breast prostheses. Basilar dependent atelectasis. There is no pericardial or pleural effusion. Hepatic steatosis is advanced.. No splenomegaly. No peripancreatic inflammatory change. Slight thickening of the anterior pararenal fascia. I do not know if this is related to the kidney or related the pancreas. Recommend correlation with pancreatic enzymes. The duodenal sweep appearance is normal. This examination is not sensitive in assessment process for mucosal pathology.. No adrenal enlargement. The kidneys show some small areas of decreased cortical perfusion on the left. This can be seen with pyelonephritis. Recommend correlation with urinalysis. In addition, there is left urothelial thickening which is also a sign of an ascending urinary tract infection. No stone down the pathway of the left ureter. No small bowel transition zone. Small bowel fluid suggesting ileus. No pericolonic inflammatory changes. No dilated or inflamed appearing appendix evident. No generalized colonic wall thickening. The pelvis the bladder wall thickness is upper normal. Again, recommend correlation with urinalysis. The uterus is small. No inguinal, obturator, or iliac chain adenopathy. No femoral head collapse or bone destructive process. Procedure Note Gurpreet Mullen MD - 09/29/2024 PROCEDURE: CT ABDOMEN PELVIS W CONTRAST DATE/TIME OF EXAM: 09/29/2024 8:37 AM CLINICAL INFORMATION: Nausea and vomiting Indication: R11.2: Nausea and vomiting, unspecified vomiting type Additional History: COMPARISON: None. TECHNIQUE: CT of the abdomen and pelvis was performed following intravenouscontrast utilizing standard protocol. CT dose reduction technique was used, including Automated ExposureControl. CONTRAST: IOPAMIDOL 76 % IV SOLN:70 mL FINDINGS: Breast prostheses. Basilar dependent atelectasis. There is nopericardial or pleural effusion. Hepatic steatosis is advanced.. No splenomegaly. No peripancreatic inflammatory change. Slight thickening of the anterior pararenal fascia.I do not know if this is related to the kidney or related the pancreas. Recommend correlation with pancreatic enzymes. The duodenal sweep appearance is normal. This examination is not sensitive in assessment process for mucosal pathology.. No adrenal enlargement. The kidneys show some small areas of decreased cortical perfusion on the left. This can be seen with pyelonephritis. Recommend correlation with urinalysis. In addition, there is left urothelial thickening which isalso a sign of an ascending urinary tract infection. No stone down thepathway of the left ureter. No small bowel transition zone. Small bowel fluid suggesting ileus. No pericolonic inflammatory changes. No dilated or inflamed appearingappendix evident. No generalized colonic wall thickening. The pelvis the bladder wall thickness is upper normal. Again, recommend correlation with urinalysis. The uterus is small. No inguinal,obturator, or iliac chain adenopathy. No femoral head collapse or bone destructive process. Impression: Altered left renal perfusion with left urothelial thickening concerning for pyelonephritis/urinary tract infection. Hepatic steatosis, advanced. Inflammatory changes adjacent to the left pararenal fat. Given thehepatic steatosis, recommend correlation with pancreatic enzymes however possibility of mild pancreatitis. > Interpreting Provider: Gurpreet Mullen MD on 09/29/2024 8:46 AM us Иван Lucero MD CT ORDERABLES Final Resu lt * (ABNORMAL) CBC W AUTO DIFFERENTIAL (09/29/2024 7:40 AM CDT) WBC 9.3 4.0 - 10.7 x10E9/L 09/29/2024 8:00 AM CDT [facility] RBC Count 3.79(L) 3.90 - 5.20 x10E12/L 09/29/2024 8:00 AM CDT [facility] Hemoglobin 11.7(L) 11.9 - 15.8 g/dL 09/29/2024 8:00 AM CDT [facility] Hematocrit 36.0 34.8 - 46.1 % 09/29/2024 8:00 AM [facility] MCV 95.0 80.0 - 98.0 fL 09/29/2024 8:00 AM [facility] MCH 30.9 26.7 - 33.6 pg 09/29/2024 8:00 AM [facility] MCHC 32.5 31.7 - 36.3 g/dL 09/29/2024 8:00 AM [facility] RDW-CV 16.2(H) 11.3 - 14.8 % 09/29/2024 8:00 AM [facility] Platelet Count 141(L) 150 - 420 x10E9/L 09/29/2024 8:00 AM [facility] MPV 9.7 7.8 - 11.4 fL 09/29/2024 8:00 AM [facility] Neutrophil % 69.8 41.0 - 74.0 % 09/29/2024 8:00 AM [facility] Lymphocyte % 17.8 17.0 - 47.0 % 09/29/2024 8:00 AM [facility] Monocyte % 11.3(H) 3.0 - 11.0 % 09/29/2024 8:00 AM [facility] Eosinophil % 0.2 0.0 - 7.0 % 09/29/2024 8:00 AM [facility] Basophil % 0.4 0.0 - 1.6 % 09/29/2024 8:00 AM [facility] Immature Granulocytes % 0.5 0.0 - 1.0 % 09/29/2024 8:00 AM [facility] Neutrophil Absolute 6.45 1.60 - 7.50 x10E9/L 09/29/2024 8:00 AM [facility] Lymphocyte Absolute 1.65 1.00 - 4.40 x10E9/L 09/29/2024 8:00 AM [facility] Monocyte Absolute 1.05(H) 0.15 - 1.00 x10E9/L 09/29/2024 8:00 AM [facility] Eosinophil Absolute 0.02 0.00 - 0.60 x10E9/L 09/29/2024 8:00 AM [facility] Basophil Absolute 0.04 0.00 - 0.13 x10E9/L 09/29/2024 8:00 AM [facility] Blood BLOOD SPECIMEN / Unknown Venipuncture / Unknown 09/29/2024 7:40 AM CDT 09/29/2024 7:54 AM CDT us Иван Lucero MD LAB - HEMATOLOGY ORDERABLE S Final Result [facility] [address] [place] [address] * (ABNORMAL) COMPREHENSIVE METABOLIC PANEL (09/29/2024 7:40 AM CDT) Glucose 105(H) 70 - 99 mg/dL 09/29/2024 8:11 AM [facility] Sodium 135(L) 136 - 145 mmol/L 09/29/2024 8:11 AM [facility] Potassium 3.2(L) 3.5 - 5.1 mmol/L 09/29/2024 8:11 AM [facility] Chloride 101 98 - 107 mmol/L 09/29/2024 8:11 AM [facility] CO2 24 22 - 29 mmol/L 09/29/2024 8:11 AM [facility] Calcium 8.2(L) 8.4 - 10.4 mg/dL 09/29/2024 8:11 AM [facility] Anion Gap 10 6 - 16 mmol/L 09/29/2024 8:11 AM [facility] BUN 4(L) 5.3 - 18.7 mg/dL 09/29/2024 8:11 AM [facility] Creatinine 0.70 0.57 - 1.11 mg/dL 09/29/2024 8:11 AM [facility] Alkaline Phosphatase 101 40 - 150 U/L 09/29/2024 8:11 AM [facility] ALT 12 6 - 57 U/L 09/29/2024 8:11 AM [facility] AST 44 10 - 48 U/L 09/29/2024 8:11 AM [facility] Protein Total 6.4 6.4 - 8.3 gm/dL 09/29/2024 8:11 AM CDT [facility] Albumin 3.2 3.1 - 4.5 gm/dL 09/29/2024 8:11 AM CDT [facility] Bilirubin Total 0.3 0.2 - 1.2 mg/dL 09/29/2024 8:11 AM CDT [facility] eGFR by CKD-EPI >90 >=90 mL/min/1.7 3 m2 09/29/2024 8:11 AM CDT [facility] Blood BLOOD SPECIMEN / Unknown Venipuncture / Unknown 09/29/2024 7:40 AM CDT 09/29/2024 7:44 AM CDT Иван Lucero MD LAB - CHEMISTRY ORDERABLES Final Result [facility] [address] [place] [address] * (ABNORMAL) MAGNESIUM BLOOD (09/29/2024 7:40 AM CDT) Magnesium 1.4(L) 1.6 - 2.6 mg/dL 09/29/2024 8:11 AM CDT [facility] Blood BLOOD SPECIMEN / Unknown Venipuncture / Unknown 09/29/2024 7:40 AM CDT 09/29/2024 7:44 AM CDT Иван Lucero MD LAB - CHEMISTRY ORDERABLES Final Result [facility] [address], [place] [id number] * LIPASE BLOOD (09/29/2024 7:40 AM CDT) Lipase 19 <60 U/L 09/29/2024 8:11 AM CDT [facility] Blood BLOOD SPECIMEN / Unknown Venipuncture / Unknown 09/29/2024 7:40 AM CDT 09/29/2024 7:44 AM CDT Иавн Lucero MD LAB - CHEMISTRY ORDERABLES Final Result Performing Organization Address [facility] de Phone Number [facility] [address] [place] [address] * HCG BLOOD QUALITATIVE (09/29/2024 7:40 AM CDT) Pathologist [facility] HCG Qual Serum Negative Negative 09/29/2024 7:58 AM CDT [facility] Blood BLOOD SPECIMEN / Unknown Venipuncture / Unknown 09/29/2024 7:40 AM CDT 09/29/2024 7:43 AM CDT Narrative [facility] - 09/29/2024 7:58 AM CDT Specimens containing human anti-mouse antibodies may exhibit false positive or false negative results. If qualitative interpretation is inconsistent with clinical evaluation, consider confirmation by an alternative hCG method. Иван Lucero MD LAB - CHEMISTRY ORDERABLES Final Result Performing Organization Address [facility] de Phone Number [facility] [address] [place] [address] * EKG 12-LEAD (09/29/2024 7:35 AM CDT) Pathologist [facility] Ventricular Rate 80 BPM [facility] Atrial Rate 80 BPM [facility] P-R Interval 136 ms [facility] QRS Duration ms 74 ms [facility] Q-T Interval ms 358 ms [facility] QTC Calculation (Bezet) 412 ms [facility]USE Calculated P [place] 59 degrees [facility] MUSE Calculated R [place] 55 degrees [facility] MUSE Calculated T [place] 65 degrees [facility] MUSE Interpretation EKG Normal sinus rhythm Possible Left atrial enlargement Nonspecific ST and T wave abnormality Abnormal ECG No previous ECGs available Confirmed by GT STEIN MD ([id number]) on 10/01/2024 5:41:03 PM [facility] 09/29/2024 7:35 AM CDT 10/01/2024 5:41 PM CDT Иван Lucero MD ECG ORDERABLES Edited Res ult - Final Performing Organization Address [facility] Co de Phone Number [facility] * LIPID PROFILE (07/10/2024 8:34 AM CDT) Cholesterol 170 <200 mg/dL 07/10/2024 9:11 AM CDT [facility] Triglycerides 88 <150 mg/dL 07/10/2024 9:11 AM CDT [facility] HDL Cholesterol 57 >40 mg/dL 9:11 AM CDT [facility] LDL Calculated 95 <130 mg/dL 07/10/2024 9:11 AM CDT [facility] VLDL Calculated 18 <=30 mg/dL 9:11 AM CDT [facility] Chol HDL Ratio 3.0 <4.5 07/10/2024 9:11 AM CDT [facility] LDL/HDL Ratio 1.7 <5.0 07/10/2024 9:11 AM CDT [facility] Blood BLOOD SPECIMEN / Unknown Venipuncture / Unknown 07/10/2024 8:34 AM CDT 07/10/2024 8:38 AM CDT us [facility] - CHEMISTRY ORDERABLE S Final Result [facility] [id number] [id number] * HIV-1 HIV-2 ANTIBODY + HIV P24 AG PANEL (01/13/2021 11:16 PM CDT) HIV1/2 Ab + P24 Ag Non Reactive Non Reactive 01/14/2021 12:08 AM CDT [facility] Blood BLOOD SPECIMEN / Unknown Venipuncture / Unknown 01/13/2021 11:16 PM CDT 01/13/2021 11:26 PM CDT Narrative [facility] - 01/14/2021 12:08 AM CDT No Laboratory evidence of HIV infection. us Gary Olguin MD LAB - CHEMISTRY ORDERA BLES Final Result [facility] [id number] [place], [place] [id number] from Last 3 Months or Most Recently Relevant to Health Maintenance Insurance ANTHEM ANTHEM Advance Directives * Full Code (Latest Code Status on File) Date Activated Date Inactivated Comments 09/29/2024 1:43 PM 10/01/2024 4:05 PM * Full Code Date Activated Date Inactivated Comments 07/07/2024 9:32 PM 07/12/2024 4:18 PM * Full Code Date Activated Date Inactivated Comments 01/20/2021 3:56 PM 01/22/2021 4:17 PM * Full Code Date Activated Date Inactivated Comments 01/17/2021 9:22 PM 01/20/2021 2:14 PM * Full Code Date Activated Date Inactivated Comments 01/14/2021 8:15 AM 01/17/2021 8:28 PM Care Teams Personnel Research Scientist Relationship Specialty Start Date End Date Bryn Cervantes MD PCP - General 09/28/21 Unknown, Provider 08/23/16
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
--- NOTE | 2024-12-23 17:53 | PCCCNOTE ---
Found the address in a prior admission of [address] [facility] [address]. with the owner manager listed as Kinza Roldan. Called [facility] at [phone] and spoke with dispatch. They will go to the residents house and notify them the pt is currently here at [place] [facility] requesting her to call and come pick her up. Spoke with officer with the badge# [id number]. ED Charge updated on the current plan.-lonny
[2024-12-23] MEDS: KCL 20 MEQ/SW 100 ML 100 ML 50 MEQ IVPB (18:16)
--- NOTE | 2024-12-23 22:06 | PC.NURSE ---
Kim with Crisis [facility]ake notified of provider request for evaluation. States they will be visiting the ER in approx 90 mins
[2024-12-23] MEDS: POTASSIUM CHLORIDE 20 MEQ ER TABLET 40 MEQ PO (22:47)
[2024-12-23 23:09] LABS: Influenza A QL RT-PCR Negative (Negative); Influenza B QL RT-PCR Negative (Negative); RSV RNA, RT-PCR Negative (Negative); SARS-CoV-2 RNA PCR Negative (Negative)
[2024-12-23 23:16] LABS: Thyroid Stimulating Hormone Reflex 0.443 uIU/mL (0.465-4.68)
[2024-12-23 23:46] LABS: Free T4 Free Thyroxine Reflex 0.94 ng/dL (0.78-2.19)
[2024-12-24 00:33] LABS: Total Triiodothyronine (T3) 0.64 NG/ML (0.82-1.58)
[2024-12-24] MEDS: ONDANSETRON INJ 4 MG/2 ML VIAL IV PUSH (01:46)
== END 2024-12-24 03:36 ==
PROVIDERS: Registered Nurse; Emergency Provider Emergency Medicine
DX: F10.120 Alcohol abuse with intoxication, uncomplicated (principal); Y90.3 Blood alcohol level of 60-79 mg/100 ml; Z20.822 Contact with and (suspected) exposure to COVID-19
CPT/HCPCS: 36415; 70450; 80053; 80307; 81003; 81025; 82077; 83735; 84100; 84439; 84443; 84480; 85025; 85610; 85730; 87637; 96361; 96365; 96366; 96375; 99285; A9270; J2405; J3411; J3480; J7030